=== PATIENT | male | born 1995 | race Two or more races ===

== ENCOUNTER 2018-08-21 16:21 | Emergency (ER) | payer MEDICAID, OTHER ==
[~2018-08-21] VITALS: Ht 167.6 cm; Wt 72.6 kg
[2018-08-21] MEDS ORDERED: SODIUM CHLORIDE 0.9% 1,000 ML IVB ONE (18:48)
[2018-08-21] MEDS ORDERED: PANTOPRAZOLE 40 MG/10 ML VIAL IV STA (18:48)
[2018-08-21] MEDS ORDERED: PROCHLORPERAZINE EDISYLATE 5 MG/ML 2ML VIAL IV ONE (19:00)
[2018-08-21 19:34] LABS: Basophils # (auto) 0 uL; Basophils % (auto) 0.4 % (0.0-2.0); Eosinophils # (auto) 0 uL; Eosinophils % (auto) 0.1 % (0.0-7.0); Hematocrit 46.2 % (41.0-53.0); Hemoglobin 15.8 g/dL (13.5-17.5); Lymphocytes % (auto) 28.9 % (10.0-50.0); Mean Corpuscular Hemoglobin 30.7 pg (28.0-32.0); Mean Corpuscular Hgb Conc. 34.2 g/dL (32.0-36.0); Mean Corpuscular Volume 89.8 fL (80.0-100.0); Monocytes # (auto) 0.4 uL; Monocytes % (auto) 5.6 % (0.0-12.0); Neutrophils # (auto) 4.4 uL; Nucleated Red Blood Cells % 0.1 %; Platelet Count (auto) 233 10^3/uL (140-450); Red Blood Cells 5.15 10^6/uL (4.5-5.90); Red Cell Distribution Width 12.9 % (11.8-14.3); White Blood Cell 6.8 10^3/uL (4.4-10.8)
[2018-08-21 19:51] LABS: Albumin 4.1 g/dL (3.4-5.0)
[2018-08-21 19:54] LABS: BUN/Creatinine Ratio 20.8; Bilirubin, Total 1.1 mg/dL (0.2-1.0); Total Protein 7.9 g/dL (6.4-8.2)
[2018-08-21 21:07] VITALS: BP 126/75
== END 2018-08-21 21:07 | disposition home or self-care (01) ==
LOC: ER 16:21
DX: K29.00 Acute gastritis without bleeding (principal); E11.9 Type 2 diabetes mellitus without complications; F12.90 Cannabis use, unspecified, uncomplicated
CPT/HCPCS: 36415; 80053; 82150; 82962; 83690; 85025; 94761; 96361; 96374; 96375; 99283; C9113; J0780; J7030

== ENCOUNTER 2020-09-16 14:44 | Inpatient (IN) | payer MEDICAID, OTHER ==
[~2020-09-16] VITALS: Ht 180.3 cm; Wt 80.5 kg
[~2020-09-16 14:44] MED LIST: INSLANTI SC; ONDA-144 PO; PANT40TA2 PO
[2020-09-16 15:19] LABS: Basophils # (auto) 0 10 ^3/uL (0-0.2); Basophils % (auto) 0.3 % (0.0-2.0); Eosinophils # (auto) 0 10 ^3/uL (0-0.8); Eosinophils % (auto) 0.1 % (0.0-7.0); Hematocrit 41.3 % (41.0-53.0); Hemoglobin 14.2 g/dL (13.5-17.5); Lymphocytes # (auto) 1.2 10 ^3/uL (0.4-5.4); Lymphocytes % (auto) 15.8 % (10.0-50.0); Mean Corpuscular Hemoglobin 30.9 pg (28.0-32.0); Mean Corpuscular Hgb Conc. 34.3 g/dL (32.0-36.0); Mean Corpuscular Volume 90.1 fL (80.0-100.0); Monocytes # (auto) 0.4 10 ^3/uL (0-1.3); Neutrophils # (auto) 5.9 10 ^3/uL (1.6-8.6); Neutrophils % (auto) 78.8 % (37.0-80.0); Nucleated Red Blood Cells % 0.1 %; Red Blood Cells 4.58 10^6/uL (4.5-5.90); Red Cell Distribution Width 14.3 % (11.8-14.3); White Blood Cell 7.5 10^3/uL (4.4-10.8)
[2020-09-16 15:41] LABS: Albumin 4.2 g/dL (3.4-5.0); BUN/Creatinine Ratio 24.1; Calcium 8.7 mg/dL (8.5-10.1); Potassium 3.6 mmol/L (3.5-5.1)
[2020-09-16 15:49] LABS: Bilirubin, Total 0.9 mg/dL (0.2-1.0); Total Protein 8.5 g/dL (6.4-8.2)
[2020-09-16] MEDS ORDERED: SODIUM CHLORIDE 0.9% 1,000 ML IVB ONE (16:15)
[2020-09-16] MEDS ORDERED: ONDANSETRON HCL 4 MG/2 ML VIAL IV ONE (16:15)
[2020-09-16 17:25] LABS: Urine Bacteria NONE SEEN /hpf (None Seen); Urine Blood 1+ /uL (Negative); Urine Mucus FEW (None Seen); Urine Specific Gravity 1.032 (1.001-1.035); Urine WBC 2 /hpf (0 - 3)
[2020-09-16 17:46] LABS: Alcohol, Urine < 3.0 mg/dL (0-10); Amphetamine Screen, Urine NEGATIVE (NEGATIVE); Barbiturate Scree,Urine NEGATIVE (NEGATIVE); Benzodiazephine Screen, Urine NEGATIVE (NEGATIVE); Cannabinoid Screen, Urine POSITIVE (NEGATIVE); Cocaine Screen, Urine NEGATIVE (NEGATIVE); Opiate Scree,Urine NEGATIVE (NEGATIVE); Phencyclidine Screen, Urine NEGATIVE (NEGATIVE)
[2020-09-16] MEDS ORDERED: ONDANSETRON HCL 4 MG/2 ML VIAL IV PRN (20:15)
[2020-09-16] MEDS ORDERED: TEMAZEPAM 15 MG CAP PO PRN (20:15)
[2020-09-16] MEDS ORDERED: DEXTROSE (50%) 50ML SYRG IV PRN (20:15)
[2020-09-16] MEDS ORDERED: MORPHINE SULFATE INJECTION 2 MG/ML SYRG IV PRN (20:15)
[2020-09-16] MEDS ORDERED: DOCUSATE SOD 100 MG CAP PO PRN (20:15)
[2020-09-16] MEDS ORDERED: HYDROcodone-ACET 5/325MG TAB PO PRN (20:15)
[2020-09-16 21:40] VITALS: BP 162/111
[2020-09-16 22:20] VITALS: BP 162/111
[2020-09-16] MEDS: hydrALAZINE HCL 20 MG/ML VL IV PRN (22:32)
[2020-09-16] MEDS: FAMOTIDINE 20 MG TAB PO SCH (22:32)
[2020-09-16] MEDS: MORPHINE SULFATE 4 MG/ML SYR/VIAL IV PRN (22:33)
[2020-09-16] MEDS: ACCU-CHEK COMFORT CURVE STRIP VI SCH (22:41)
[2020-09-16] MEDS: InsuLIN REG 1unit/0.01ml Soln (100units/ml) SC SCH (23:10)
[2020-09-17] MEDS: MORPHINE SULFATE 4 MG/ML SYR/VIAL IV PRN ×2 (03:53→16:17)
[2020-09-17 05:00] VITALS: BP 146/91
[2020-09-17] MEDS: ACCU-CHEK COMFORT CURVE STRIP VI SCH ×4 (06:26→21:43)
[2020-09-17] MEDS: InsuLIN REG 1unit/0.01ml Soln (100units/ml) SC SCH ×4 (06:51→22:18)
[2020-09-17 07:45] LABS: Basophils # (auto) 0 10 ^3/uL (0-0.2); Basophils % (auto) 0.2 % (0.0-2.0); Eosinophils # (auto) 0 10 ^3/uL (0-0.8); Hematocrit 40.4 % (41.0-53.0); Hemoglobin 13.8 g/dL (13.5-17.5); Lymphocytes # (auto) 1.7 10 ^3/uL (0.4-5.4); Lymphocytes % (auto) 22.8 % (10.0-50.0); Mean Corpuscular Hemoglobin 30.6 pg (28.0-32.0); Mean Corpuscular Hgb Conc. 34.1 g/dL (32.0-36.0); Mean Corpuscular Volume 89.9 fL (80.0-100.0); Monocytes # (auto) 0.6 10 ^3/uL (0-1.3); Monocytes % (auto) 8.1 % (0.0-12.0); Neutrophils % (auto) 68.9 % (37.0-80.0); Nucleated Red Blood Cells % 0.1 %; Red Blood Cells 4.49 10^6/uL (4.5-5.90); Red Cell Distribution Width 14.2 % (11.8-14.3); White Blood Cell 7.3 10^3/uL (4.4-10.8)
[2020-09-17 08:00] VITALS: BP 148/73
[2020-09-17 08:00] LABS: Calcium 8.7 mg/dL (8.5-10.1); Potassium 3.7 mmol/L (3.5-5.1)
[2020-09-17 08:03] LABS: BUN/Creatinine Ratio 25.4
[2020-09-17 08:06] LABS: Bilirubin, Total 0.8 mg/dL (0.2-1.0)
[2020-09-17 08:30] VITALS: BP 148/73
[2020-09-17] MEDS: FAMOTIDINE 20 MG TAB PO SCH ×2 (09:55→21:35)
[2020-09-17] MEDS: PANTOPRAZOLE 40 MG/10 ML VIAL INJ IV SCH (09:55)
[2020-09-17 13:27] VITALS: BP 125/74
[2020-09-17 16:38] VITALS: BP 138/88
[2020-09-17] MEDS: PIPERACILLIN-TAZOB 3.375GM 100 ML IV SCH (21:34)
[2020-09-17 22:00] VITALS: BP 123/89
[2020-09-18 05:00] VITALS: BP 125/83
[2020-09-18] MEDS: ACCU-CHEK COMFORT CURVE STRIP VI SCH ×4 (06:12→21:44)
[2020-09-18] MEDS: PIPERACILLIN-TAZOB 3.375GM 100 ML IV SCH ×3 (06:26→22:22)
[2020-09-18] MEDS: NITROGLYCERIN 0.4 MG SL TAB SL PRN ×3 (06:34→06:52)
[2020-09-18] MEDS ORDERED: ASPirin 81 mg TAB PO ONE (07:00)
[2020-09-18] MEDS: InsuLIN REG 1unit/0.01ml Soln (100units/ml) SC SCH ×4 (07:10→22:03)
[2020-09-18 08:15] VITALS: BP 135/76
[2020-09-18] MEDS: FAMOTIDINE 20 MG TAB PO SCH ×2 (10:29→21:43)
[2020-09-18] MEDS: PANTOPRAZOLE 40 MG/10 ML VIAL INJ IV SCH (10:29)
[2020-09-18 12:00] VITALS: BP 135/76
[2020-09-18] MEDS: hydrALAZINE HCL 20 MG/ML VL IV PRN (17:03)
[2020-09-18 17:06] VITALS: BP 140/106
[2020-09-18 22:00] VITALS: BP 143/94
[2020-09-19 05:00] VITALS: BP 111/69
[2020-09-19] MEDS: ACCU-CHEK COMFORT CURVE STRIP VI SCH ×2 (06:02→11:30)
[2020-09-19] MEDS: PIPERACILLIN-TAZOB 3.375GM 100 ML IV SCH ×2 (06:02→14:00)
[2020-09-19] MEDS: InsuLIN REG 1unit/0.01ml Soln (100units/ml) SC SCH ×2 (06:20→11:30)
[2020-09-19] MEDS ORDERED: GLIMEPIRIDE 2 MG TAB PO SCH (07:00)
[2020-09-19 07:19] LABS: Basophils # (auto) 0 10 ^3/uL (0-0.2); Basophils % (auto) 0.4 % (0.0-2.0); Eosinophils # (auto) 0 10 ^3/uL (0-0.8); Eosinophils % (auto) 0.3 % (0.0-7.0); Hematocrit 39.1 % (41.0-53.0); Hemoglobin 13.3 g/dL (13.5-17.5); Lymphocytes # (auto) 1.4 10 ^3/uL (0.4-5.4); Lymphocytes % (auto) 30.1 % (10.0-50.0); Mean Corpuscular Hemoglobin 30.3 pg (28.0-32.0); Mean Corpuscular Volume 89.3 fL (80.0-100.0); Monocytes # (auto) 0.6 10 ^3/uL (0-1.3); Neutrophils # (auto) 2.6 10 ^3/uL (1.6-8.6); Neutrophils % (auto) 56.2 % (37.0-80.0); Nucleated Red Blood Cells % 0.1 %; Red Blood Cells 4.38 10^6/uL (4.5-5.90); Red Cell Distribution Width 14.2 % (11.8-14.3); White Blood Cell 4.7 10^3/uL (4.4-10.8)
[2020-09-19 07:38] LABS: Chloride 99 mmol/L (98-107); Potassium 3.1 mmol/L (3.5-5.1); Sodium 137 mmol/L (136-145)
[2020-09-19 07:54] LABS: Alanine Aminotransferase 36 U/L (16-61); Albumin 3.6 g/dL (3.4-5.0); Alkaline Phosphatase 84 U/L (45-117); Aspartate Aminotransferase 27 U/L (15-37); BUN/Creatinine Ratio 21.3; Bilirubin, Total 1.3 mg/dL (0.2-1.0); Blood Urea Nitrogen 13 mg/dL (7-18); Calcium 8.8 mg/dL (8.5-10.1); Carbon Dioxide 27 mmol/L (21-32); GFR African American 204 mL/min; GFR Non-African American 169 mL/min; Glucose 180 mg/dL (74-106); Magnesium 2.2 mg/dL (1.6-2.6); Total Protein 7.3 g/dL (6.4-8.2)
[2020-09-19 08:20] VITALS: BP 119/77
[2020-09-19 08:47] LABS: Anion Gap 11 (5-15)
[2020-09-19] MEDS: PANTOPRAZOLE 40 MG/10 ML VIAL INJ IV SCH (09:50)
[2020-09-19] MEDS: FAMOTIDINE 20 MG TAB PO SCH (09:51)
[2020-09-19] MEDS ORDERED: POTASSIUM CHL 20 Meq TABLET PO ONE (11:45)
[2020-09-19] MEDS: MORPHINE SULFATE 4 MG/ML SYR/VIAL IV PRN (12:02)
[2020-09-19 12:45] VITALS: BP 142/84
== END 2020-09-19 15:59 | disposition home or self-care (01) | DRG 251 ==
LOC: EDBD 14:44 → ER 14:44 → TELE 20:03 → MERGE 20:03 → TELE-CENTR 21:40
PROVIDERS: ADMIT Nurse Practitioner; ATTEND Nurse Practitioner
DX: R10.13 Epigastric pain (principal); N13.30 Unspecified hydronephrosis; E11.40 Type 2 diabetes mellitus with diabetic neuropathy, unspecified; F12.10 Cannabis abuse, uncomplicated; F32.9 Major depressive disorder, single episode, unspecified; F41.9 Anxiety disorder, unspecified; Z20.822 Contact with and (suspected) exposure to COVID-19; Z79.4 Long term (current) use of insulin; Z82.49 Family history of ischemic heart disease and other diseases of the circulatory system; Z83.3 Family history of diabetes mellitus
CPT/HCPCS: 36415; 74176; 76775; 80053; 80307; 81001; 82150; 82962; 83036; 83690; 83735; 84484; 85025; 87426; 96361; 96365; 96375; C9113; G0378; J1815; J2405; J2543

== ENCOUNTER 2023-02-26 12:05 | Emergency (ER) | payer MEDICAID ==
[~2023-02-26] VITALS: Ht 177.8 cm; Wt 75.0 kg
[2023-02-26] MEDS ORDERED: SODIUM CHLORIDE 0.9% 1,000 ML IV ONE ×2 (12:45→16:15)
[2023-02-26] MEDS ORDERED: ONDANSETRON HCL 4 MG/2 ML VIAL IV ONE (12:45)
[2023-02-26 13:19] LABS: Basophils # (auto) 0 10 ^3/uL (0-0.2); Basophils % (auto) 0.4 % (0.0-2.0); Eosinophils # (auto) 0 10 ^3/uL (0-0.8); Eosinophils % (auto) 0.8 % (0.0-7.0); Hematocrit 36.2 % (41.0-53.0); Lymphocytes # (auto) 1.5 10 ^3/uL (0.4-5.4); Lymphocytes % (auto) 25.7 % (10.0-50.0); Mean Corpuscular Hemoglobin 30.2 pg (28.0-32.0); Mean Corpuscular Hgb Conc. 33.2 g/dL (32.0-36.0); Mean Corpuscular Volume 90.8 fL (80.0-100.0); Monocytes # (auto) 0.5 10 ^3/uL (0-1.3); Monocytes % (auto) 8.1 % (0.0-12.0); Neutrophils # (auto) 3.8 10 ^3/uL (1.6-8.6); Nucleated Red Blood Cells % 0.2 %; Red Blood Cells 3.99 10^6/uL (4.5-5.90); Red Cell Distribution Width 13.7 % (11.8-14.3); White Blood Cell 5.9 10^3/uL (4.4-10.8)
[2023-02-26 13:26] LABS: Urine Bacteria NONE SEEN /hpf (None Seen); Urine Blood 1+ /uL (Negative); Urine Clarity Clear (Clear); Urine Color Yellow (Yellow); Urine Hyaline Cast FEW /lpf (0 - 2); Urine Mucus FEW (None Seen); Urine Protein, UAD 3+ (Negative); Urine Urobilinogen Normal (Negative); Urine WBC 2 /hpf (0 - 3)
[2023-02-26 13:33] LABS: Amphetamine Screen, Urine Neg (NEGATIVE); Barbiturate Scree,Urine Neg (NEGATIVE); Benzodiazephine Screen, Urine Neg (NEGATIVE); Cocaine Screen, Urine Neg (NEGATIVE); Opiate Scree,Urine Neg (NEGATIVE); Phencyclidine Screen, Urine Neg (NEGATIVE)
[2023-02-26 13:34] LABS: Cannabinoid Screen, Urine Pos (NEGATIVE)
[2023-02-26 13:35] LABS: Alanine Aminotransferase 30 U/L (7-40); Albumin 4.4 g/dL (3.2-4.8); Alkaline Phosphatase 63 U/L (46-116); Anion Gap 6.8 (5-15); Aspartate Aminotransferase 14 U/L (13-40); BUN/Creatinine Ratio 14.8 (10.0-20.0); Blood Alcohol < 3.0 mg/dL (<10); Blood Urea Nitrogen 17 mg/dL (9-23); Calcium 9.3 mg/dL (8.5-10.1); Carbon Dioxide 30.2 mmol/L (20-30); Chloride 102 mmol/L (98-107); Creatine Kinase IFCC 340 U/L (46-171); Glucose 206 mg/dL (74-106); Lipase 55 U/L (12-53); Magnesium 2.3 mg/dL (1.6-2.6); Sodium 139 mmol/L (136-145); Total Protein 7.2 g/dL (5.7-8.2)
[2023-02-26] MEDS ORDERED: IOHEXOL 300 MG/ML 100ML BOTTLE IJ ONE (14:34)
[2023-02-26] MEDS ORDERED: ZOFR4T PO (16:52)
[2023-02-26 17:48] VITALS: BP 161/118; PULSE 99; RESP 17; TEMP 98; O2SAT 100
== END 2023-02-26 17:53 | disposition home or self-care (01) ==
LOC: ER 12:05
DX: E86.0 Dehydration (principal); F12.10 Cannabis abuse, uncomplicated; M54.9 Dorsalgia, unspecified; E11.9 Type 2 diabetes mellitus without complications; Z79.899 Other long term (current) drug therapy
CPT/HCPCS: 36415; 74177; 80053; 80307; 80320; 81001; 82550; 82962; 83605; 83690; 83735; 85025; 96360; 96361; 99285; J7030; Q9967

== ENCOUNTER 2023-08-19 14:10 | Emergency (ER) | payer MEDICAID ==
[~2023-08-19] VITALS: Ht 177.8 cm; Wt 77.2 kg
[~2023-08-19 14:10] MED LIST changes: +ZOFR4T PO
[2023-08-19 15:28] LABS: Basophils # (auto) 0 10 ^3/uL (0-0.2); Basophils % (auto) 0.6 % (0.0-2.0); Eosinophils # (auto) 0.2 10 ^3/uL (0-0.8); Eosinophils % (auto) 2.7 % (0.0-7.0); Hematocrit 33.6 % (41.0-53.0); Hemoglobin 11.3 g/dL (13.5-17.5); Lymphocytes # (auto) 1.7 10 ^3/uL (0.4-5.4); Lymphocytes % (auto) 24.8 % (10.0-50.0); Mean Corpuscular Hemoglobin 31.2 pg (28.0-32.0); Mean Corpuscular Hgb Conc. 33.5 g/dL (32.0-36.0); Mean Corpuscular Volume 92.9 fL (80.0-100.0); Monocytes # (auto) 0.5 10 ^3/uL (0-1.3); Monocytes % (auto) 7.4 % (0.0-12.0); Neutrophils # (auto) 4.5 10 ^3/uL (1.6-8.6); Neutrophils % (auto) 64.5 % (37.0-80.0); Red Blood Cells 3.62 10^6/uL (4.5-5.90); Red Cell Distribution Width 14.5 % (11.8-14.3); White Blood Cell 7.1 10^3/uL (4.4-10.8)
[2023-08-19 15:47] LABS: Alanine Aminotransferase 16 U/L (7-40); Alkaline Phosphatase 56 U/L (46-116); Anion Gap 1 (5-15); Aspartate Aminotransferase 18 U/L (13-40); BUN/Creatinine Ratio 14.5 (10.0-20.0); Bilirubin, Total 0.7 mg/dL (0.2-1.0); Blood Urea Nitrogen 19 mg/dL (9-23); Calcium 9.5 mg/dL (8.5-10.1); Carbon Dioxide 33 mmol/L (20-30); Chloride 109 mmol/L (98-107); Glucose 136 mg/dL (74-106); Potassium 5.4 mmol/L (3.5-5.1); Sodium 143 mmol/L (136-145); Total Protein 6.3 g/dL (5.7-8.2)
[2023-08-19] MEDS: ALBUTEROL SULF 2.5 MG/0.5ML(0.5%) NEB SOLN NEB ONE (16:23)
[2023-08-19] MEDS: ALBUTEROL SULF 2.5 MG/0.5ML(0.5%) NEB SOLN ONE (16:23)
[2023-08-19 17:23] LABS: Urine Bacteria NONE SEEN /hpf (None Seen); Urine Blood 1+ /uL (Negative); Urine Clarity Clear (Clear); Urine Color Yellow (Yellow); Urine Hyaline Cast FEW /lpf (0 - 2); Urine Protein, UAD 3+ (Negative); Urine Specific Gravity 1.015 (1.001-1.035); Urine Urobilinogen Normal (Negative); Urine WBC 1 /hpf (0 - 3)
[2023-08-19] MEDS: FUROSEMIDE 20 MG/2 ML VIAL IV ONE (19:56)
[2023-08-19 20:00] VITALS: BP 125/92; PULSE 94; RESP 16; TEMP 98.2; O2SAT 96
== END 2023-08-19 20:00 | disposition home or self-care (01) ==
LOC: ER 14:10
DX: I10 Essential (primary) hypertension (principal); E87.5 Hyperkalemia; E11.9 Type 2 diabetes mellitus without complications; F12.10 Cannabis abuse, uncomplicated
CPT/HCPCS: 36415; 71045; 80053; 81001; 83880; 84484; 85025; 93005; 94640; 96374; 99285; J1940

== ENCOUNTER 2023-09-07 21:41 | Emergency (ER) | payer MEDICAID ==
[~2023-09-07] VITALS: Ht 177.8 cm; Wt 77.3 kg
[2023-09-07 22:07] VITALS: BP 127/87; PULSE 88; RESP 18; TEMP 97.4
[2023-09-08] MEDS: BACITRACIN TOP OINT 1 UD PKG TOP ONE (00:22)
[2023-09-08] MEDS: KETOROLAC TROMETH 30 MG/ML 1ML VIAL IM ONE (00:28)
[2023-09-08] MEDS: TETANUS-DIPTH-ACEL PERTUSSIS 0.5ML SYR Tdap IM ONE (00:28)
[2023-09-08 00:42] VITALS: O2SAT 98
== END 2023-09-08 00:55 | disposition home or self-care (01) ==
LOC: ER 21:41
DX: T25.231A Burn of second degree of right toe(s) (nail), initial encounter (principal); I10 Essential (primary) hypertension; E11.9 Type 2 diabetes mellitus without complications; F12.10 Cannabis abuse, uncomplicated; X08.8XXA Exposure to other specified smoke, fire and flames, initial encounter; Y93.89 Activity, other specified; Y92.89 Other specified places as the place of occurrence of the external cause; Y99.8 Other external cause status
CPT/HCPCS: 16020; 90471; 90715; 96372; 99284; J1885

== ENCOUNTER 2023-09-10 16:18 | Emergency (ER) | payer MEDICAID ==
[~2023-09-10] VITALS: Ht 177.8 cm; Wt 77.3 kg
[2023-09-10] MEDS ORDERED: IBUP-1456 PO (22:02)
[2023-09-10] MEDS ORDERED: CEPH500C PO (22:02)
[2023-09-10 22:12] VITALS: BP 127/64; PULSE 84; RESP 16; TEMP 98; O2SAT 100
[2023-09-10] MEDS: cefTRIAXone SOD 1,000 MG VL IM ONE (22:28)
== END 2023-09-10 22:38 | disposition home or self-care (01) ==
LOC: ER 16:18
DX: T25.222D Burn of second degree of left foot, subsequent encounter (principal); T25.221D Burn of second degree of right foot, subsequent encounter; T31.0 Burns involving less than 10% of body surface; E11.9 Type 2 diabetes mellitus without complications; I10 Essential (primary) hypertension; F15.90 Other stimulant use, unspecified, uncomplicated; Z79.899 Other long term (current) drug therapy; X08.8XXD Exposure to other specified smoke, fire and flames, subsequent encounter
CPT/HCPCS: 16020; 96372; 99283; J0696

== ENCOUNTER 2024-04-15 18:04 | Inpatient (IN) | payer MEDICAID ==
[~2024-04-15] VITALS: Ht 177.8 cm; Wt 73.0 kg
[~2024-04-15 18:04] MED LIST changes: +CEPH500C PO; +IBUP-1456 PO
[2024-04-15 19:01] LABS: Urine Bacteria None Seen /hpf (None Seen)
[2024-04-15 19:27] LABS: Urine Amorphous Crystal FEW /hpf (None Seen); Urine Blood 1+ /uL (Negative); Urine Clarity Clear (Clear); Urine Color Light-Yellow (Yellow); Urine Hyaline Cast FEW /lpf (0 - 2); Urine Protein, UAD 3+ (Negative); Urine Specific Gravity 1.016 (1.001-1.035); Urine Urobilinogen Normal (Negative); Urine WBC 1 /hpf (0 - 3)
[2024-04-15 19:28] LABS: Amphetamine Screen, Urine Neg (NEGATIVE); Barbiturate Scree,Urine Neg (NEGATIVE); Benzodiazephine Screen, Urine Neg (NEGATIVE)
[2024-04-15 19:29] LABS: Cannabinoid Screen, Urine Pos (NEGATIVE); Cocaine Screen, Urine Neg (NEGATIVE); Opiate Scree,Urine Neg (NEGATIVE); Phencyclidine Screen, Urine Neg (NEGATIVE)
[2024-04-15 19:53] LABS: Basophils # (auto) 0 10 ^3/uL (0-0.2); Basophils % (auto) 0.8 % (0.0-2.0); Eosinophils # (auto) 0 10 ^3/uL (0-0.8); Eosinophils % (auto) 0.8 % (0.0-7.0); Hematocrit 34.7 % (41.0-53.0); Hemoglobin 11.9 g/dL (13.5-17.5); Lymphocytes # (auto) 1.6 10 ^3/uL (0.4-5.4); Lymphocytes % (auto) 28.9 % (10.0-50.0); Mean Corpuscular Hemoglobin 32.2 pg (28.0-32.0); Mean Corpuscular Hgb Conc. 34.4 g/dL (32.0-36.0); Mean Corpuscular Volume 93.6 fL (80.0-100.0); Monocytes # (auto) 0.4 10 ^3/uL (0-1.3); Monocytes % (auto) 7.4 % (0.0-12.0); Neutrophils # (auto) 3.4 10 ^3/uL (1.6-8.6); Neutrophils % (auto) 62.1 % (37.0-80.0); Platelet Count (auto) 219 10^3/uL (140-450); Red Cell Distribution Width 13.5 % (11.8-14.3); White Blood Cell 5.5 10^3/uL (4.4-10.8)
[2024-04-15 20:06] LABS: Alanine Aminotransferase 23 U/L (7-40); Albumin 4.4 g/dL (3.2-4.8); Alkaline Phosphatase 67 U/L (46-116); Anion Gap 4 (5-15); Aspartate Aminotransferase 13 U/L (13-40); BUN/Creatinine Ratio 16.7 (10.0-20.0); Bilirubin, Total 0.5 mg/dL (0.2-1.0); Blood Urea Nitrogen 35 mg/dL (9-23); Calcium 9.8 mg/dL (8.7-10.4); Carbon Dioxide 29 mmol/L (20-31); Chloride 105 mmol/L (98-107); Glucose 218 mg/dL (74-106); Lipase 60 U/L (12-53); Magnesium 2.7 mg/dL (1.6-2.6); Potassium 5.5 mmol/L (3.5-5.1); Sodium 138 mmol/L (136-145); Total Protein 7.1 g/dL (5.7-8.2)
[2024-04-15] MEDS: ALBUTEROL SULF 2.5 MG/0.5ML(0.5%) NEB SOLN ONE (21:04)
[2024-04-15] MEDS: ALBUTEROL SULF 2.5 MG/0.5ML(0.5%) NEB SOLN NEB ONE (21:04)
[2024-04-16] MEDS ORDERED: ONDANSETRON HCL 4 MG/2 ML VIAL IV PRN (05:45)
[2024-04-16] MEDS ORDERED: DEXTROSE (50%) 50ML SYRG IV PRN (05:45)
[2024-04-16 06:35] VITALS: PULSE 98; RESP 22; O2SAT 99
[2024-04-16] MEDS: SODIUM CHLORIDE 0.9% 1,000 ML IV ONE ×3 (07:01→08:18)
[2024-04-16] MEDS: ONDANSETRON HCL 4 MG/2 ML VIAL IV ONE (07:06)
[2024-04-16] MEDS: CALCIUM GLUC 1,000mg/50ml-NS 50 ML IV ONE (07:12)
[2024-04-16 07:50] LABS: Anion Gap 9 (5-15); Carbon Dioxide 24 mmol/L (20-31); Chloride 106 mmol/L (98-107); Potassium 4.9 mmol/L (3.5-5.1); Sodium 139 mmol/L (136-145)
[2024-04-16 07:51] LABS: Calcium 9.4 mg/dL (8.7-10.4)
[2024-04-16 07:56] LABS: BUN/Creatinine Ratio 11.5 (10.0-20.0); Blood Alcohol < 3.0 mg/dL (<10); Blood Urea Nitrogen 27 mg/dL (9-23); Glucose 202 mg/dL (74-106)
[2024-04-16 07:57] LABS: Magnesium 2.8 mg/dL (1.6-2.6)
[2024-04-16 08:00] VITALS: PULSE 95; RESP 12; O2SAT 98
[2024-04-16 08:11] LABS: Basophils # (auto) 0 10 ^3/uL (0-0.2); Basophils % (auto) 0.4 % (0.0-2.0); Eosinophils # (auto) 0.1 10 ^3/uL (0-0.8); Eosinophils % (auto) 1.1 % (0.0-7.0); Hematocrit 33.7 % (41.0-53.0); Hemoglobin 11.5 g/dL (13.5-17.5); Lymphocytes # (auto) 1.7 10 ^3/uL (0.4-5.4); Lymphocytes % (auto) 25.4 % (10.0-50.0); Mean Corpuscular Hemoglobin 32.7 pg (28.0-32.0); Mean Corpuscular Hgb Conc. 34.1 g/dL (32.0-36.0); Mean Corpuscular Volume 95.8 fL (80.0-100.0); Monocytes # (auto) 0.6 10 ^3/uL (0-1.3); Monocytes % (auto) 9.4 % (0.0-12.0); Neutrophils # (auto) 4.3 10 ^3/uL (1.6-8.6); Neutrophils % (auto) 63.7 % (37.0-80.0); Platelet Count (auto) 192 10^3/uL (140-450); Red Blood Cells 3.52 10^6/uL (4.5-5.90); White Blood Cell 6.8 10^3/uL (4.4-10.8)
[2024-04-16] MEDS: ACCU-CHEK COMFORT CURVE STRIP VI SCH (08:18)
[2024-04-16] MEDS: FUROSEMIDE 20 MG/2 ML VIAL IV ONE (08:27)
[2024-04-16] MEDS: InsuLIN REG 1unit/0.01ml Soln (100units/ml) SC SCH (08:27)
[2024-04-16 08:48] LABS: Lipase 58 U/L (12-53)
[2024-04-16] MEDS: SODIUM CHLORIDE 0.9% 1,000 ML IV SCH ×2 (10:00→12:52)
[2024-04-16] MEDS: PANTOPRAZOLE 40 MG/10 ML VIAL INJ IV SCH (10:10)
[2024-04-16 14:07] LABS: Urine Bacteria None Seen /hpf (None Seen); Urine Blood TRACE /uL (Negative); Urine Clarity Clear (Clear); Urine Color Light-Yellow (Yellow); Urine Hyaline Cast FEW /lpf (0 - 2); Urine Protein, UAD 2+ (Negative); Urine Specific Gravity 1.009 (1.001-1.035); Urine Urobilinogen Normal (Negative); Urine WBC <1 /hpf (0 - 3); Urine pH 5.5 (5.0-9.0)
[2024-04-16] MEDS: LABETALOL HCL 20 MG/4 ML VL IV PRN (18:01)
[2024-04-16 18:04] LABS: COVID19 ANTIGEN SOFIA FIA NEGATIVE (NEGATIVE)
[2024-04-16] MEDS: HYDROcodone-ACET 5/325MG TAB PO PRN (18:15)
[2024-04-16 18:52] LABS: Chloride 108 mmol/L (98-107); Potassium 4.4 mmol/L (3.5-5.1); Sodium 140 mmol/L (136-145)
[2024-04-16 18:53] LABS: Anion Gap 6 (5-15); Calcium 9.1 mg/dL (8.7-10.4); Carbon Dioxide 26 mmol/L (20-31)
[2024-04-16 18:58] LABS: BUN/Creatinine Ratio 15.9 (10.0-20.0); Blood Urea Nitrogen 33 mg/dL (9-23); Glucose 129 mg/dL (74-106)
[2024-04-16 19:30] VITALS: PULSE 82; RESP 16; O2SAT 96
[2024-04-16] MEDS: amLODIPine BESYLATE 5 MG TAB PO ONE ×2 (20:09→23:08)
[2024-04-16 21:00] VITALS: BP 179/116; PULSE 98; RESP 20; TEMP 98.8; O2SAT 91
[2024-04-16 23:23] VITALS: PULSE 81; RESP 18
[2024-04-17] VITALS (8 sets, daily range): BP systolic 119–166; BP diastolic 76–97; PULSE 75–99; RESP 18–21; TEMP 98.2–99.3; O2SAT 94–99
[2024-04-17] MEDS ORDERED: METF-372 PO (00:03)
[2024-04-17 06:13] LABS: Basophils # (auto) 0 10 ^3/uL (0-0.2); Basophils % (auto) 0.5 % (0.0-2.0); Eosinophils # (auto) 0.1 10 ^3/uL (0-0.8); Eosinophils % (auto) 1.6 % (0.0-7.0); Hematocrit 32.6 % (41.0-53.0); Hemoglobin 11.4 g/dL (13.5-17.5); Lymphocytes # (auto) 1.5 10 ^3/uL (0.4-5.4); Lymphocytes % (auto) 22.8 % (10.0-50.0); Mean Corpuscular Hemoglobin 32.7 pg (28.0-32.0); Mean Corpuscular Volume 93.4 fL (80.0-100.0); Monocytes # (auto) 0.4 10 ^3/uL (0-1.3); Monocytes % (auto) 6.9 % (0.0-12.0); Neutrophils # (auto) 4.4 10 ^3/uL (1.6-8.6); Neutrophils % (auto) 68.2 % (37.0-80.0); Platelet Count (auto) 192 10^3/uL (140-450); Red Blood Cells 3.49 10^6/uL (4.5-5.90); Red Cell Distribution Width 13.5 % (11.8-14.3); White Blood Cell 6.4 10^3/uL (4.4-10.8)
[2024-04-17 06:23] LABS: Anion Gap 7 (5-15); Carbon Dioxide 26 mmol/L (20-31); Chloride 107 mmol/L (98-107); Potassium 4.6 mmol/L (3.5-5.1); Sodium 140 mmol/L (136-145)
[2024-04-17 06:25] LABS: Calcium 9.5 mg/dL (8.7-10.4)
[2024-04-17 06:29] LABS: BUN/Creatinine Ratio 12.8 (10.0-20.0); Blood Urea Nitrogen 23 mg/dL (9-23); Glucose 152 mg/dL (74-106)
[2024-04-17 06:30] LABS: Lipase 63 U/L (12-53)
[2024-04-17] MEDS: amLODIPine BESYLATE 5 MG TAB PO SCH (09:04)
[2024-04-17] MEDS: SUCRALFATE 1 GM/10 ML ORAL SUSP PO SCH (21:34)
[2024-04-17] MEDS: PANTOPRAZOLE 40 MG/10 ML VIAL INJ IV SCH (21:34)
[2024-04-18] VITALS (8 sets, daily range): BP systolic 123–153; BP diastolic 56–103; PULSE 78–102; RESP 18–22; TEMP 97.8–98.8; O2SAT 95–98
[2024-04-18] MEDS: hydrALAZINE HCL 20 MG/ML VL IV PRN (01:35)
[2024-04-18 05:37] LABS: Basophils # (auto) 0 10 ^3/uL (0-0.2); Basophils % (auto) 0.5 % (0.0-2.0); Eosinophils # (auto) 0.2 10 ^3/uL (0-0.8); Eosinophils % (auto) 2.6 % (0.0-7.0); Hematocrit 36.3 % (41.0-53.0); Hemoglobin 12.1 g/dL (13.5-17.5); Lymphocytes # (auto) 2.7 10 ^3/uL (0.4-5.4); Lymphocytes % (auto) 33.9 % (10.0-50.0); Mean Corpuscular Hemoglobin 31.4 pg (28.0-32.0); Mean Corpuscular Hgb Conc. 33.4 g/dL (32.0-36.0); Mean Corpuscular Volume 93.8 fL (80.0-100.0); Monocytes # (auto) 0.6 10 ^3/uL (0-1.3); Monocytes % (auto) 7.1 % (0.0-12.0); Neutrophils # (auto) 4.5 10 ^3/uL (1.6-8.6); Neutrophils % (auto) 55.9 % (37.0-80.0); Platelet Count (auto) 238 10^3/uL (140-450); Red Blood Cells 3.86 10^6/uL (4.5-5.90); Red Cell Distribution Width 13.8 % (11.8-14.3); White Blood Cell 8.1 10^3/uL (4.4-10.8)
[2024-04-18 05:40] LABS: Chloride 105 mmol/L (98-107); Potassium 4.6 mmol/L (3.5-5.1); Sodium 139 mmol/L (136-145)
[2024-04-18 05:41] LABS: Anion Gap 7 (5-15); Calcium 9.6 mg/dL (8.7-10.4); Carbon Dioxide 27 mmol/L (20-31)
[2024-04-18 05:46] LABS: BUN/Creatinine Ratio 10.3 (10.0-20.0); Blood Urea Nitrogen 19 mg/dL (9-23); Glucose 184 mg/dL (74-106)
[2024-04-18 10:17] LABS: INR 1.08 (0.9-1.15); Partial Thromboplastin Time 28.1 SEC (24.5-34.5); Prothrombin Time 11.4 sec (9.3-11.8)
[2024-04-18] MEDS ORDERED: PROPOFOL 10 MG/ML 20 ML IV ONE (15:03)
[2024-04-18] MEDS ORDERED: LIDOCAINE 2% (LOCAL ANESTH.) PF 5ml SDV ONE (15:03)
[2024-04-19 01:00] VITALS: BP 135/95; PULSE 79; RESP 17; TEMP 99.1; O2SAT 97
[2024-04-19 06:36] LABS: Basophils # (auto) 0 10 ^3/uL (0-0.2); Basophils % (auto) 0.6 % (0.0-2.0); Eosinophils # (auto) 0.2 10 ^3/uL (0-0.8); Eosinophils % (auto) 3.3 % (0.0-7.0); Hematocrit 29.7 % (41.0-53.0); Hemoglobin 10.1 g/dL (13.5-17.5); Lymphocytes # (auto) 1.8 10 ^3/uL (0.4-5.4); Lymphocytes % (auto) 32.8 % (10.0-50.0); Mean Corpuscular Hemoglobin 32.1 pg (28.0-32.0); Mean Corpuscular Hgb Conc. 34.2 g/dL (32.0-36.0); Monocytes # (auto) 0.5 10 ^3/uL (0-1.3); Monocytes % (auto) 8.5 % (0.0-12.0); Neutrophils % (auto) 54.8 % (37.0-80.0); Platelet Count (auto) 166 10^3/uL (140-450); Red Blood Cells 3.16 10^6/uL (4.5-5.90); Red Cell Distribution Width 13.4 % (11.8-14.3); White Blood Cell 5.4 10^3/uL (4.4-10.8)
[2024-04-19 06:39] LABS: Anion Gap 3 (5-15); Carbon Dioxide 28 mmol/L (20-31); Chloride 108 mmol/L (98-107); Sodium 139 mmol/L (136-145)
[2024-04-19 06:40] LABS: Calcium 9.1 mg/dL (8.7-10.4)
[2024-04-19 06:45] LABS: Blood Urea Nitrogen 18 mg/dL (9-23); Glucose 173 mg/dL (74-106)
[2024-04-19 08:00] VITALS: PULSE 70; RESP 17
[2024-04-19 09:23] VITALS: BP 147/99; PULSE 76; RESP 16; TEMP 98.5; O2SAT 98
[2024-04-19 09:34] LABS: Hepatitis B Surface Antigen Negative (Negative)
[2024-04-19 09:56] LABS: Hepatitis C Antibody Negative (Negative)
[2024-04-19] MEDS: THROAT LOZENGES(CEPASTAT) MT PRN (12:12)
[2024-04-19 13:39] VITALS: BP 155/99; PULSE 92; RESP 17; TEMP 98.6; O2SAT 97
[2024-04-19 14:13] VITALS: BP 137/89; PULSE 84
[2024-04-20] MEDS ORDERED: PANT40TA2 PO (08:42)
== END 2024-04-19 15:00 | disposition home or self-care (01) | DRG 241 ==
LOC: ER 18:11 → TELE 23:47 → TELE-CENTR 04-16 22:03 → CENTRAL 04-18 12:21
PROVIDERS: ADMIT Internal Medicine Geriatric Medicine; ATTEND Internal Medicine Geriatric Medicine
PROC: 0DB68ZX Excision of Stomach, Via Natural or Artificial Opening Endoscopic, Diagnostic (ICD-10-PCS; 2024-04-18)
PROC: 0DB98ZX Excision of Duodenum, Via Natural or Artificial Opening Endoscopic, Diagnostic (ICD-10-PCS; principal; 2024-04-18 14:57)
DX: K29.00 Acute gastritis without bleeding (principal); N17.0 Acute kidney failure with tubular necrosis; E83.41 Hypermagnesemia; D63.8 Anemia in other chronic diseases classified elsewhere; E86.0 Dehydration; E10.9 Type 1 diabetes mellitus without complications; F12.10 Cannabis abuse, uncomplicated; E87.5 Hyperkalemia; N18.9 Chronic kidney disease, unspecified; K44.9 Diaphragmatic hernia without obstruction or gangrene; E83.42 Hypomagnesemia; K21.9 Gastro-esophageal reflux disease without esophagitis; R11.15 Cyclical vomiting syndrome unrelated to migraine; K29.90 Gastroduodenitis, unspecified, without bleeding; I12.9 Hypertensive chronic kidney disease with stage 1 through stage 4 chronic kidney disease, or unspecified chronic kidney disease; Z79.4 Long term (current) use of insulin; Z79.899 Other long term (current) drug therapy
CPT/HCPCS: 36415; 74176; 76700; 80048; 80053; 80307; 80320; 81001; 82962; 83036; 83605; 83690; 83735; 83880; 84484; 85025; 85610; 85730; 86803; 86850; 86900; 86901; 87340; 87426; 94640; 99291; G0378; J1815; J2003; J2405; J2470; J2704

== ENCOUNTER 2024-07-23 20:50 | Emergency (ER) | payer MEDICAID ==
[~2024-07-23] VITALS: Ht 182.9 cm; Wt 170.0 kg
[2024-07-23 20:50] VITALS: BP 202/115; PULSE 106; RESP 18; O2SAT 98
[~2024-07-23 20:50] MED LIST changes: -CEPH500C PO; +METF-372 PO
[2024-07-23] MEDS: ONDANSETRON HCL 4 MG/2 ML VIAL IV ONE (22:20)
[2024-07-23] MEDS: PANTOPRAZOLE 40 MG/10 ML VIAL INJ IV ONE (22:21)
[2024-07-23 22:29] LABS: Hematocrit 27.9 % (41.0-53.0); Hemoglobin 9.2 g/dL (13.5-17.5); Mean Corpuscular Hemoglobin 31.1 pg (28.0-32.0); Mean Corpuscular Hgb Conc. 33.1 g/dL (32.0-36.0); Mean Corpuscular Volume 93.9 fL (80.0-100.0); Platelet Count (auto) 168 10^3/uL (140-450); Red Blood Cells 2.97 10^6/uL (4.5-5.90); Red Cell Distribution Width 14.3 % (11.8-14.3)
[2024-07-23 22:37] LABS: Basophils % (manual) 0 (0.0-2.0); Blast Cells 0; Eosinophils % (manual) 0 (0-7); Metamyelocytes % 0; Myelocytes % 0; Promyelocytes % 0; Reactive Lymphocytes 0
[2024-07-23 22:44] LABS: Alanine Aminotransferase 35 U/L (7-40); Albumin 3.7 g/dL (3.2-4.8); Alkaline Phosphatase 75 U/L (46-116); Anion Gap 7 (5-15); Aspartate Aminotransferase 24 U/L (13-40); BUN/Creatinine Ratio 18.2 (10.0-20.0); Calcium 9.2 mg/dL (8.7-10.4); Carbon Dioxide 25 mmol/L (20-31)
[2024-07-23 22:45] LABS: Bilirubin, Total 0.6 mg/dL (0.2-1.0); Total Protein 6.4 g/dL (5.7-8.2)
[2024-07-23 22:48] LABS: Blood Urea Nitrogen 41 mg/dL (9-23); Chloride 113 mmol/L (98-107); Glucose 313 mg/dL (74-106); Sodium 145 mmol/L (136-145)
--- NOTE | 2024-07-23 22:50 | ED.PDOC ---
GI ASSESSMENT HPI Comments 29-year-old male came to emergency room for abdominal pain. Patient has history of hypertension, diabetes and liver disease, patient has poor compliance to his medications. Few hours ago, was complaining of epigastric abdominal pain, associated with multiple bouts of nausea and vomiting earlier. Noted bright red bloody emesis later on. Patient brought in for further evaluation and management. Upon arrival, blood sugar was 304 with a blood pressure of 202/15 mmHg Chief Complaint: Nausea/Vomiting Time Seen by MD: 22:49 Primary Care Provider: JOSELUIS Reviewed Notes: Nurses Notes Allergies: Coded Allergies: NO KNOWN ALLERGIES (Unverified , 12/01/18) Home Meds Active Scripts Pantoprazole Sodium Sesquihydr (Protonix) 40 Mg Tab, 40 MG PO DAILY for 30 Days, #30 TAB Prov:GIA REIS RESIDENT 04/20/24 Ibuprofen (Ibuprofen) 800 Mg Tab, 1 TAB PO TID PRN, #30 TAB 1 Refill Prov:ODILON MEREDITH 09/10/23 Ondansetron Odt 4MG Tab (ZOFRAN PO) 4 Mg Tb, 4 MG PO Q8HPRN PRN for 3 Days, #9 TAB ODT TAB-DISSOLVE IN MOUTH, THEN SWALLOW Prov:VERNON LAZARO DO 02/26/23 Pantoprazole Sodium Sesquihydr (Protonix) 40 Mg Tab, 40 MG PO DAILY, #30 TAB Prov:VENKATA DE JESUS MD 12/22/18 Ondansetron (Zofran) 4 Mg Tab, 1 TAB PO Q8HR, #20 TAB Prov:VENKATA DE JESUS MD 12/22/18 Reported Medications Metformin Hydrochloride (Metformin Hcl) 1,000 Mg Tab, 1 TAB PO DAILY, #60 TAB 5 Refills 04/17/24 Insulin Glargine (Lantus) 100 Unit/Ml Inj, 10 UNIT SC PCHS, INJ 12/03/18 Information Source: Patient, Emergency Med Personnel Mode of Arrival: EMS Timing: Hours Duration: Since onset, Intermittent Prehospital treatment: None Quality: Aching Vomitus: Watery, Bright Red Bood Stool: Normal Severity: Moderate Recent: Ingestion of ETOH Recent Hx of: None Pain Location: Epigastric Modifying Factors: Nothing Associated sign and symptoms: Nausea, Vomiting, Hematemesis, Abdominal Pain Past Medical History PAST MEDICAL HISTORY: DM, HTN, Liver Past Medical History (Other): GI bleed Surgical History: Denies all surgeries Family History Family History: Reviewed,noncontributory to illness, Unknown Social History Smoker: Non-Smoker Alcohol: Rarely Drugs: Marijuana Lives In: Home Constitutional: denies: chills, diaphoresis, fatigue, fever, malaise, sweats, weakness, others EENTM: denies: blurred vision, double vision, ear bleeding, ear discharge, ear drainage, ear pain, ear ringing, eye pain, eye redness, hearing loss, mouth pain, mouth swelling, nasal discharge, nose bleeding, nose congestion, nose pain, photophobia, tearing, throat pain, throat swelling, voice changes, others Respiratory: denies: cough, hemoptysis, orthopnea, SOB at rest, shortness of breath, SOB with excertion, stridor, wheezing, others Cardiovascular: denies: chest pain, dizzy spells, diaphoresis, Dyspnea on exertion, edema, irregular heart beat, left arm pain, lightheadedness, palpitations, PND, syncope, others Gastrointestinal: reports: abdominal pain, hematemesis, nausea, vomiting; denies: abdomen distended, blood streaked bowels, constipated, diarrhea, dysphagia, difficulty swallowing, melena, poor appetite, poor fluid intake, rectal bleeding, rectal pain, others Genitourinary: denies: burning, dysuria, flank pain, frequency, hematuria, incontinence, penile discharge, penile sore, pain, testicle pain, testicle swelling, urgency, others Neurological: denies: dizziness, fainting, headache, left sided numbness, left sided weakness, numbness, paresthesia, pre-existing deficit, right sided numbness, right sided weakness, seizure, speech problems, tingling, tremors, weakness, others Musculoskeletal: denies: back pain, gout, joint pain, joint swelling, muscle pain, muscle stiffness, neck pain, others Integumetry: denies: bruises, change in color, change in hair/nails, dryness, laceration, lesions, lumps, rash, wounds, others Allergic/Immunocompromised: denies: Difficulty Healing, Frequent Infections, Hives, Itching, others Hematologic/Lymphatic: denies: anemia, blood clots, easy bleeding, easy bruising, swollen glands, others Endocrine: denies: excessive hunger, excessive sweating, excessive thirst, excessive urination, flushing, intolerance to cold, intolerance to heat, unexplained weight gain, unexplained weight loss, others Psychiatric: denies: anxiety, bipolar disorder, depression, hopeless, panic disorder, schizophrenia, sleepless, suicidal, others Physical Exam General Appearance: No Apparent Distress, Normal HEENT: Normal ENT Inspection, Pharynx Normal, TMs Normal Neck: Full Range of Motion, Non-Tender, Normal, Normal Inspection Respiratory: Chest Non-Tender, Lungs Clear, No Accessory Muscle Use, No Respiratory Distress, Normal Breath Sounds Cardiovascular: No Edema, No JVD, No Murmur, No Gallop, Normal Peripheral Pulses, Regular Rate/Rhythm Breast Exam: Deferred Gastrointestinal: Epigastric, No Organomegaly, No Pulsatile Mass, Normal Bowel Sounds, Soft, Tenderness Genitalia: Deferred Pelvic: Deferred Rectal: Deferred Extremities: No calf tenderness, Normal capillary refill, Normal inspection, Normal range of motion, Non-tender, No pedal edema Musculoskeletal : Apperance: Normal Neurologic: Alert, chief ultrasound technologist II-XII nml as Tested, No Motor Deficits, Normal Affect, Normal Mood, No Sensory Deficits Cerebellar Function: Normal Reflexes: Normal Skin: Dry, Normal Color, Warm Lymphatic: No Adenopathy Was a procedure done? Was a procedure done?: No GI differential Dx Differential Diagnosis: Diverticular disease, Gastritis/PUD, Gastroenteritis, GI hemorrhage, Hepatitis, Pancreatitis, Dehydration, Diabetes/ DKA, Stress Ulcer, Other (Alcoholic liver cirrhosis) X-Ray, Labs, Meds, VS Vital Signs Date Time Temp Pulse Resp B/P (MAP) Pulse Ox O2 Delivery O2 Flow Rate FiO2 07/23/24 20:50 98.5 106 18 202/115 (144) 98 Lab Test 07/23/24 22:18 Range/Units White Blood Count 15.0 H 4.4-10.8 10^3/uL Red Blood Count 2.97 L 4.5-5.90 10^6/uL Hemoglobin 9.2 L 13.5-17.5 g/dL Hematocrit 27.9 L 41.0-53.0 % Mean Corpuscular Volume 93.9 80.0-100.0 fL Mean Corpuscular Hemoglobin 31.1 28.0-32.0 pg Mean Corpuscular Hemoglobin Concent 33.1 32.0-36.0 g/dL Red Cell Distribution Width 14.3 11.8-14.3 % Platelet Count 168 140-450 10^3/uL Mean Platelet Volume 9.0 6.9-10.8 fL Neutrophils (%) (Auto) 37.0-80.0 % Lymphocytes (%) (Auto) 10.0-50.0 % Monocytes (%) (Auto) 0.0-12.0 % Basophils (%) (Auto) 0.0-2.0 % Neutrophils # (Auto) 1.6-8.6 10 ^3/uL Lymphocytes # (Auto) 0.4-5.4 10 ^3/uL Monocytes # (Auto) 0-1.3 10 ^3/uL Differential Total Cells Counted 100.0 100 Neutrophils % (Manual) 79 37.0-80.0 Band Neutrophils % (Manual) 15 Lymphocytes % (Manual) 3 L 10.0-50.0 Monocytes % (Manual) 3 0-12 Eosinophils % (Manual) 0 0-7 Basophils % (Manual) 0 0.0-2.0 Metamyelocytes % (manual) 0 Myelocytes % (Manual) 0 Promyelocytes % (Manual) 0 Blast Cells % (Manual) 0 Reactive Lymphocytes 0 Platelet Estimate Adequate Sodium Level 145 136-145 mmol/L Potassium Level 5.0 3.5-5.1 mmol/L Chloride Level 113 H 98-107 mmol/L Carbon Dioxide Level 25 20-31 mmol/L Anion Gap 7 5-15 Blood Urea Nitrogen 41 H 9-23 mg/dL Creatinine 2.25 H 0.700-1.30 mg/dL Glomerular Filtration Rate Calc 39 >90 mL/min BUN/Creatinine Ratio 18.2 10.0-20.0 Serum Glucose 313 H 74-106 mg/dL Calcium Level 9.2 8.7-10.4 mg/dL Total Bilirubin 0.6 0.2-1.0 mg/dL Aspartate Amino Transferase (AST) 24 13-40 U/L Alanine Aminotransferase (ALT) 35 7-40 U/L Alkaline Phosphatase 75 46-116 U/L Total Protein 6.4 5.7-8.2 g/dL Albumin 3.7 3.2-4.8 g/dL Current Medications Medications (Trade) Dose Ordered Sig/Jorge Route Start Time Stop Time Status Last Admin Ondansetron HCl (Zofran) 4 mg ONCE ONCE IV 07/23/24 21:45 07/23/24 21:46 DC 07/23/24 22:28 Pantoprazole Sodium (Protonix) 40 mg ONCE ONCE IV 07/23/24 21:45 07/23/24 21:46 DC 07/23/24 22:28 Time of 1ST Reevaluation: 22:41 Reevaluation 1ST: Unchanged Patient Education/Counseling: Diagnosis, Treatment Family Education/Counseling: No Family Present Departure 1 Departure Time of Disposition: 02:08 (Patient presented with abdominal pain that was concerning for possible appendicits, gastritis, cholecystitis, colitis, gastroenteritis, sbo, or orther possible surgical emergency. Data: 1. I ordered and reviewed the result of at least 3 labs including a CBC, BMP, and Urinalysis. 2. I independently interpreted the following tests: CT Abdoment and Pelvis is concerning for urinary tract infection .Risk:This patient has a high risk of morbidity due to further diagnostic testing or treatment and may suffer from an acute abdominal process disorder. Workup reveals concern for volume overload and hypertensive urgency as well as intractable abdominal pain. and patient should be admitted for further workup. and possible expert consultation. ) Impression: Primary Impression: Projectile vomiting without nausea Additional Impressions: Intractable abdominal pain Volume overload Qualified Codes: E87.70 - Fluid overload, unspecified Disposition: ADMITTED INPATIENT Admit to: Med Surg Condition: Serious Critical Care Note Critical Care Time?: Yes (35 min-critical care time only) Stability Stability form required: No Heart Score Heart Score: Heart Score Response (Comments) Value History N/A 0 EKG N/A 0 Age N/A 0 Risk Factors N/A 0 Troponin N/A 0 Total 0 I personally scribed for DANNY TRIPLETT MD ([email or web address]) on 07/23/24 at 22:50. Electronically submitted by Anjum Tristan ([email or web address]). DANNY TRIPLETT MD Jul 23, 2024 22:50
[2024-07-23 22:51] LABS: Band Neutrophils % (manual) 15; Lymphocytes % (manual) 3 (10.0-50.0); Monocytes % (manual) 3 (0-12)
[2024-07-23 22:52] LABS: Platelet Estimate Adequate
[2024-07-24] MEDS: IOHEXOL 300 MG/ML 100ML BOTTLE IJ ONE (01:28)
--- NOTE | 2024-07-24 01:47 | DVH ---
CLINICAL HISTORY: abdomninal pain TECHNIQUE: CT of the abdomen and pelvis was performed with intravenous contrast 100 mL Omnipaque 300. This exam was performed according to our departmental dose optimization program. Up-to-date CT equip ment and radiation dose reduction techniques are utilized as appropriate. CTDIVol: 548.04 mGy DLP: 8.95 mGy-cm WID: COMPARISON: CT CT AB PEL WITH IV CON ONLY on DOS: 02/26/23 FINDINGS: Examination is slightly limited due to repetitive patient motion Lower Thorax: Unremarkable. Liver and Biliary system: Unremarkable. Spleen: Unremarkable. Adrenal Glands and Kidneys: Repetitive patient motion through the kidneys, grossly unremarkable other avery Pancreas and Retroperitoneum: Unremarkable. Aorta and Major Vessels: Unremarkable. Bowel, Mesentery and Peritoneal space: Normal caliber small and large bowel. The appendix is likely n ormal although motion artifact limits evaluation. Moderate fluid distention of the stomach . No free air or loculated fluid collection. Pelvis: Mild bladder wall thickening for the degree of distention. The prostate and seminal vesicles are grossly normal. No grossly enlarged pelvic lymph nodes. Abdominal wall and Osseous Structures: No definite acute fracture or destructive osseous lesion IMPRESSION: 1. Repetitive motion limits study. 2. Mild bladder wall thickening for the degree of distension, nonspecific. Correlate with urinalysis if there is clinical concern for cystitis 3. Otherwise no definite acute abnormality in the abdomen / pelvis.
[2024-07-24] MEDS ORDERED: SODIUM CHLORIDE 0.9% 1,000 ML IV ONE (02:15)
== END 2024-07-24 02:23 | disposition left against medical advice (07) ==
LOC: ER 20:50 → EDBD 20:50 → ER 07-24 02:23
DX: R11.12 Projectile vomiting (principal); R10.13 Epigastric pain; E87.70 Fluid overload, unspecified; I10 Essential (primary) hypertension; E11.9 Type 2 diabetes mellitus without complications; Z79.84 Long term (current) use of oral hypoglycemic drugs; Z79.899 Other long term (current) drug therapy
CPT/HCPCS: 36415; 74177; 80053; 85007; 85027; 96374; 96375; 99285; J2405; J2470; Q9967

== ENCOUNTER 2024-08-12 10:40 | Inpatient (IN) | payer MEDICAID ==
[~2024-08-12] VITALS: Ht 182.9 cm; Wt 79.5 kg
--- NOTE | 2024-08-12 11:23 | ED.PDOC ---
History of Present Illness HPI Comments This is a 29-year-old male who comes in with chief complaint of possible abnormal labs. The patient states that he was admitted to our facility approximately one month ago but left AMA because he was still in the emergency department's. Patient denies any nausea, vomiting or diarrhea. The patient states that he went to see his primary care doctor today and was told to come back to the emergency department's for evaluation. They checked his labs from his previous visit and they are abnormal so he was sent to the emergency department's. At this time he has no symptoms. Chief Complaint: Abnormal LAB's Time Seen by MD: 10:44 Primary Care Provider: JOSELUIS Reviewed Notes: Nurses Notes, Medications, Allergies (No allergies to med ications) Allergies: Coded Allergies: NO KNOWN ALLERGIES (Unverified , 12/01/18) Home Meds Active Scripts Pantoprazole Sodium Sesquihydr (Protonix) 40 Mg Tab, 40 MG PO DAILY for 30 Days, #30 TAB Prov:GIA REIS 04/20/24 Ibuprofen (Ibuprofen) 800 Mg Tab, 1 TAB PO TID PRN, #30 TAB 1 Refill Prov:ODILON MEREDITH 09/10/23 Ondansetron Odt 4MG Tab (ZOFRAN PO) 4 Mg Tb, 4 MG PO Q8HPRN PRN for 3 Days, #9 TAB ODT TAB-DISSOLVE IN MOUTH, THEN SWALLOW Prov:VERNON LAZARO DO 02/26/23 Pantoprazole Sodium Sesquihydr (Protonix) 40 Mg Tab, 40 MG PO DAILY, #30 TAB Prov:VENKATA DE JESUS MD 12/22/18 Ondansetron (Zofran) 4 Mg Tab, 1 TAB PO Q8HR, #20 TAB Prov:VENKATA DE JSEUS MD 12/22/18 Reported Medications Metformin Hydrochloride (Metformin Hcl) 1,000 Mg Tab, 1 TAB PO DAILY, #60 TAB 5 Refills 04/17/24 Insulin Glargine (Lantus) 100 Unit/Ml Inj, 10 UNIT SC PCHS, INJ 12/03/18 Information Source: Patient Mode of Arrival: Ambulatory Severity: Mild Timing: Days Duration: Since onset Prehospital treatment: None Associated signs and symptoms The patient denies any chest pain, nausea or vomiting Past Medical History PAST MEDICAL HISTORY: DM, High Lipids, HTN Past Medical History (Other): Kidney disease Surgical History: Denies all surgeries Family History Family History: Family hx of Cancer Social History Smoker: Quit Greater Than 1 Year Alcohol: Rarely Drugs: Marijuana Lives In: Home Constitutional: denies: chills, diaphoresis, fatigue, fever, malaise, sweats, weakness, others EENTM: denies: blurred vision, double vision, ear bleeding, ear discharge, ear drainage, ear pain, ear ringing, eye pain, eye redness, hearing loss, mouth pain, mouth swelling, nasal discharge, nose bleeding, nose congestion, nose pain, photophobia, tearing, throat pain, throat swelling, voice changes, others Respiratory: denies: cough, hemoptysis, orthopnea, SOB at rest, shortness of breath, SOB with excertion, stridor, wheezing, others Cardiovascular: denies: chest pain, dizzy spells, diaphoresis, Dyspnea on exertion, edema, irregular heart beat, left arm pain, lightheadedness, palpitations, PND, syncope, others Gastrointestinal: denies: abdomen distended, abdominal pain, blood streaked bowels, constipated, diarrhea, dysphagia, difficulty swallowing, hematemesis, melena, nausea, poor appetite, poor fluid intake, rectal bleeding, rectal pain, vomiting, others Genitourinary: denies: burning, dysuria, flank pain, frequency, hematuria, incontinence, penile discharge, penile sore, pain, testicle pain, testicle swelling, urgency, others Neurological: denies: dizziness, fainting, headache, left sided numbness, left sided weakness, numbness, paresthesia, pre-existing deficit, right sided numbness, right sided weakness, seizure, speech problems, tingling, tremors, weakness, others Musculoskeletal: denies: back pain, gout, joint pain, joint swelling, muscle pain, muscle stiffness, neck pain, others Integumetry: denies: bruises, change in color, change in hair/nails, dryness, laceration, lesions, lumps, rash, wounds, others Allergic/Immunocompromised: denies: Difficulty Healing, Frequent Infections, Hives, Itching, others Hematologic/Lymphatic: denies: anemia, blood clots, easy bleeding, easy bruising, swollen glands, others Endocrine: denies: excessive hunger, excessive sweating, excessive thirst, excessive urination, flushing, intolerance to cold, intolerance to heat, unexplained weight gain, unexplained weight loss, others Psychiatric: denies: anxiety, bipolar disorder, depression, hopeless, panic disorder, schizophrenia, sleepless, suicidal, others Physical Exam General Appearance: No Apparent Distress HEENT: Normal ENT Inspection, Pharynx Normal, TMs Normal Neck: Full Range of Motion, Non-Tender, Normal, Normal Inspection Respiratory: Chest Non-Tender, Lungs Clear, No Accessory Muscle Use, No Respiratory Distress, Normal Breath Sounds Cardiovascular: No Edema, No JVD, No Murmur, No Gallop, Normal Peripheral Pulses, Regular Rate/Rhythm Breast Exam: Deferred Gastrointestinal: No Organomegaly, Non Tender, No Pulsatile Mass, Normal Bowel Sounds, Soft Genitalia: Deferred Pelvic: Deferred Rectal: Deferred Extremities: No calf tenderness, Normal capillary refill, Normal inspection, Normal range of motion, Non-tender, No pedal edema Musculoskeletal : Apperance: Normal Neurologic: Alert, leather roller II-XII nml as Tested, No Motor Deficits, Normal Affect, Normal Mood, No Sensory Deficits Cerebellar Function: Normal Reflexes: Normal Skin: Dry, Normal Color, Warm Lymphatic: No Adenopathy Was a procedure done? Was a procedure done?: No Differential Dx Considerations may include: Electrolyte imbalance, dehydration, kidney failure, hyperglycemia X-Ray, Labs, Meds, VS Vital Signs Date Time Temp Pulse Resp B/P (MAP) Pulse Ox O2 Delivery O2 Flow Rate FiO2 08/12/24 11:01 98.5 92 18 138/87 (104) 100 Lab Test 08/12/24 11:09 Range/Units White Blood Count 5.2 4.4-10.8 10^3/uL Red Blood Count 2.95 L 4.5-5.90 10^6/uL Hemoglobin 9.2 L 13.5-17.5 g/dL Hematocrit 27.5 L 41.0-53.0 % Mean Corpuscular Volume 93.5 80.0-100.0 fL Mean Corpuscular Hemoglobin 31.2 28.0-32.0 pg Mean Corpuscular Hemoglobin Concent 33.4 32.0-36.0 g/dL Red Cell Distribution Width 13.8 11.8-14.3 % Platelet Count 201 140-450 10^3/uL Mean Platelet Volume 8.6 6.9-10.8 fL Neutrophils (%) (Auto) 61.7 37.0-80.0 % Lymphocytes (%) (Auto) 26.4 10.0-50.0 % Monocytes (%) (Auto) 6.6 0.0-12.0 % Eosinophils (%) (Auto) 4.6 0.0-7.0 % Basophils (%) (Auto) 0.7 0.0-2.0 % Neutrophils # (Auto) 3.2 1.6-8.6 10 ^3/uL Lymphocytes # (Auto) 1.4 0.4-5.4 10 ^3/uL Monocytes # (Auto) 0.3 0-1.3 10 ^3/uL Eosinophils # (Auto) 0.2 0-0.8 10 ^3/uL Basophils # (Auto) 0 0-0.2 10 ^3/uL Nucleated Red Blood Cells 0.0 % Sodium Level 143 136-145 mmol/L Potassium Level 5.5 H 3.5-5.1 mmol/L Chloride Level 110 H 98-107 mmol/L Carbon Dioxide Level 28 20-31 mmol/L Anion Gap 5 5-15 Blood Urea Nitrogen 41 H 9-23 mg/dL Creatinine 2.12 H 0.700-1.30 mg/dL Glomerular Filtration Rate Calc 42 >90 mL/min BUN/Creatinine Ratio 19.3 10.0-20.0 Serum Glucose 110 H 74-106 mg/dL Calcium Level 9.3 8.7-10.4 mg/dL IV Hep-Lock is being established The CBC shows anemia with a hemoglobin of 9.2 and hematocrit of 27.5 The BUN is 41 and the creatinine is 2.12 The patient has an elevated potassium of 5.5 indicating hypokalemia for most likely acute renal failure The patient was being admitted to the hospitalist A nephrology consult will be obtained The patient was admitted Time of 1ST Reevaluation: 11:23 Reevaluation 1ST: Unchanged Patient Education/Counseling: Diagnosis, Treatment, Prognosis Family Education/Counseling: No Family Present Departure 1 Departure Time of Disposition: 12:09 Impression: Primary Impression: Acute renal failure Qualified Codes: N17.1 - Acute kidney failure with acute cortical necrosis Additional Impression: Hyperkalemia Disposition: 09 ADMITTED INPATIENT Admit to: [facility] Condition: Fair Critical Care Note Critical Care Time?: Yes (35 min-critical care time only) Stability Stability form required: Yes Unstable for transfer: Telemetry monitoring (Telemetry monitoring required), ED Physician Assesment (Clinical assesment) Heart Score Heart Score: Heart Score Response (Comments) Value History N/A 0 EKG N/A 0 Age N/A 0 Risk Factors N/A 0 Troponin N/A 0 Total 0 CLEO PAT MD Aug 12, 2024 11:23
[2024-08-12 11:33] LABS: Basophils # (auto) 0 10 ^3/uL (0-0.2); Basophils % (auto) 0.7 % (0.0-2.0); Eosinophils # (auto) 0.2 10 ^3/uL (0-0.8); Eosinophils % (auto) 4.6 % (0.0-7.0); Hematocrit 27.5 % (41.0-53.0); Hemoglobin 9.2 g/dL (13.5-17.5); Lymphocytes # (auto) 1.4 10 ^3/uL (0.4-5.4); Lymphocytes % (auto) 26.4 % (10.0-50.0); Mean Corpuscular Hemoglobin 31.2 pg (28.0-32.0); Mean Corpuscular Hgb Conc. 33.4 g/dL (32.0-36.0); Mean Corpuscular Volume 93.5 fL (80.0-100.0); Monocytes # (auto) 0.3 10 ^3/uL (0-1.3); Monocytes % (auto) 6.6 % (0.0-12.0); Neutrophils # (auto) 3.2 10 ^3/uL (1.6-8.6); Neutrophils % (auto) 61.7 % (37.0-80.0); Platelet Count (auto) 201 10^3/uL (140-450); Red Blood Cells 2.95 10^6/uL (4.5-5.90); Red Cell Distribution Width 13.8 % (11.8-14.3); White Blood Cell 5.2 10^3/uL (4.4-10.8)
[2024-08-12 11:44] LABS: Sodium 143 mmol/L (136-145)
[2024-08-12 11:45] LABS: Anion Gap 5 (5-15); Carbon Dioxide 28 mmol/L (20-31)
[2024-08-12 11:46] LABS: Calcium 9.3 mg/dL (8.7-10.4)
[2024-08-12 11:50] LABS: BUN/Creatinine Ratio 19.3 (10.0-20.0)
[2024-08-12 11:51] LABS: Blood Urea Nitrogen 41 mg/dL (9-23); Chloride 110 mmol/L (98-107); Glucose 110 mg/dL (74-106); Potassium 5.5 mmol/L (3.5-5.1)
[2024-08-12] MEDS: SODIUM BICARB 8.4% 50Meq/50ml SYR Vial IV ONE (14:27)
[2024-08-12] MEDS: CALCIUM GLUC 1,000mg/50ml-NS 50 ML IV ONE (14:27)
[2024-08-12 14:39] LABS: Urine Bacteria None Seen /hpf (None Seen)
[2024-08-12 14:48] LABS: Urine Amorphous Crystal FEW /hpf (None Seen); Urine Blood 1+ /uL (Negative); Urine Clarity Clear (Clear); Urine Color Light-Yellow (Yellow); Urine Protein, UAD 3+ (Negative); Urine Specific Gravity 1.015 (1.001-1.035); Urine Squamous Epithelial Cell None Seen /hpf (<5); Urine Urobilinogen Normal (Negative); Urine WBC 1 /HPF (0-3)
--- NOTE | 2024-08-12 23:42 | DVHHPRES ---
History of Present Illness Resident Creating Document: MIKE DAMON RESDIENT History of Present Illness This is a 29-year-old male with past medical history of diabetes, hypertension, dyslipidemia, anemia and CKD was referred to the hospital from the office. Per patient, the patient was checked by the PCP and abnormal labs finding refer to the hospital. Lab studies were significant for the Hb decreased at 9.2, potassium 5.5, and creatinine 2.12. Patient also reports headache. She has patient denies fever, shortness of breath, cough, chest pain, abdominal pain, or any recent bowel and bladder habit changes. PMHx: diabetes, hypertension, dyslipidemia, anemia and CKD Social history: Smokes weeds, denies smoking cigarettes or any other drug use Home medication: Lisinopril, Lantus, and iron pills Allergic history: No known allergy Review of Systems Review of Systems General: patient denies fever, fatigue, weaknes, sweating, any recent changes in appetite and weight HEENT: No headaches, visiual changes, hearing loss, tinnitus, nasal congestion and discharge, and sore throat. Cardiovascular: Denies chest pain, palpitations, dyspnea on exertion, orthopnea, or claudication. Respiratory: No cough, and wheezing. Gastrointestinal: Denies nausea, vomiting, dysphagia, odynophagia, heartburn, abdominal pain, flatulence, bloating, diarrhea, constipation, change in stool, or blood in stool. Genitourinary: No dysuria, hematuria, discharge, frequency, urgency, nocturia, incontinence, and urinary retention. Endocrine: No heat or cold intolerance, polydipsia, polyuria, and polyphagia. Neurological: No dizziness, extremity weakness and numbness, tremors, gait disturbance, seizures, and memory impairment. Psychiatric: Denies depression, anxiety,or insomnia. Musculoskeletal: Denies neck pain, stiffness and swelling, back pain, muscle weakness, joint pain, stiffness, swelling, or limited range of motion. Skin: No rashes, itching, skin lesion, changes in hair, nail, skin texture and breast. Hematologic/Lymphatic: Denies easy bruising, bleeding tendencies, or lymph node enlargement. Allergies: Coded Allergies: NO KNOWN ALLERGIES (Unverified , 12/01/18) Exam Vital Signs Vital Signs Date Time Temp Pulse Resp B/P (MAP) Pulse Ox O2 Delivery O2 Flow Rate FiO2 08/12/24 20:06 85 16 136/75 (95) 100 08/12/24 14:09 98.4 98.4 08/12/24 13:55 Room Air* 0 21 Exam General Appearance: Alert, Oriented X3, Cooperative, No acute distress HEENT: Atraumatic, PERRLA, EOMI, Mucous membrane moist/pink Respiratory: Clear to auscultation, Normal air movement Cardiovascular: Regular rate, Normal S1, Normal S2, No murmurs, no chest wall tenderness Abdominal: Normal bowel sounds, Soft, No tenderness, No hepatospenomegaly, No masses Extremities: No clubbing, No cyanosis, No edema, Normal pulses, No tenderness/swelling Skin: No rashes, No breakdown, No significant lesion Neuro: Normal gait, Normal speech, Strength at 5/5 X4 ext, Normal tone, Sensation intact, Cranial nerves 3-12 NL, Reflexes 2+ Psych/Mental Status: Mental status NL, Mood NL Labs/Xrays Labs Test 08/12/24 14:39 08/12/24 11:09 Range/Units Urine Color Light-yellow Yellow Urine Clarity Clear Clear Urine pH 6.0 5.0-9.[address] 1.015 1.001-1.035 Urine Protein 3+ H Negative Urine Ketones Negative Negative Urine Blood 1+ H Negative /uL Urine Nitrite Negative Negative Urine Bilirubin Negative Negative Urine Urobilinogen Normal Negative mg/dL Urine Leukocyte Esterase Negative Negative /uL Urine RBC 3 0 - 3 /hpf Urine Microscopic WBC 1 0-3 /HPF Urine Squamous Epithelial Cells None seen <5 /hpf Urine Amorphous Crystals Few None Seen /hpf Urine Bacteria None seen None Seen /hpf Urine Glucose 1+ H Normal mg/dL White Blood Count 5.2 4.4-10.8 10^3/uL Red Blood Count 2.95 L 4.5-5.90 10^6/uL Hemoglobin 9.2 L 13.5-17.5 g/dL Hematocrit 27.5 L 41.0-53.0 % Mean Corpuscular Volume 93.5 80.0-100.0 fL Mean Corpuscular Hemoglobin 31.2 28.0-32.0 pg Mean Corpuscular Hemoglobin Concent 33.4 32.0-36.0 g/dL Red Cell Distribution Width 13.8 11.8-14.3 % Platelet Count 201 140-450 10^3/uL Mean Platelet Volume 8.6 6.9-10.8 fL Neutrophils (%) (Auto) 61.7 37.0-80.0 % Lymphocytes (%) (Auto) 26.4 10.0-50.0 % Monocytes (%) (Auto) 6.6 0.0-12.0 % Eosinophils (%) (Auto) 4.6 0.0-7.0 % Basophils (%) (Auto) 0.7 0.0-2.0 % Neutrophils # (Auto) 3.2 1.6-8.6 10 ^3/uL Lymphocytes # (Auto) 1.4 0.4-5.4 10 ^3/uL Monocytes # (Auto) 0.3 0-1.3 10 ^3/uL Eosinophils # (Auto) 0.2 0-0.8 10 ^3/uL Basophils # (Auto) 0 0-0.2 10 ^3/uL Nucleated Red Blood Cells 0.0 % Sodium Level 143 136-145 mmol/L Potassium Level 5.5 H 3.5-5.1 mmol/L Chloride Level 110 H 98-107 mmol/L Carbon Dioxide Level 28 20-31 mmol/L Anion Gap 5 5-15 Blood Urea Nitrogen 41 H 9-23 mg/dL Creatinine 2.12 H 0.700-1.30 mg/dL Glomerular Filtration Rate Calc 42 >90 mL/min BUN/Creatinine Ratio 19.3 10.0-20.0 Serum Glucose 110 H 74-106 mg/dL Calcium Level 9.3 8.7-10.4 mg/dL Assessment/Plan Assessment/Plan Hydronephrosis CKD grade 3B Ultrasound shows mild right hydronephrosis within large kidneys Hyperkalemia Calcium gluconate Insulin IV normal saline Prediabetic Hb A1c is 6.0 Moderate anemia, normocytic normochromic Check iron panel History of hypertension History of dyslipidemia DIET: Renal CODE STATUS: Full code DISPOSITION: Med/surge Patient's status and paln discussed with the patient. Case discussed with Dr. Fulton Plan discussed with: Patient, Other (RN) Date of Service: Aug 13, 2024 Billing Provider: REBEKA FULTON MD Common Visit Codes: 10235-IFQBCBI INP/OBS CARE (HIGH) [facility]IAMANAVJUAN [facility] Aug 12, 2024 23:42 REBEKA FULTON MD Aug 15, 2024 15:48
[2024-08-13] VITALS (9 sets, daily range): BP systolic 118–159; BP diastolic 70–103; PULSE 70–94; RESP 14–20; TEMP 97.9–98.3; O2SAT 96–100
[2024-08-13] MEDS ORDERED: DEXTROSE (50%) 50ML SYRG IV PRN (01:30)
[2024-08-13 02:28] LABS: % Iron Saturation 19.8 % (20-55)
[2024-08-13] MEDS: ASPirin 81 mg TAB PO ONE (02:30)
--- NOTE | 2024-08-13 03:02 | DVH ---
INDICATION: MESHA TECHNIQUE: Multiple real-time sonographic images of the kidneys and bladder were obtained. COMPARISON: None FINDINGS: The right kidney measures 13.5 cm in length. The right renal echogenicity, contour and cortical thick ness are within normal limits. Mild hydronephrosis is noted. No large masses/calculi are seen. The left kidney measures 14.4 cm in length. The left renal echogenicity, contour, and cortical thickn ess are within normal limits. No hydronephrosis or large masses/calculi are seen. The urinary bladder is contracted, limiting assessment. IMPRESSION: 1. Enlarged kidneys. 2. Mild right hydronephrosis. 3. Urinary bladder contracted, limiting assessment.
--- NOTE | 2024-08-13 04:48 | DVH ---
Exam: CT CT AB PEL WO CON-NO ORAL OR IV History: Hydronbephrosis, kidney stone Comparison Study: CT scan of the abdomen pelvis performed on 07/24/2024; ultrasound of the kidneys an d urinary bladder performed same date. Technique: Multidetector spiral CT of the abdomen and pelvis was performed from lung bases to pubic s ymphysis. Imaging was performed without intravenous contrast. Coronal and sagittal multiplanar refor mats were obtained from the axial data set by the technologist. Radiation Dose : 1. Abdomen/Pelvis: CTDIvol 7.0 mGy, DLP 438 mGy*cm. Findings: Evaluation of vasculature and solid organs is limited due to lack of intravenous contrast use. Lung Bases: Lung bases are clear. Visualized portions of the heart and pericardium are unremarkable. Liver: The liver is normal in size. No focal lesions. Gallbladder and Biliary Tree: The gallbladder is unremarkable. No intrahepatic or extrahepatic bilia ry ductal dilatation. Spleen: Unremarkable Pancreas: The pancreas is grossly unremarkable. Adrenal Glands: Unremarkable Kidneys: Non rotated kidneys. No intrarenal calculi. Minimal right hydronephrosis. No significant le ft hydronephrosis. GI tract: The stomach is grossly normal in appearance. No evidence of small bowel wall thickening or abnormal dilatation to suggest bowel obstruction. The colon is unremarkable. The appendix is visual ized and is normal. Peritoneum/mesentery/retroperitoneum. No evidence of free intraperitoneal air. No ascites. No evidenc e of suspicious lymphadenopathy. Abdominal Wall: Unremarkable. Vasculature: The visualized abdominal aorta is normal in size and caliber. Evaluation of abdominal a nd pelvic vessels is limited due to lack of intravenous contrast. Urinary Bladder: Grossly unremarkable for degree of distention. Pelvic Organs: Unremarkable Musculoskeletal: No aggressive focal bony lesions, acute fractures or dislocation. IMPRESSION: 1. Minimal right hydronephrosis. No obstructing stone. Non rotated kidneys.
[2024-08-13] MEDS: ACCU-CHEK COMFORT CURVE STRIP VI SCH (06:39)
[2024-08-13] MEDS ORDERED: InsuLIN REG 1unit/0.01ml Soln (100units/ml) SC SCH (07:00)
[2024-08-13] MEDS: amLODIPine BESYLATE 5 MG TAB PO ONE ×2 (07:14→16:46)
[2024-08-13 07:39] LABS: Basophils # (auto) 0 10 ^3/uL (0-0.2); Eosinophils # (auto) 0.3 10 ^3/uL (0-0.8); Eosinophils % (auto) 6.1 % (0.0-7.0); Hematocrit 27.3 % (41.0-53.0); Hemoglobin 9.3 g/dL (13.5-17.5); Lymphocytes # (auto) 1.6 10 ^3/uL (0.4-5.4); Lymphocytes % (auto) 36.3 % (10.0-50.0); Mean Corpuscular Hemoglobin 31.9 pg (28.0-32.0); Mean Corpuscular Hgb Conc. 34.1 g/dL (32.0-36.0); Mean Corpuscular Volume 93.4 fL (80.0-100.0); Monocytes # (auto) 0.4 10 ^3/uL (0-1.3); Monocytes % (auto) 8.6 % (0.0-12.0); Neutrophils # (auto) 2.1 10 ^3/uL (1.6-8.6); Platelet Count (auto) 204 10^3/uL (140-450); Red Blood Cells 2.92 10^6/uL (4.5-5.90); Red Cell Distribution Width 14.1 % (11.8-14.3); White Blood Cell 4.3 10^3/uL (4.4-10.8)
[2024-08-13 07:49] LABS: Alanine Aminotransferase 16 U/L (7-40); Albumin 3.9 g/dL (3.2-4.8); Alkaline Phosphatase 70 U/L (46-116); Anion Gap 4 (5-15); BUN/Creatinine Ratio 15.8 (10.0-20.0); Calcium 9.1 mg/dL (8.7-10.4); Carbon Dioxide 29 mmol/L (20-31); Sodium 144 mmol/L (136-145)
[2024-08-13 07:50] LABS: Total Protein 6.5 g/dL (5.7-8.2)
[2024-08-13 07:55] LABS: Aspartate Aminotransferase 12 U/L (13-40); Bilirubin, Total 0.3 mg/dL (0.2-1.0); Blood Urea Nitrogen 38 mg/dL (9-23); Chloride 111 mmol/L (98-107); Glucose 117 mg/dL (74-106)
[2024-08-13] MEDS: ASPirin 81 mg TAB PO SCH (09:59)
[2024-08-13] MEDS ORDERED: SODIUM CHLORIDE 0.9% 500 ML IV ONE (12:15)
[2024-08-13] MEDS ORDERED: SODIUM CHLORIDE 0.9% 1,000 ML IV SCH (12:15)
--- NOTE | 2024-08-13 12:36 | DVHINCON2 ---
Date of service: Aug 13, 2024 Reason for Consultation MESHA History of Present Illness 29 years old male with past medical history of diabetes for the past 14 years, hypertension, dyslipidemia, Chronic kidney disease IIIb, presented with chief complaints of abnormal labs his PCP asked him to come to hospital after noticing abnormal labs or his potassium was 5.5 and creatinine 2.1 on admission patient does complain of vision changes with some dark black spots,, denies any urinary complaints he is also found to be anemic Past Medical History As documented in HPI Allergies: Coded Allergies: NO KNOWN ALLERGIES (Unverified , 12/01/18) Home Meds Active Scripts Pantoprazole Sodium Sesquihydr (Protonix) 40 Mg Tab, 40 MG PO DAILY for 30 Days, #30 TAB Prov:GIA REIS RESIDENT 04/20/24 Ondansetron Odt 4MG Tab (ZOFRAN PO) 4 Mg Tb, 4 MG PO Q8HPRN PRN for 3 Days, #9 TAB ODT TAB-DISSOLVE IN MOUTH, THEN SWALLOW Prov:VERNON LAZARO DO 02/26/23 Reported Medications Metformin Hydrochloride (Metformin Hcl) 1,000 Mg Tab, 1 TAB PO DAILY, #60 TAB 5 Refills 04/17/24 Insulin Glargine (Lantus) 100 Unit/Ml Inj, 10 UNIT SC PCHS, INJ 12/03/18 Current Medications Current Medications Medications (Trade) Dose Ordered Sig/Jorge Route PRN Reason Start Time Stop Time Status Last Admin Diagnostic Test (Pha) (Accu-Chek Comfort Curve T) 1 strip ACHS 08/13/24 07:00 08/13/24 11:28 Insulin Human Regular (InsuLIN R) ACHS SC 08/13/24 07:00 08/13/24 03:35 DC Dextrose 50 ml UD PRN IV Blood Sugar LESS THAN 60 08/13/24 01:30 Aspirin 81 mg DAILY PO 08/13/24 10:00 08/13/24 09:59 Amlodipine Besylate (Norvasc Tablet) 5 mg DAILY PO 08/14/24 10:00 Sodium Chloride 1,000 ml @ 75 mls/hr [id number] IV 08/13/24 12:15 Family History: Patient reports no known family medical history. Social History Smokes weed, denies any drugs or alcohol or smoking cigarettes Review of Systems HEENT-denies headache, positive vision changes, no hearing issue, denies neck complaints, denies throat issues Respiratory system-denies cough, denies shortness of breath Cardiovascular system-denies chest pain, denies palpitations Abdomen-denies abdominal pain, denies nausea, denies vomiting, denies constipation or diarrhea Musculoskeletal-denies swelling in the legs, denies pain in the extremities Genitourinary-denies urinary symptoms like dysuria, stream issues Neuro-denies dizziness, denies seizures Psychiatric-denies psychiatric history H&P Exam Vital Signs/I&O Vital Sign Date Time Temp Pulse Resp B/P (MAP) Pulse Ox O2 Delivery O2 Flow Rate FiO2 08/13/24 12:18 97.9 89 16 150/101 (117) 97 97.9 08/13/24 02:25 Room Air 08/12/24 13:55 0 21 Physical Exam General-not in any distress HEENT-normocephalic, no icterus, no pallor, neck supple Respiratory-fair air entry bilateral, no rhonchi, no wheeze [id number] heard, no murmurs appreciated Abdominal-soft, nontender, nondistended Musculoskeletal-no pedal edema, no calf tenderness Genitourinary-deferred Neuro-awake alert oriented x3, Psychiatric-not agitated, cooperative, Labs/Diagnostic Data Labs/Diagnostic Data Laboratory Tests Test 08/13/24 11:20 08/13/24 07:20 08/13/24 01:58 08/12/24 14:39 Range/Units POC Glucose 172 H 70-106 mg/dl White Blood Count 4.3 L 4.4-10.8 10^3/uL Red Blood Count 2.92 L 4.5-5.90 10^6/uL Hemoglobin 9.3 L 13.5-17.5 g/dL Hematocrit 27.3 L 41.0-53.0 % Mean Corpuscular Volume 93.4 80.0-100.0 fL Mean Corpuscular Hemoglobin 31.9 28.0-32.0 pg Mean Corpuscular Hemoglobin Concent 34.1 32.0-36.0 g/dL Red Cell Distribution Width 14.1 11.8-14.3 % Platelet Count 204 140-450 10^3/uL Mean Platelet Volume 8.6 6.9-10.8 fL Neutrophils (%) (Auto) 48.0 37.0-80.0 % Lymphocytes (%) (Auto) 36.3 10.0-50.0 % Monocytes (%) (Auto) 8.6 0.0-12.0 % Eosinophils (%) (Auto) 6.1 0.0-7.0 % Basophils (%) (Auto) 1.0 0.0-2.0 % Neutrophils # (Auto) 2.1 1.6-8.6 10 ^3/uL Lymphocytes # (Auto) 1.6 0.4-5.4 10 ^3/uL Monocytes # (Auto) 0.4 0-1.3 10 ^3/uL Eosinophils # (Auto) 0.3 0-0.8 10 ^3/uL Basophils # (Auto) 0 0-0.2 10 ^3/uL Nucleated Red Blood Cells 0.0 % Sodium Level 144 136-145 mmol/L Potassium Level 5.0 5.0 3.5-5.1 mmol/L Chloride Level 111 H 98-107 mmol/L Carbon Dioxide Level 29 20-31 mmol/L Anion Gap 4 L 5-15 Blood Urea Nitrogen 38 H 9-23 mg/dL Creatinine 2.41 H 0.700-1.30 mg/dL Glomerular Filtration Rate Calc 36 >90 mL/min BUN/Creatinine Ratio 15.8 10.0-20.0 Serum Glucose 117 H 74-106 mg/dL Calcium Level 9.1 8.7-10.4 mg/dL Total Bilirubin 0.3 0.2-1.0 mg/dL Aspartate Amino Transferase (AST) 12 L 13-40 U/L Alanine Aminotransferase (ALT) 16 7-40 U/L Alkaline Phosphatase 70 46-116 U/L Total Protein 6.5 5.7-8.2 g/dL Albumin 3.9 3.2-4.8 g/dL Hemoglobin A1c 6.0 H <5.7 % A1C Iron Level 55 L 65-175 ug/dL Total Iron Binding Capacity 278 250-425 ug/dL Percent Iron Saturation 19.8 L 20-55 % Ferritin 75.7 22-322 ng/mL Urine Color Light-yellow Yellow Urine Clarity Clear Clear Urine pH 6.0 5.0-9.0 Urine Specific [place] 1.015 1.001-1.035 Urine Protein 3+ H Negative Urine Ketones Negative Negative Urine Blood 1+ H Negative /uL Urine Nitrite Negative Negative Urine Bilirubin Negative Negative Urine Urobilinogen Normal Negative mg/dL Urine Leukocyte Esterase Negative Negative /uL Urine RBC 3 0 - 3 /hpf Urine Microscopic WBC 1 0-3 /HPF Urine Squamous Epithelial Cells None seen <5 /hpf Urine Amorphous Crystals Few None Seen /hpf Urine Bacteria None seen None Seen /hpf Urine Glucose 1+ H Normal mg/dL Test 08/12/24 11:09 Range/Units White Blood Count 5.2 4.4-10.8 10^3/uL Red Blood Count 2.95 L 4.5-5.90 10^6/uL Hemoglobin 9.2 L 13.5-17.5 g/dL Hematocrit 27.5 L 41.0-53.0 % Mean Corpuscular Volume 93.5 80.0-100.0 fL Mean Corpuscular Hemoglobin 31.2 28.0-32.0 pg Mean Corpuscular Hemoglobin Concent 33.4 32.0-36.0 g/dL Red Cell Distribution Width 13.8 11.8-14.3 % Platelet Count 201 140-450 10^3/uL Mean Platelet Volume 8.6 6.9-10.8 fL Neutrophils (%) (Auto) 61.7 37.0-80.0 % Lymphocytes (%) (Auto) 26.4 10.0-50.0 % Monocytes (%) (Auto) 6.6 0.0-12.0 % Eosinophils (%) (Auto) 4.6 0.0-7.0 % Basophils (%) (Auto) 0.7 0.0-2.0 % Neutrophils # (Auto) 3.2 1.6-8.6 10 ^3/uL Lymphocytes # (Auto) 1.4 0.4-5.4 10 ^3/uL Monocytes # (Auto) 0.3 0-1.3 10 ^3/uL Eosinophils # (Auto) 0.2 0-0.8 10 ^3/uL Basophils # (Auto) 0 0-0.2 10 ^3/uL Nucleated Red Blood Cells 0.0 % Sodium Level 143 136-145 mmol/L Potassium Level 5.5 H 3.5-5.1 mmol/L Chloride Level 110 H 98-107 mmol/L Carbon Dioxide Level 28 20-31 mmol/L Anion Gap 5 5-15 Blood Urea Nitrogen 41 H 9-23 mg/dL Creatinine 2.12 H 0.700-1.30 mg/dL Glomerular Filtration Rate Calc 42 >90 mL/min BUN/Creatinine Ratio 19.3 10.0-20.0 Serum Glucose 110 H 74-106 mg/dL Calcium Level 9.3 8.7-10.4 mg/dL Assessment Acute kidney injury on Chronic kidney disease IIIb hemodynamic mediated etiology Hyperkalemia likely secondary to lisinopril Diabetes for 14 years likely underlying diabetic nephropathy Hypertension Mild right hydronephrosis on ultrasound Recommendations Large kidneys on kidney ultrasound could be from underlying diabetic nephropathy For hydronephrosis mild recommend urology evaluation as outpatient Low-potassium diet Potassium better since admission Hold metformin,lisinopril for now---can resume lisinopril once renal function plateaus Plan discussed with: Patient SHELLY DRISCOLL MD Aug 13, 2024 12:36
[2024-08-13] MEDS ORDERED: AMLO1TAB22 PO (13:19)
[2024-08-13] MEDS ORDERED: FERR-7 PO (13:19)
--- NOTE | 2024-08-13 13:47 | DVHDSRES ---
Discharge Summary Date of Admission Resident Creating Document: MIEK DAMON RESDIENT Aug 12, 2024 at 23:41 Date of Discharge: Aug 13, 2024 Admitting Diagnosis Acute anemia associated with hyperkalemia Wounds: No wounds present at this time. Labs/Diagnostic Data: Laboratory Results Test 08/13/24 11:20 08/13/24 07:20 08/13/24 01:58 08/12/24 14:39 POC Glucose 172 mg/dl (70-106) White Blood Count 4.3 10^3/uL (4.4-10.8) Red Blood Count 2.92 10^6/uL (4.5-5.90) Hemoglobin 9.3 g/dL (13.5-17.5) Hematocrit 27.3 % (41.0-53.0) Mean Corpuscular Volume 93.4 fL (80.0-100.0) Mean Corpuscular Hemoglobin 31.9 pg (28.0-32.0) Mean Corpuscular Hemoglobin Concent 34.1 g/dL (32.0-36.0) Red Cell Distribution Width 14.1 % (11.8-14.3) Platelet Count 204 10^3/uL (140-450) Mean Platelet Volume 8.6 fL (6.9-10.8) Neutrophils (%) (Auto) 48.0 % (37.0-80.0) Lymphocytes (%) (Auto) 36.3 % (10.0-50.0) Monocytes (%) (Auto) 8.6 % (0.0-12.0) Eosinophils (%) (Auto) 6.1 % (0.0-7.0) Basophils (%) (Auto) 1.0 % (0.0-2.0) Neutrophils # (Auto) 2.1 10 ^3/uL (1.6-8.6) Lymphocytes # (Auto) 1.6 10 ^3/uL (0.4-5.4) Monocytes # (Auto) 0.4 10 ^3/uL (0-1.3) Eosinophils # (Auto) 0.3 10 ^3/uL (0-0.8) Basophils # (Auto) 0 10 ^3/uL (0-0.2) Nucleated Red Blood Cells 0.0 % Sodium Level 144 mmol/L (136-145) Potassium Level 5.0 mmol/L (3.5-5.1) Chloride Level 111 mmol/L (98-107) Carbon Dioxide Level 29 mmol/L (20-31) Anion Gap 4 (5-15) Blood Urea Nitrogen 38 mg/dL (9-23) Creatinine 2.41 mg/dL (0.700-1.30) Glomerular Filtration Rate Calc 36 mL/min (>90) BUN/Creatinine Ratio 15.8 (10.0-20.0) Serum Glucose 117 mg/dL (74-106) Calcium Level 9.1 mg/dL (8.7-10.4) Total Bilirubin 0.3 mg/dL (0.2-1.0) Aspartate Amino Transferase (AST) 12 U/L (13-40) Alanine Aminotransferase (ALT) 16 U/L (7-40) Alkaline Phosphatase 70 U/L (46-116) Total Protein 6.5 g/dL (5.7-8.2) Albumin 3.9 g/dL (3.2-4.8) Hemoglobin A1c 6.0 % A1C (<5.7) Iron Level 55 ug/dL (65-175) Total Iron Binding Capacity 278 ug/dL (250-425) Percent Iron Saturation 19.8 % (20-55) Ferritin 75.7 ng/mL (22-322) Urine Color Light-yellow (Yellow) Urine Clarity Clear (Clear) Urine pH 6.0 (5.0-9.0) Urine Specific [place] 1.015 (1.001-1.035) Urine Protein 3+ (Negative) Urine Ketones Negative (Negative) Urine Blood 1+ /uL (Negative) Urine Nitrite Negative (Negative) Urine Bilirubin Negative (Negative) Urine Urobilinogen Normal mg/dL (Negative) Urine Leukocyte Esterase Negative /uL (Negative) Urine RBC 3 /hpf (0 - 3) Urine Microscopic WBC 1 /HPF (0-3) Urine Squamous Epithelial Cells None seen /hpf (<5) Urine Amorphous Crystals Few /hpf (None Seen) Urine Bacteria None seen /hpf (None Seen) Urine Glucose 1+ mg/dL (Normal) Other Laboratory Tests 08/13/24 07:20 Brief Hx & Hospital Course: Hospitalization course: This is a 29-year-old male with past medical history of diabetes, hypertension, dyslipidemia, anemia and CKD was referred to the hospital from the office. Per patient, the patient was checked by his PCP and due to abnormal labs the patient was referred to the hospital. Initial labs showed marked normocytic normochromic anemia with an hemoglobin of 9.3, potassium was initially 5.5, BUN was 38 and creatinine 2.41 consistent with MESHA on CKD stage IIIB. The patient reported that several days ago had several episodes of vomiting and apparently he is lightly lacerated the throat with the fingers while he was trying to vomit. The patient denied any blood in the stools, hematemesis, or any other bleeding from any part of the body. Apparently the patient has been anemic consistently but had a sudden drop of hemoglobin. Upon my examination, the patient denied fever/chills, chest pain, shortness of breath, abdominal pain or any other symptoms. Bilateral costovertebral angle tenderness was negative and the patient denied dysuria or any other symptoms at this time. We discontinued lisinopril and administered Hyperkalemia protocol to normalize potassium. The patient was started on amlodipine 5 mg daily and blood pressure was well controlled overall. We also provided IV fluids for the MESHA. The patient stated that he is feeling well overall. We will discharge the patient home on amlodipine 5 mg daily. We explained to the patient that needs to follow up closely with his PCP to titrate up the medication if needed. Nephrology saw patient as well and recommended urology evaluation as an outpatient for mild right hydronephrosis which is asymptomatic at this time. In the urinalysis we appreciated 3+ protein and slight blood, patient might need further workup for nephrotic/nephritic syndrome or possible kidney biopsy as an outpatient due to severe kidney failure in a very young age. We will also continue iron tablets 325 mg daily for his anemia. Patient agrees and understands the plan. Admitting diagnosis: Acute anemia with hyperkalemia Discharge plan: Stop lisinopril due to hyperkalemia Start amlodipine 10 mg q.d. and follow-up with his PCP Follow-up as an outpatient with Nephrology to evaluate the possibility of nephrotic/nephritic syndrome and possible biopsy as outpatient. Follow-up with his PCP in one week Continue iron tablets Consults/Reason for consult N/A Operations or Procedures INDICATION: MESHA TECHNIQUE: Multiple real-time sonographic images of the kidneys and bladder were obtained. COMPARISON: None FINDINGS: The right kidney measures 13.5 cm in length. The right renal echogenicity, contour and cortical thickness are within normal limits. Mild hydronephrosis is noted. No large masses/calculi are seen. The left kidney measures 14.4 cm in length. The left renal echogenicity, contour, and cortical thickness are within normal limits. No hydronephrosis or large masses/calculi are seen. The urinary bladder is contracted, limiting assessment. IMPRESSION: 1. Enlarged kidneys. 2. Mild right hydronephrosis. 3. Urinary bladder contracted, limiting assessment. Exam: CT CT AB PEL WO CON-NO ORAL OR IV History: Hydronbephrosis, kidney stone Comparison Study: CT scan of the abdomen pelvis performed on 07/24/2024; ultrasound of the kidneys and urinary bladder performed same date. Technique: Multidetector spiral CT of the abdomen and pelvis was performed from lung bases to pubic symphysis. Imaging was performed without intravenous contrast. Coronal and sagittal multiplanar reformats were obtained from the axial data set by the technologist. Radiation Dose : 1. Abdomen/Pelvis: CTDIvol 7.0 mGy, DLP 438 mGy*cm. Findings: Evaluation of vasculature and solid organs is limited due to lack of intravenous contrast use. Lung Bases: Lung bases are clear. Visualized portions of the heart and pericardium are unremarkable. Liver: The liver is normal in size. No focal lesions. Gallbladder and Biliary Tree: The gallbladder is unremarkable. No intrahepatic or extrahepatic biliary ductal dilatation. Spleen: Unremarkable Pancreas: The pancreas is grossly unremarkable. Adrenal Glands: Unremarkable Kidneys: Non rotated kidneys. No intrarenal calculi. Minimal right hydronephrosis. No significant left hydronephrosis. GI tract: The stomach is grossly normal in appearance. No evidence of small bowel wall thickening or abnormal dilatation to suggest bowel obstruction. The colon is unremarkable. The appendix is visualized and is normal. Peritoneum/mesentery/retroperitoneum. No evidence of free intraperitoneal air. No ascites. No evidence of suspicious lymphadenopathy. Abdominal Wall: Unremarkable. Vasculature: The visualized abdominal aorta is normal in size and caliber. Evaluation of abdominal and pelvic vessels is limited due to lack of intravenous contrast. Urinary Bladder: Grossly unremarkable for degree of distention. Pelvic Organs: Unremarkable Musculoskeletal: No aggressive focal bony lesions, acute fractures or dislocation. IMPRESSION: 1. Minimal right hydronephrosis. No obstructing stone. Non rotated kidneys. Condition at Discharge: Good Final Diagnosis/Problems List Mild right Hydronephrosis MESHA on CKD grade 3B Hyperkalemia, resolved Prediabetic Moderate normocytic normochromic anemia Primary hypertension dyslipidemia Discharge Disposition: Home Discharge Instruct/Medications Diet: Renal Activity: No Restrictions, As Tolerated Follow Up/Referral: F/U with his PCP in 1 week Medications: Stop lisinopril 5mg qd Start amlodipine 10mg daily Continue rest of home meds Discharge Statement: "Patient was advised to return to the ER or call 911 if any headaches, dizziness, shortness of breath, chest pain, abdominal pain, bleeding, fevers, or worsening of medical condition. Patient was counseled about treatment plan, medications, possible side effects, patientverbalized understanding. All questions were answered to the best of my ability. This discharge took greater then 30 minutes in planning, reviewing documentation, counseling the patient, and discussing with other team members." ASSESSMENT ASSESSMENT Assessment Mild right Hydronephrosis CKD grade 3B Hyperkalemia, resolved Prediabetic Moderate normocytic normochromic anemia Primary hypertension dyslipidemia Date of Service: Aug 13, 2024 Billing Provider: GEOFFREY SHELL MD Common Visit Codes: 41884-SZX/OBS DISCH DAY >30min KVNG LAM Aug 13, 2024 13:47 GEOFFREY SHELL MD Aug 17, 2024 10:05
[2024-08-13 14:47] LABS: Hematocrit 28.3 % (41.0-53.0); Hemoglobin 9.6 g/dL (13.5-17.5)
[2024-08-13 15:06] LABS: Sodium 143 mmol/L (136-145)
[2024-08-13 15:07] LABS: Anion Gap 5 (5-15); Carbon Dioxide 29 mmol/L (20-31)
[2024-08-13 15:16] LABS: Blood Urea Nitrogen 38 mg/dL (9-23); Chloride 109 mmol/L (98-107); Glucose 140 mg/dL (74-106); Potassium 5.5 mmol/L (3.5-5.1)
[2024-08-13] MEDS ORDERED: AMLO1TAB23 PO (16:15)
[2024-08-13] MEDS ORDERED: hydrALAZINE HCL 20 MG/ML VL IV ONE (16:30)
[2024-08-13] MEDS: InsuLIN REG 1unit/0.01ml Soln (100units/ml) IV ONE (16:42)
[2024-08-13] MEDS: SODIUM BICARB 8.4% 50Meq/50ml SYR INJ IV ONE (16:43)
[2024-08-13] MEDS: DEXTROSE (50%) 50ML SYRG IV ONE (16:44)
[2024-08-13] MEDS: FUROSEMIDE 20 MG/2 ML VIAL IV ONE (16:46)
[2024-08-14] MEDS ORDERED: amLODIPine BESYLATE 5 MG TAB PO SCH (10:00)
[2024-08-16 09:09] LABS: Hepatitis B Surface Antigen Negative (Negative)
[2024-08-16 09:27] LABS: Hepatitis C Antibody Negative (Negative)
== END 2024-08-13 21:35 | disposition home or self-care (01) | DRG 469 ==
LOC: ER 10:40 → OVERFLOW 23:41 → WEST WING 08-13 13:37
PROVIDERS: ADMIT Student in an Organized Health Care Education/Training Program; ATTEND Student in an Organized Health Care Education/Training Program
DX: N17.9 Acute kidney failure, unspecified (principal); E11.22 Type 2 diabetes mellitus with diabetic chronic kidney disease; E87.5 Hyperkalemia; E78.5 Hyperlipidemia, unspecified; D64.9 Anemia, unspecified; N13.30 Unspecified hydronephrosis; I12.9 Hypertensive chronic kidney disease with stage 1 through stage 4 chronic kidney disease, or unspecified chronic kidney disease; N18.32 Chronic kidney disease, stage 3b; T46.4X5A Adverse effect of angiotensin-converting-enzyme inhibitors, initial encounter; Y92.89 Other specified places as the place of occurrence of the external cause; Z87.891 Personal history of nicotine dependence; Z79.899 Other long term (current) drug therapy
CPT/HCPCS: 36415; 74176; 76775; 80048; 80053; 81001; 82728; 82962; 83036; 83540; 83550; 84132; 85014; 85018; 85025; 85045; 86803; 87340; 96365; 96375; 99291; G0378; J1815

== ENCOUNTER 2024-08-23 09:49 | Emergency (ER) | payer MEDICAID ==
[~2024-08-23] VITALS: Ht 167.6 cm; Wt 81.0 kg
[~2024-08-23 09:49] MED LIST changes: +AMLO1TAB23 PO; +FERR-7 PO; -IBUP-1456 PO; -ONDA-144 PO
--- NOTE | 2024-08-23 11:36 | ED.PDOC ---
Eye-HPI HPI Comments Jay: HPI: Poor Historian. 29 y.o male presents to the ED for a chief complaint of right sided eye vision change associated with generalized headache that started 2 months ago. Patient reports intermittent blurred vision and black dots with a headache at least once a day. Patient reports similar eye problem in the past. Patient has been seeing his ophthalmologists yearly with last check up one year ago. Patient denies any recent head or eye trauma, nausea, vomiting, focal weaknesses or numbness sensation. Test right eye 20/70, left eye 20/70 and both eyes 20/60 Vitals BP: 124/75 HR: 91 Temp: 99.2 F SPO2: 98% RA RR: 16 Past medical history: DM, HTN and hyperlipidemia, migraines. Past surgical history: Denies No allergies reported REVIEW OF SYSTEMS: CONSTITUTIONAL: Denies acute: fever, diaphoresis, chills, generalized weakness. HEAD: Denies acute: , photophobia Eyes: Denies acute: Double vision, vision loss, eye pain, eye discharge. EARS: Denies acute: tinnitus, hearing loss, ear discharge, ear pain, THROAT: Denies acute: sore throat, swelling, difficulty swallowing , pain with swallowing, change in voice. NECK: Denies acute: neck pain, neck swelling, stiff neck. HEART: Denies acute : chest pain, palpitations, LUNGS: Denies acute: SOB, wheezing, cough, hemoptysis ABDOMEN: Denies acute: abdominal pain, Nausea, Vomiting, diarrhea, melena , hematemesis, hematochezia SKIN: Denies acute: rash, redness, lesions, itchiness. EXTREMITIES: Denies acute: calf pain, numbness, tingling, weakness, denies pain in extremity. Denies acute: Low back pain. Neuro: Denies acute: focal neurological deficit, motor or sensory focal neurological deficit, tremors, seizure like activity, confusion, dizziness, change in mental status, loss of bowel or bladder function, cauda equina like symptoms. : Denies acute: dysuria, hematuria, flank pain, increase in urinary frequency. PSYCH: Denies acute: hallucination, suicidal ideation, homicidal ideation. PHYSICAL EXAM: General: no acute distress, awake and alert. Head: normocephalic, atraumatic. Neck: supple, trachea is midline, no swelling. Throat: Normal phonation. Eyes:, no erythema, no purulent discharge, no proptosis, no icterus. No swelling, nontender to palpation. Heart: regular rate, regular rhythm, no significant murmur appreciated. Lungs: no apparent respiratory distress, Able to speak in full sentences. No wheezing, no rhonchi, no crackles. No stridors Clear to auscultation bilaterally. Abdomen: non tender to palpation, non distended, soft, no guarding, no rebound, + bowel sounds. Neuro: Awake, Alert, oriented to name, self, situation, follows commands GCS=15. Speech is normal. Skin: no petechia, no purpura, no cyanosis, non-pale, not jaundice. Lower extremities: --no - Pitting edema no deformity, no focal swelling, no calf TTP. Makes eye contact. moves all four extremities. Face: no apparent facial droop. Ambulating in the ED independently. PERRLA, EOM-I No nystagmus. No nuchal rigidity, Kernig's sign, Brudzinski's sign, no meningeal signs. ED COURSE: Chief Complaint: Eye Problem Time Seen by MD: 11:30 Primary Care Provider: JOSELUIS King Notes: Allergies Allergies: Coded Allergies: NO KNOWN ALLERGIES (Unverified , 12/01/18) Home Meds Active Scripts Amlodipine Besylate (Amlodipine Besylate) 10 Mg Tab, 1 TAB PO DAILY for 30 Days, #30 TAB 5 Refills Prov:KVNG LAM RESIDENT 08/13/24 Ferrous Sulfate (Iron) 325 Mg Tab, 325 MG PO DAILY for 30 Days, #30 TAB Prov:KVNG LAM RESIDENT 08/13/24 Pantoprazole Sodium Sesquihydr (Protonix) 40 Mg Tab, 40 MG PO DAILY for 30 Days, #30 TAB Prov:GIA REIS RESIDENT 04/20/24 Ondansetron Odt 4MG Tab (ZOFRAN PO) 4 Mg Tb, 4 MG PO Q8HPRN PRN for 3 Days, #9 TAB ODT TAB-DISSOLVE IN MOUTH, THEN SWALLOW Prov:VERNON LAZARO DO 02/26/23 Reported Medications Metformin Hydrochloride (Metformin Hcl) 1,000 Mg Tab, 1 TAB PO DAILY, #60 TAB 5 Refills 04/17/24 Insulin Glargine (Lantus) 100 Unit/Ml Inj, 10 UNIT SC PCHS, INJ 12/03/18 Information Source: Patient Mode of Arrival: Ambulatory Past Medical History PAST MEDICAL HISTORY: DM, High Lipids, HTN Surgical History: Denies all surgeries Family History Family History: Family hx of Cancer Social History Smoker: Quit Greater Than 1 Year Alcohol: Rarely Drugs: Marijuana Lives In: Home Was a procedure done? Was a procedure done?: No EENT DIFF Eye: Chalaz[place], Corneal Abrasion, Corneal Ulceration, Foreign Body-Conjunctiva, Foreign Body-Lid, Glaucoma, Iritis/Uveitis, Orbital Cellulits, Periorbital Cellulits, Retinal Artery Occlusion, Retinal Vein Occlusion, Subconjunctival Hemorrhag, Ultraviolet Keratitis, Virtreous Hemorrhage, Other (Retinal detachment) X-Ray, Labs, Meds, VS Vital Signs Date Time Temp Pulse Resp B/P (MAP) Pulse Ox O2 Delivery O2 Flow Rate FiO2 08/23/24 18:20 98.3 98 16 116/77 (90) 98 98.3 08/23/24 16:18 97.8 103 9 115/57 (76) 97 97.8 08/23/24 14:34 118 08/23/24 13:43 16 100 Room Air* 0 21 08/23/24 13:35 89 16 97 Room Air* 0 21 08/23/24 13:35 126/82 08/23/24 13:35 89 16 126/89 (101) 97 08/23/24 11:39 85 16 97 Room Air 08/23/24 11:39 97.8 85 16 153/104 (120) 97 97.8 08/23/24 10:04 99.2 91 16 124/75 (91) 98 Lab Test 08/23/24 16:42 08/23/24 12:00 08/23/24 11:48 Range/Units Potassium Level 4.8 5.8 *H 3.5-5.1 mmol/L Urine Color Light-yellow Yellow Urine Clarity Clear Clear Urine pH 6.5 5.0-9.0 Urine Specific [place] 1.013 1.001-1.035 Urine Protein 3+ H Negative Urine Ketones Negative Negative Urine Blood Trace H Negative /uL Urine Nitrite Negative Negative Urine Bilirubin Negative Negative Urine Urobilinogen Normal Negative mg/dL Urine Leukocyte Esterase Negative Negative /uL Urine RBC 2 0 - 3 /hpf Urine Microscopic WBC 1 0-3 /HPF Urine Squamous Epithelial Cells None seen <5 /hpf Urine Bacteria None seen None Seen /hpf Urine Hyaline Casts Few 0 - 2 /lpf Urine Glucose Trace Normal mg/dL White Blood Count 4.7 4.4-10.8 10^3/uL Red Blood Count 2.96 L 4.5-5.90 10^6/uL Hemoglobin 9.3 L 13.5-17.5 g/dL Hematocrit 27.8 L 41.0-53.0 % Mean Corpuscular Volume 94.0 80.0-100.0 fL Mean Corpuscular Hemoglobin 31.3 28.0-32.0 pg Mean Corpuscular Hemoglobin Concent 33.3 32.0-36.0 g/dL Red Cell Distribution Width 13.7 11.8-14.3 % Platelet Count 169 140-450 10^3/uL Mean Platelet Volume 8.5 6.9-10.8 fL Neutrophils (%) (Auto) 61.3 37.0-80.0 % Lymphocytes (%) (Auto) 24.6 10.0-50.0 % Monocytes (%) (Auto) 7.8 0.0-12.0 % Eosinophils (%) (Auto) 5.6 0.0-7.0 % Basophils (%) (Auto) 0.7 0.0-2.0 % Neutrophils # (Auto) 2.9 1.6-8.6 10 ^3/uL Lymphocytes # (Auto) 1.2 0.4-5.4 10 ^3/uL Monocytes # (Auto) 0.4 0-1.3 10 ^3/uL Eosinophils # (Auto) 0.3 0-0.8 10 ^3/uL Basophils # (Auto) 0 0-0.2 10 ^3/uL Nucleated Red Blood Cells 0.0 % Erythrocyte Sedimentation Rate 41 H 0-20 mm/hr Sodium Level 143 136-145 mmol/L Chloride Level 110 H 98-107 mmol/L Carbon Dioxide Level 28 20-31 mmol/L Anion Gap 5 5-15 Blood Urea Nitrogen 29 H 9-23 mg/dL Creatinine 2.14 H 0.700-1.30 mg/dL Glomerular Filtration Rate Calc 41 >90 mL/min BUN/Creatinine Ratio 13.6 10.0-20.0 Serum Glucose 128 H 74-106 mg/dL Calcium Level 9.0 8.7-10.4 mg/dL Magnesium Level 2.2 1.6-2.6 mg/dL Total Bilirubin 0.3 0.2-1.0 mg/dL Aspartate Amino Transferase (AST) 20 13-40 U/L Alanine Aminotransferase (ALT) 24 7-40 U/L Alkaline Phosphatase 67 46-116 U/L Total Protein 6.1 5.7-8.2 g/dL Albumin 3.8 3.2-4.8 g/dL Current Medications Medications (Trade) Dose Ordered Sig/Jorge Route Start Time Stop Time Status Last Admin Albuterol (Ventolin Medneb) 20 mg ONCE ONCE NEB 08/23/24 12:45 08/23/24 13:03 DC 08/23/24 13:43 Furosemide (Lasix Injection) 20 mg ONCE ONCE IV 08/23/24 12:45 08/23/24 13:03 DC 08/23/24 13:35 Calcium Gluconate/ Sodium Chloride 50 ml @ 120 mls/hr ONCE ONCE IV 08/23/24 12:45 08/23/24 13:09 DC 08/23/24 13:30 Zirconium Oxide (Lokelma) 10 gm ONCE ONCE PO 08/23/24 12:45 08/23/24 13:03 DC 08/23/24 13:34 Acetaminophen/ Hydrocodone Bitart ([place] 5/325MG Tab) 1 tab ONCE ONCE PO 08/23/24 14:00 08/23/24 14:01 DC 08/23/24 14:26 [place] [id number] Ph: [phone] DIAGNOSTIC IMAGING Diagnostic Imaging Report : [id number] Signed PATIENT: RAVINDER MARISCAL ACCT: [id number] UNIT: [id number] : 1995 LOC: ER ROOM / BED: / AGE / SEX: 29 / M ADM STATUS: REG ER SERVICE 1134 ORDERING PHYSICIAN: VERNON LAZARO DO PROCEDURE(s): HWOCT - HEAD WITHOUT CONTRAST REASON: headache ORDER NUMBER(s): [id number], ACCESSION NUMBER(s): [id number] CT brain without contrast CLINICAL INDICATION: Altered mental status FINDINGS: The study was performed in a multidetector scanner. This study performed taking axial images from the skull base up to the vertex. Both brain and bone windows are photographed. Dose lowering techniques have been used including automated exposure control and adjustment of mA and/or KV according to patient size. Normal and symmetrical shape and density of brain parenchyma above and below the tentorium is seen. There is no mass, midline shift or hydrocephalus. No intra/extra-axial collections demonstrated. There is no intracranial hemorrhage. The calvarium is intact. Mild mucosal thickening of the right maxillary sinus and of the ethmoid sinuses IMPRESSION: 1. No acute intracranial pathology. 2. Chronic paranasal sinus disease Computed Tomographic Radiation Dosimetry Report: Total CTDI vol = 64 mGy Total DLP = 1142 mGy-cm All CT scans at this medical facility are performed using dose modulation techniques as appropriate to a performed exam including the following: Automated exposure control was utilized; adjustment of the MA and/or KvP according to patient size; and use of iterative reconstruction technique. ATED BY: FORD RIVERS MD DICTATED DATE/TIME: 08/23/24 115 SIGNED BY: FORD RIVERS MD SIGNED DATE/TIME: 08/23/24 115 CC: Time of 1ST Reevaluation: 11:35 Reevaluation 1ST: Unchanged Time of 2ND Reevaluation: 18:21 Reevaluation 2ND: Resolved Patient Education/Counseling: Diagnosis, Treatment Family Education/Counseling: No Family Present Comments Hyperkalemia treated. Patient presented with the above HPI.--headache and right eye complaint without pain or redness----workup was initiated. patient was found with the above mentioned diagnosis. the following medications were ordered: please refer to order lists of meds and tests obtained by myself Dr. Lazaro. Patient ED course and VS have been stabilized. Patient has been reassessed in the ED and remained in a stable condition. Pertinent incidental findings were discussed with the patient and/or family. Patient/family voices understanding and is agreeable with plan. Patient has been observed in the ED adequate length of time to insure improvement/stability. Escalation of care considered: Consideration of escalation to observation or admission Patient was DISCHARGED home in a stable condition. All the reports of any imaging studies that were ordered by myself were reviewed by myself. Departure 1 Departure Time of Disposition: 13:49 Impression: Primary Impression: Headache Additional Impressions: Visual disturbance of one eye Hyperkalemia Chronic kidney disease Disposition: HOME / SELF CARE / HOMELESS Condition: Stable Additional Instructions: Additional discharge instructions: You MUST follow-up with your primary care/family doctor in 1 to 2 days. If you are unable to see your primary care/family doctor, please return to our emergency room for re-assessment and re-evaluation in 1 to 2 days. Return to the emergency room here in our facility or to the nearest ER [facility] if your symptoms change or worsen. CONSULTATIONS: you MUST Follow-up for consultation as soon as possible with: -ophthalmology in 1-2 days. Please call for appointment. Urology in 1-2 days. Please call for appointment. Follow up with Nephrology as needed for your chronic kidney disease. You MUST call the consultants office yourself to make an appointment. You may need to arrange that through your insurance and/or your primary/family doctor. If you are unable to see the exchange consultant in 1 to 2 days, you must return to our emergency room (or any other ER of your choice) for re-assessment and re- evaluation. Adequate fluid hydration. Below is a copy of your radiological report for follow up: [place] [address] Ph: [phone] DIAGNOSTIC IMAGING Diagnostic Imaging Report : [id number] Signed PATIENT: RAVINDER MARISCAL ACCT: [id number] UNIT: [id number] : 1995 LOC: ER ROOM / BED: / AGE / SEX: 29 / M ADM STATUS: REG ER SERVICE 1134 ORDERING PHYSICIAN: VERNON LAZARO DO PROCEDURE(s): HWOCT - HEAD WITHOUT CONTRAST REASON: headache ORDER NUMBER(s): [id number], ACCESSION NUMBER(s): [id number] CT brain without contrast CLINICAL INDICATION: Altered mental status FINDINGS: The study was performed in a multidetector scanner. This study performed taking axial images from the skull base up to the vertex. Both brain and bone windows are photographed. Dose lowering techniques have been used including automated exposure control and adjustment of mA and/or KV according to patient size. Normal and symmetrical shape and density of brain parenchyma above and below the tentorium is seen. There is no mass, midline shift or hydrocephalus. No intra/extra-axial collections demonstrated. There is no intracranial hemorrhage. The calvarium is intact. Mild mucosal thickening of the right maxillary sinus and of the ethmoid sinuses IMPRESSION: 1. No acute intracranial pathology. 2. Chronic paranasal sinus disease Computed Tomographic Radiation Dosimetry Report: Total CTDI vol = 64 mGy Total DLP = 1142 mGy-cm All CT scans at this medical facility are performed using dose modulation techniques as appropriate to a performed exam including the following: Automated exposure control was utilized; adjustment of the MA and/or KvP according to patient size; and use of iterative reconstruction technique. ATED BY: FORD RIVERS MD DICTATED DATE/TIME: 08/23/24 1151 SIGNED BY: FORD RIVERS MD SIGNED DATE/TIME: 08/23/24 1151 CC: Discharged With: Self Critical Care Note Critical Care Time?: No I personally scribed for VERNON LAZARO DO ([email or web address]) on 08/23/24 at 11:36. Electronically submitted by Isabela Centeno ([facility]). I personally scribed for VERNON LAZARO DO ([email or web address]) on 08/23/24 at 13:09. Electronically submitted by Isabela Centeno ([facility]). I personally scribed for VERNON LAZARO DO ([email or web address]) on 08/23/24 at 14:45. Electronically submitted by Isabela Centeno ([facility]). I personally scribed for VERNON LAZARO DO ([email or web address]) on 08/23/24 at 18:22. E lectronically submitted by Isabela Centeno ([facility]). VERNON LAZARO DO Aug 23, 2024 11:36
--- NOTE | 2024-08-23 11:54 | DVH ---
CT brain without contrast CLINICAL INDICATION: Altered mental status FINDINGS: The study was performed in a multidetector scanner. This study performed taking axial imag es from the skull base up to the vertex. Both brain and bone windows are photographed. Dose lowering techniques have been used including automated exposure control and adjustment of mA and /or KV according to patient size. Normal and symmetrical shape and density of brain parenchyma above and below the tentorium is seen. T here is no mass, midline shift or hydrocephalus. No intra/extra-axial collections demonstrated. There is no intracranial hemorrhage. The calvarium is intact. Mild mucosal thickening of the right maxilla ry sinus and of the ethmoid sinuses IMPRESSION: 1. No acute intracranial pathology. 2. Chronic paranasal sinus disease Computed Tomographic Radiation Dosimetry Report: Total CTDI vol = 64 mGy Total DLP = 1142 mGy-cm All CT scans at this medical facility are performed using dose modulation techniques as appropriate t o a performed exam including the following: Automated exposure control was utilized; adjustment of the MA and/or KvP according to patient size; a nd use of iterative reconstruction technique.
[2024-08-23 12:13] LABS: Basophils # (auto) 0 10 ^3/uL (0-0.2); Basophils % (auto) 0.7 % (0.0-2.0); Eosinophils # (auto) 0.3 10 ^3/uL (0-0.8); Eosinophils % (auto) 5.6 % (0.0-7.0); Hematocrit 27.8 % (41.0-53.0); Hemoglobin 9.3 g/dL (13.5-17.5); Lymphocytes # (auto) 1.2 10 ^3/uL (0.4-5.4); Lymphocytes % (auto) 24.6 % (10.0-50.0); Mean Corpuscular Hemoglobin 31.3 pg (28.0-32.0); Mean Corpuscular Hgb Conc. 33.3 g/dL (32.0-36.0); Monocytes # (auto) 0.4 10 ^3/uL (0-1.3); Monocytes % (auto) 7.8 % (0.0-12.0); Neutrophils # (auto) 2.9 10 ^3/uL (1.6-8.6); Neutrophils % (auto) 61.3 % (37.0-80.0); Platelet Count (auto) 169 10^3/uL (140-450); Red Blood Cells 2.96 10^6/uL (4.5-5.90); Red Cell Distribution Width 13.7 % (11.8-14.3); White Blood Cell 4.7 10^3/uL (4.4-10.8)
[2024-08-23 12:25] LABS: Alanine Aminotransferase 24 U/L (7-40); Albumin 3.8 g/dL (3.2-4.8); Alkaline Phosphatase 67 U/L (46-116); Anion Gap 5 (5-15); Aspartate Aminotransferase 20 U/L (13-40); BUN/Creatinine Ratio 13.6 (10.0-20.0); Carbon Dioxide 28 mmol/L (20-31); Sodium 143 mmol/L (136-145); Total Protein 6.1 g/dL (5.7-8.2)
[2024-08-23 12:26] LABS: Bilirubin, Total 0.3 mg/dL (0.2-1.0)
[2024-08-23 12:29] LABS: Blood Urea Nitrogen 29 mg/dL (9-23); Chloride 110 mmol/L (98-107); Glucose 128 mg/dL (74-106)
[2024-08-23 12:33] LABS: Potassium 5.8 mmol/L (3.5-5.1)
[2024-08-23 12:33] LABS: Urine Bacteria None Seen /hpf (None Seen)
[2024-08-23 12:54] LABS: Erythrocyte Sedimentation Rate 41 mm/hr (0-20)
[2024-08-23 12:55] LABS: Urine Blood TRACE /uL (Negative); Urine Clarity Clear (Clear); Urine Color Light-Yellow (Yellow); Urine Hyaline Cast FEW /lpf (0 - 2); Urine Protein, UAD 3+ (Negative); Urine Specific Gravity 1.013 (1.001-1.035); Urine Squamous Epithelial Cell None Seen /hpf (<5); Urine Urobilinogen Normal (Negative); Urine WBC 1 /HPF (0-3); Urine pH 6.5 (5.0-9.0)
[2024-08-23] MEDS: CALCIUM GLUC 1,000mg/50ml-NS 50 ML IV ONE (13:30)
[2024-08-23] MEDS: SODIUM ZIRCONIUM CYCL 10 GM PAK PO ONE (13:34)
[2024-08-23 13:35] VITALS: PULSE 89; RESP 16; O2SAT 97
[2024-08-23] MEDS: FUROSEMIDE 20 MG/2 ML VIAL IV ONE (13:35)
[2024-08-23] MEDS: ALBUTEROL SULF 2.5 MG/0.5ML(0.5%) NEB SOLN NEB ONE (13:43)
[2024-08-23] MEDS: HYDROcodone-ACET 5/325MG TAB PO ONE (14:26)
--- NOTE | 2024-08-23 14:36 | ECG ---
[facility] Test Date: 2024-08-23 Test Time: 14:34:21 Pat Name: RAVINDER MARISCAL Department: ER Room: Gender: M Pack Out Operator: GILBERT : 1995 Requested By: VERNON LAZARO Order Number: [id number] Reading MD: Milton Lobo Measurements Intervals [place] Rate: 118 P: 83 ID: [id number] QRS: 139 QRSD: 102 T: 45 QT: 339 QTc: 476 Interpretive Statements Sinus tachycardia Consider right ventricular hypertrophy Borderline prolonged QT interval Electronically Signed On 08-26-2024 21:54:16 PST by Milton Lobo Please click the below link to view image of tracing.
[2024-08-23 18:20] VITALS: BP 116/77; PULSE 98; RESP 16; TEMP 98.3; O2SAT 98
== END 2024-08-23 18:33 | disposition home or self-care (01) ==
LOC: ER 09:49
DX: H53.8 Other visual disturbances (principal); E87.5 Hyperkalemia; R51.9 Headache, unspecified; E78.5 Hyperlipidemia, unspecified; I12.9 Hypertensive chronic kidney disease with stage 1 through stage 4 chronic kidney disease, or unspecified chronic kidney disease; E11.22 Type 2 diabetes mellitus with diabetic chronic kidney disease; N18.9 Chronic kidney disease, unspecified; Z79.899 Other long term (current) drug therapy
CPT/HCPCS: 36415; 70450; 80053; 81001; 83735; 84132; 85025; 85652; 93005; 94640; 96365; 96375

== ENCOUNTER 2024-09-06 14:12 | Inpatient (IN) | payer MEDICAID ==
[~2024-09-06] VITALS: Ht 177.8 cm; Wt 85.7 kg
--- NOTE | 2024-09-06 14:50 | ECG ---
[facility] Test Date: 2024-09-06 Test Time: 14:49:37 Pat Name: RAVINDER MARISCAL Department: ER Room: 0284T Gender: M Pill Machine Operator: OKSANA : 1995 Requested By: VERNON LAZARO Order Number: [id number] Reading MD: Milton Lobo Measurements Intervals [place] Rate: 87 P: 45 RI: 134 QRS: 8 QRSD: 99 T: 52 QT: 349 QTc: 420 Interpretive Statements Sinus rhythm RSR' in V1 or V2, right VCD or RVH ST elev, probable normal early repol pattern Electronically Signed On 09-11-2024 17:21:44 PST by Milton Lobo Please click the below link to view image of tracing.
--- NOTE | 2024-09-06 14:53 | ED.PDOC ---
History of Present Illness HPI Comments HPI: Poor Historian. 29 y.o male presents to the ED for an evaluation of abnormal labs. Patient had routine lab work done and got a call regarding elevated potassium levels. Patient was sent to the ED for further evaluation, althought he was not told the number of potassium value. BG read 127 Vitals BP: 144/78 HR: 90 Temp: 98.2 F RR: 18 SPO2: 98% RA Past medical history: DM, HTN, GERD, hyperlipidemia, CKF, fatty liver, anemia Past surgical history: Denies Allergies: Denies REVIEW OF SYSTEMS: CONSTITUTIONAL: Denies acute: fever, diaphoresis, chills, generalized weakness. HEAD: Denies acute: headache, photophobia Eyes: Denies acute: Double vision, vision loss, eye pain, eye discharge. EARS: Denies acute: tinnitus, hearing loss, ear discharge, ear pain, THROAT: Denies acute: sore throat, swelling, difficulty swallowing , pain with swallowing, change in voice. NECK: Denies acute: neck pain, neck swelling, stiff neck. HEART: Denies acute : chest pain, palpitations, LUNGS: Denies acute: SOB, wheezing, cough, hemoptysis ABDOMEN: Denies acute: abdominal pain, Nausea, Vomiting, diarrhea, melena , hematemesis, hematochezia SKIN: Denies acute: rash, redness, lesions, itchiness. EXTREMITIES: Denies acute: calf pain, numbness, tingling, weakness, denies pain in extremity. Denies acute: Low back pain. Neuro: Denies acute: focal neurological deficit, motor or sensory focal neurological deficit, tremors, seizure like activity, confusion, dizziness, change in mental status, loss of bowel or bladder function, cauda equina like symptoms. : Denies acute: dysuria, hematuria, flank pain, increase in urinary frequency. PSYCH: Denies acute: hallucination, suicidal ideation, homicidal ideation. PHYSICAL EXAM: General: no acute distress, awake and alert. Head: normocephalic, atraumatic. Neck: supple, trachea is midline, no swelling. Throat: Normal phonation. Eyes:, no erythema, no purulent discharge, no proptosis, no icterus. Heart: regular rate, regular rhythm, no significant murmur appreciated. Lungs: no apparent respiratory distress, Able to speak in full sentences. No wheezing, no rhonchi, no crackles. No stridors Clear to auscultation bilaterally. Abdomen: non tender to palpation, non distended, soft, no guarding, no rebound, + bowel sounds. Neuro: Awake, Alert, oriented to name, self, situation, follows commands GCS=15. Speech is normal. Skin: no petechia, no purpura, no cyanosis, non-pale, not jaundice. Lower extremities: --one/for bilateral ankle - Pitting edema no deformity, no focal swelling, no calf TTP. Makes eye contact. moves all four extremities. Face: no apparent facial droop. Ambulating in the ED independently. ED COURSE: Time Seen by MD: 14:48 Primary Care Provider: JOSELUIS Reviewed Notes: Nurses Notes, Allergies Allergies: Coded Allergies: NO KNOWN ALLERGIES (Unverified , 12/01/18) Home Meds Active Scripts Amlodipine Besylate (Amlodipine Besylate) 10 Mg Tab, 1 TAB PO DAILY for 30 Days, #30 TAB 5 Refills Prov:KVNG LAM RESIDENT 08/13/24 Ferrous Sulfate (Iron) 325 Mg Tab, 325 MG PO DAILY for 30 Days, #30 TAB Prov:KVNG LAM RESIDENT 08/13/24 Pantoprazole Sodium Sesquihydr (Protonix) 40 Mg Tab, 40 MG PO DAILY for 30 Days, #30 TAB Prov:GAI REIS RESIDENT 04/20/24 Ondansetron Odt 4MG Tab (ZOFRAN PO) 4 Mg Tb, 4 MG PO Q8HPRN PRN for 3 Days, #9 TAB ODT TAB-DISSOLVE IN MOUTH, THEN SWALLOW Prov:VERNON LAZARO DO 02/26/23 Reported Medications Metformin Hydrochloride (Metformin Hcl) 1,000 Mg Tab, 1 TAB PO DAILY, #60 TAB 5 Refills 04/17/24 Insulin Glargine (Lantus) 100 Unit/Ml Inj, 10 UNIT SC PCHS, INJ 12/03/18 Information Source: Patient Mode of Arrival: Ambulatory Past Medical History PAST MEDICAL HISTORY: Anemia, CKF, DM, GERD, High Lipids, HTN, Liver Surgical History: Denies all surgeries Family History Family History: Family hx of Cancer Social History Smoker: Quit Greater Than 1 Year Alcohol: Rarely Drugs: Marijuana Lives In: Home Was a procedure done? Was a procedure done?: No Differential Dx Considerations may include: Hyperkalemia , renal failure X-Ray, Labs, Meds, VS Vital Signs Date Time Temp Pulse Resp B/P (MAP) Pulse Ox O2 Delivery O2 Flow Rate FiO2 09/06/24 17:13 122 09/06/24 16:53 16 100 Room Air* 0 21 09/06/24 15:00 98.2 90 18 144/78 (100) 98 09/06/24 14:49 87 Lab Test 09/06/24 17:16 09/06/24 15:28 09/06/24 14:50 09/06/24 14:44 Range/Units POC Glucose 138 H 127 H 70-106 mg/dl White Blood Count 5.2 4.4-10.8 10^3/uL Red Blood Count 2.96 L 4.5-5.90 10^6/uL Hemoglobin 9.4 L 13.5-17.5 g/dL Hematocrit 27.8 L 41.0-53.0 % Mean Corpuscular Volume 93.8 80.0-100.0 fL Mean Corpuscular Hemoglobin 31.9 28.0-32.0 pg Mean Corpuscular Hemoglobin Concent 34.0 32.0-36.0 g/dL Red Cell Distribution Width 13.9 11.8-14.3 % Platelet Count 235 140-450 10^3/uL Mean Platelet Volume 8.3 6.9-10.8 fL Neutrophils (%) (Auto) 62.0 37.0-80.0 % Lymphocytes (%) (Auto) 25.4 10.0-50.0 % Monocytes (%) (Auto) 7.1 0.0-12.0 % Eosinophils (%) (Auto) 4.8 0.0-7.0 % Basophils (%) (Auto) 0.7 0.0-2.0 % Neutrophils # (Auto) 3.2 1.6-8.6 10 ^3/uL Lymphocytes # (Auto) 1.3 0.4-5.4 10 ^3/uL Monocytes # (Auto) 0.4 0-1.3 10 ^3/uL Eosinophils # (Auto) 0.2 0-0.8 10 ^3/uL Basophils # (Auto) 0 0-0.2 10 ^3/uL Nucleated Red Blood Cells 0.0 % Sodium Level 143 136-145 mmol/L Potassium Level 5.7 *H 3.5-5.1 mmol/L Chloride Level 111 H 98-107 mmol/L Carbon Dioxide Level 27 20-31 mmol/L Anion Gap 5 5-15 Blood Urea Nitrogen 35 H 9-23 mg/dL Creatinine 2.66 H 0.700-1.30 mg/dL Glomerular Filtration Rate Calc 32 >90 mL/min BUN/Creatinine Ratio 13.2 10.0-20.0 Serum Glucose 139 H 74-106 mg/dL Calcium Level 8.9 8.7-10.4 mg/dL Total Bilirubin 0.3 0.2-1.0 mg/dL Aspartate Amino Transferase (AST) 29 13-40 U/L Alanine Aminotransferase (ALT) 46 H 7-40 U/L Alkaline Phosphatase 71 46-116 U/L B-Type Natriuretic Peptide 13.00 0-100 pg/mL Total Protein 6.5 5.7-8.2 g/dL Albumin 3.9 3.2-4.8 g/dL Urine Color Light-yellow Yellow Urine Clarity Clear Clear Urine pH 6.5 5.0-9.0 Urine Specific [place] 1.012 1.001-1.035 Urine Protein 3+ H Negative Urine Ketones Negative Negative Urine Blood Trace H Negative /uL Urine Nitrite Negative Negative Urine Bilirubin Negative Negative Urine Urobilinogen Normal Negative mg/dL Urine Leukocyte Esterase Negative Negative /uL Urine RBC 2 0 - 3 /hpf Urine Microscopic WBC 1 0-3 /HPF Urine Squamous Epithelial Cells None seen <5 /hpf Urine Bacteria None seen None Seen /hpf Urine Glucose Trace Normal mg/dL Current Medications Medications (Trade) Dose Ordered Sig/Jorge Route Start Time Stop Time Status Last Admin Insulin Human Regular (InsuLIN R) 10 units ONCE ONCE IV 09/06/24 16:30 09/06/24 16:45 DC 09/06/24 17:40 Dextrose 50 ml ONCE ONCE IV 09/06/24 16:30 09/06/24 16:45 DC 09/06/24 17:39 Albuterol (Ventolin Medneb) 20 mg ONCE ONCE NEB 09/06/24 16:30 09/06/24 16:45 DC 09/06/24 16:53 Sodium Bicarbonate 50 ml ONCE ONCE IV 09/06/24 16:30 09/06/24 16:45 DC 09/06/24 17:47 Furosemide (Lasix Injection) 20 mg ONCE ONCE IV 09/06/24 16:30 09/06/24 16:45 DC 09/06/24 17:47 Calcium Gluconate/ Sodium Chloride 50 ml @ 120 mls/hr ONCE ONCE IV 09/06/24 16:30 09/06/24 16:54 DC 09/06/24 17:21 Zirconium Oxide (Lokelma) 10 gm ONCE ONCE PO 09/06/24 16:30 09/06/24 16:45 DC 09/06/24 17:46 Time of 1ST Reevaluation: 14:48 Reevaluation 1ST: Unchanged Time of 2ND Reevaluation: 20:51 Reevaluation 2ND: Improved Patient Education/Counseling: Diagnosis, Treatment Family Education/Counseling: No Family Present Comments Patient presented with the above HPI.---hyperkalemia---workup was initiated. patient was found with the above mentioned diagnosis. the following medications were ordered: please refer to order lists of meds and tests obtained by myself Dr. Lazaro. Patient ED course and VS have been stabilized. Patient has been reassessed in the ED and remained in a stable condition. Pertinent incidental findings were discussed with the patient and/or family. Patient/family voices understanding and is agreeable with plan. Patient has been observed in the ED adequate length of time to insure improv ement/stability. Escalation of care considered: Consideration of escalation to observation or admission Patient was ADMITTED to the medicine team for further evaluation and treatment of their presentation. Hyperkalemia protocol was initiated. All the reports of any imaging studies that were ordered by myself were reviewed by myself. Departure 1 Departure Time of Disposition: 16:22 Impression: Primary Impression: Hyperkalemia Additional Impression: Chronic kidney disease Disposition: ADMITTED INPATIENT Admit to: Tele Condition: Guarded Discharged With: Self Critical Care Note Critical Care Time?: Yes (35 min-critical care time only) I personally scribed for VERNON LAZARO DO ([email or web address]) on 09/06/24 at 14:53. Electronically submitted by Isabela Centeno ([facility]). I personally scribed for VERNON LAZARO DO ([email or web address]) on 09/06/24 at 14:59. Electronically submitted by Isabela Centeno ([facility]). I personally scribed for [facility] on 09/06/24 at 16:54. Electronically submitted by Isabela Centeno ([facility]). I personally scribed for VERNON LAZARO DO ([facility] on 09/06/24 at 19:56. Electronically submitted by Isabela Centeno ([facility]). VERNON LAZARO DO Sep 06, 2024 14:53
[2024-09-06 15:40] LABS: Urine Bacteria None Seen /hpf (None Seen)
[2024-09-06 15:59] LABS: Basophils # (auto) 0 10 ^3/uL (0-0.2); Basophils % (auto) 0.7 % (0.0-2.0); Eosinophils # (auto) 0.2 10 ^3/uL (0-0.8); Eosinophils % (auto) 4.8 % (0.0-7.0); Hematocrit 27.8 % (41.0-53.0); Hemoglobin 9.4 g/dL (13.5-17.5); Lymphocytes # (auto) 1.3 10 ^3/uL (0.4-5.4); Lymphocytes % (auto) 25.4 % (10.0-50.0); Mean Corpuscular Hemoglobin 31.9 pg (28.0-32.0); Mean Corpuscular Volume 93.8 fL (80.0-100.0); Monocytes # (auto) 0.4 10 ^3/uL (0-1.3); Monocytes % (auto) 7.1 % (0.0-12.0); Neutrophils # (auto) 3.2 10 ^3/uL (1.6-8.6); Platelet Count (auto) 235 10^3/uL (140-450); Red Blood Cells 2.96 10^6/uL (4.5-5.90); Red Cell Distribution Width 13.9 % (11.8-14.3); White Blood Cell 5.2 10^3/uL (4.4-10.8)
[2024-09-06 16:00] LABS: Urine Blood TRACE /uL (Negative); Urine Clarity Clear (Clear); Urine Color Light-Yellow (Yellow); Urine Protein, UAD 3+ (Negative); Urine Specific Gravity 1.012 (1.001-1.035); Urine Squamous Epithelial Cell None Seen /hpf (<5); Urine Urobilinogen Normal (Negative); Urine WBC 1 /HPF (0-3); Urine pH 6.5 (5.0-9.0)
[2024-09-06 16:17] LABS: Alkaline Phosphatase 71 U/L (46-116); Anion Gap 5 (5-15); BUN/Creatinine Ratio 13.2 (10.0-20.0); Calcium 8.9 mg/dL (8.7-10.4); Carbon Dioxide 27 mmol/L (20-31); Sodium 143 mmol/L (136-145); Total Protein 6.5 g/dL (5.7-8.2)
[2024-09-06 16:18] LABS: Albumin 3.9 g/dL (3.2-4.8); Aspartate Aminotransferase 29 U/L (13-40); Bilirubin, Total 0.3 mg/dL (0.2-1.0)
[2024-09-06 16:21] LABS: Alanine Aminotransferase 46 U/L (7-40); Blood Urea Nitrogen 35 mg/dL (9-23); Chloride 111 mmol/L (98-107); Glucose 139 mg/dL (74-106); Potassium 5.7 mmol/L (3.5-5.1)
[2024-09-06] MEDS: ALBUTEROL SULF 2.5 MG/0.5ML(0.5%) NEB SOLN NEB ONE (16:53)
[2024-09-06] MEDS: ALBUTEROL SULF 2.5 MG/0.5ML(0.5%) NEB SOLN ONE (16:57)
[2024-09-06] MEDS: CALCIUM GLUC 1,000mg/50ml-NS 50 ML IV ONE (17:21)
[2024-09-06 17:28] VITALS: PULSE 126; RESP 19; O2SAT 99
[2024-09-06] MEDS ORDERED: ALBUTEROL SULF 2.5 MG/0.5ML(0.5%) NEB SOLN NEB PRN (17:30)
[2024-09-06] MEDS ORDERED: DEXTROSE (50%) 50ML SYRG IV PRN (17:30)
[2024-09-06] MEDS ORDERED: ACETAMINOPHEN 325 MG TAB PO PRN (17:30)
[2024-09-06] MEDS ORDERED: ONDANSETRON HCL 4 MG/2 ML VIAL IV PRN (17:30)
[2024-09-06] MEDS ORDERED: MORPHINE SULFATE INJ 2 MG/ml SYRG IV PRN (17:30)
[2024-09-06] MEDS ORDERED: IPRATROPIUM BROM 0.5 MG/2.5ML INH SOL NEB PRN (17:30)
[2024-09-06] MEDS ORDERED: DOCUSATE SOD 100 MG CAP PO PRN (17:30)
[2024-09-06] MEDS ORDERED: NITROGLYCERIN 0.4 MG SL TAB SL PRN (17:30)
[2024-09-06] MEDS ORDERED: HYDROcodone-ACET 5/325MG TAB PO PRN (17:30)
--- NOTE | 2024-09-06 17:33 | DVHHP2 ---
History of Present Illness Reason for Visit: Hyperkalemia History of Present Illness The patient is a 29 year old male with past medical history of chronic kidney failure, DM, GERD, hyperlipidemia, liver disease, and anemia who presented to [facility] ED for evaluation of abnormal labs. Patient had routine lab work done, got a call regarding elevated potassium levels and was sent to the ED for further evaluation. Patient was seen and evaluated in the ED, laboratory data shows WBC 5.2, hemoglobin 9.4, hematocrit 27.8, platelets 235, sodium 143, potassium 5.7, BUN 35, creatinine 2.66, GFR 32, glucose 139, AST 29, ALT 46, BNP 13.00. Patient was given hyperkalemia protocol treatment, please see medication orders section in the computer. On my assessment, patient denied chest pain, no headache, no dizziness, no shortness of breath, no abdominal pain, no diarrhea, no nausea, no vomiting, no fever, no chills. Patient was admitted for further evaluation and medical management. Past Medical History Anemia, CKF, DM, GERD, High Lipids, HTN, Liver Past Surgical History Denies all surgeries Family History Reviewed, noncontributory to the management of this case. Past Social History The patient lives at home, quit smoking greater than 1 year, rarely drinks alcohol, uses marijuana. Review of Systems Constitutional: No: Fever, Chills, Sweats, Weakness, Malaise, Other Eyes: No: Pain, Vision change, Conjunctivae inflammation, Eyelid inflammation, Other, Redness ENT: No: Ear pain, Ear discharge, Nose pain, Nose discharge, Nose congestion, Mouth pain, Mouth swelling, Throat pain, Throat swelling, Other Respiratory: No: Cough, Dry, Shortness of breath, SOB with excertion, Wheezing, Hemoptysis, Pleuritic Pain, Sputum, Wheezing, Other Cardiovascular: No: Chest Pain, Palpitations, Orthopnea, Paroxysmal Noc. Dyspnea, Edema, Lt Headedness, Other Gastrointestinal: No: Nausea, Vomiting, Abdominal Pain, Diarrhea, Constipation, Melena, Hematochezia, Other Genitourinary: No Dysuria, No Frequency, No Incontinence, No Hematuria, No Retention, No Other Musculoskeletal: No: other, neck pain, shoulder pain, arm pain, back pain, hand pain, leg pain, foot pain Skin: No: Rash, Lesions, Jaundice, Bruising, Other Neurological: No: Weakness, Numbness, Incoordination, Change in speech, Confusion, Seizures, Other Allergies: Coded Allergies: NO KNOWN ALLERGIES (Unverified , 12/01/18) Exam Vital Signs Vital Signs Date Time Temp Pulse Resp B/P (MAP) Pulse Ox O2 Delivery O2 Flow Rate FiO2 09/06/24 17:28 126 19 99 Room Air* 0 21 09/06/24 15:00 98.2 144/78 (100) General Appearance: Alert, Oriented X3, Cooperative, No acute distress HEENT: Atraumatic, PERRLA, EOMI, Mucous membr. moist/pink Respiratory: Clear to auscultation, Normal air movement Cardiovascular: Regular rate, Normal S1, Normal S2, No murmurs Abdominal: Normal bowel sounds, Soft, No tenderness, No hepatospenomegaly, No masses Extremities: No clubbing, No cyanosis, No edema, Normal pulses, No tenderne ss/swelling Skin: No rashes, No breakdown, No significant lesion Neuro: Normal gait, Normal speech, Strength at 5/5 X4 ext, Normal tone, Sensation intact, Cranial nerves 3-12 NL, Reflexes 2+ Psych/Mental Status: Mental status NL, Mood NL Labs/Xrays Labs Test 09/06/24 17:16 09/06/24 15:28 09/06/24 14:50 Range/Units POC Glucose 138 H 70-106 mg/dl White Blood Count 5.2 4.4-10.8 10^3/uL Red Blood Count 2.96 L 4.5-5.90 10^6/uL Hemoglobin 9.4 L 13.5-17.5 g/dL Hematocrit 27.8 L 41.0-53.0 % Mean Corpuscular Volume 93.8 80.0-100.0 fL Mean Corpuscular Hemoglobin 31.9 28.0-32.0 pg Mean Corpuscular Hemoglobin Concent 34.0 32.0-36.0 g/dL Red Cell Distribution Width 13.9 11.8-14.3 % Platelet Count 235 140-450 10^3/uL Mean Platelet Volume 8.3 6.9-10.8 fL Neutrophils (%) (Auto) 62.0 37.0-80.0 % Lymphocytes (%) (Auto) 25.4 10.0-50.0 % Monocytes (%) (Auto) 7.1 0.0-12.0 % Eosinophils (%) (Auto) 4.8 0.0-7.0 % Basophils (%) (Auto) 0.7 0.0-2.0 % Neutrophils # (Auto) 3.2 1.6-8.6 10 ^3/uL Lymphocytes # (Auto) 1.3 0.4-5.4 10 ^3/uL Monocytes # (Auto) 0.4 0-1.3 10 ^3/uL Eosinophils # (Auto) 0.2 0-0.8 10 ^3/uL Basophils # (Auto) 0 0-0.2 10 ^3/uL Nucleated Red Blood Cells 0.0 % Sodium Level 143 136-145 mmol/L Potassium Level 5.7 *H 3.5-5.1 mmol/L Chloride Level 111 H 98-107 mmol/L Carbon Dioxide Level 27 20-31 mmol/L Anion Gap 5 5-15 Blood Urea Nitrogen 35 H 9-23 mg/dL Creatinine 2.66 H 0.700-1.30 mg/dL Glomerular Filtration Rate Calc 32 >90 mL/min BUN/Creatinine Ratio 13.2 10.0-20.0 Serum Glucose 139 H 74-106 mg/dL Calcium Level 8.9 8.7-10.4 mg/dL Total Bilirubin 0.3 0.2-1.0 mg/dL Aspartate Amino Transferase (AST) 29 13-40 U/L Alanine Aminotransferase (ALT) 46 H 7-40 U/L Alkaline Phosphatase 71 46-116 U/L B-Type Natriuretic Peptide 13.00 0-100 pg/mL Total Protein 6.5 5.7-8.2 g/dL Albumin 3.9 3.2-4.8 g/dL Urine Color Light-yellow Yellow Urine Clarity Clear Clear Urine pH 6.5 5.0-9.0 Urine Specific [place] 1.012 1.001-1.035 Urine Protein 3+ H Negative Urine Ketones Negative Negative Urine Blood Trace H Negative /uL Urine Nitrite Negative Negative Urine Bilirubin Negative Negative Urine Urobilinogen Normal Negative mg/dL Urine Leukocyte Esterase Negative Negative /uL Urine RBC 2 0 - 3 /hpf Urine Microscopic WBC 1 0-3 /HPF Urine Squamous Epithelial Cells None seen <5 /hpf Urine Bacteria None seen None Seen /hpf Urine Glucose Trace Normal mg/dL Assessment/Plan Assessment/Plan Hyperkalemia Anemia, unspecified Hypertension Acute on chronic renal failure Plan 1. Admit to telemetry unit 2. Breathing treatment 3. Pain control management 4. Management of fluids and electrolytes 5. Consultation for Nephrology 6. Diagnostic tests chest x-ray 7. DVT prophylaxis-on SCDs 8. Repeat labs CBC, CMP in a.m. 9. Continue with current medical management 10. Treatment plan discussed with patient and RN. Patient verbalized understanding. Plan discussed with: Patient, Other (RN) My Orders Orders - MANUEL JACINTO DNP Procedure Category Date Status Time Consistent DIET 09/06/24 Transmitted Carb(Ccho)Diabetes Dinner *Dr. Tylor Woods CONS 09/06/24 Transmitted -[place] 17:27 Amlodipine Tablet PHA 09/07/24 Transmitted (Norvasc Tablet) 10:00 Metoprolol Tartrate PHA 09/06/24 Transmitted Tablet (Lopressor Ta 22:00 Pantoprazole PHA 09/07/24 Transmitted (Protonix) 10:00 Albuterol Medneb PHA 09/06/24 Transmitted (Ventolin Medneb) 17:30 Ipratropium Medneb PHA 09/06/24 Transmitted (Atrovent Medneb) 17:30 Glucose Blood PHA 09/06/24 Transmitted (Accu-Chek Comfort 22:00 Mild Sliding Scale PHA 09/06/24 Transmitted 22:00 Dextrose 50% Syringe PHA 09/06/24 Transmitted 17:30 Admit ADMIT 09/06/24 Transmitted 17:27 Allergies [place] 09/06/24 Transmitted 17:27 Code Status CODE 09/06/24 Transmitted 17:27 Sodium Chloride Lock PHA 09/06/24 Transmitted (Saline Lock Ns) 22:00 Oxygen Per Hour RT 09/06/24 Transmitted 17:27 Hydrocodone-Acet PHA 09/06/24 Transmitted 5/325mg Tab ([place] 17:30 Ondansetron Hcl PHA 09/06/24 Transmitted (Zofran) 17:30 Docusate Sodium PHA 09/06/24 Transmitted Capsule (Colace 17:30 Complete Blood Count LAB 09/07/24 Verified 04:00 Comprehensive LAB 09/07/24 Verified Metabolic Panel 04:00 Condition: Serious [place] 09/06/24 Transmitted 17:27 Acetaminophen Tablet PHA 09/06/24 Transmitted (Tylenol Tablet) 17:30 Bedrest With Bathroom [place] 3/3/25 Transmitted Privileg 17:27 Sequential [place] 09/06/24 Transmitted Compression Device Nitroglycerin PHA 09/06/24 Transmitted Sublingual (Ntrostat 17:30 Morphine Sulfate PHA 09/06/24 Transmitted Injection 17:30 Notify Of Changes [facility] 09/06/24 Transmitted From Base 17:27 Senior Game Advisor For [facility] 09/06/24 Transmitted 24 Hours 17:27 Emergency Dysrhythmia [facility] 09/06/24 Transmitted Protocol 17:27 Rhythm Strips Once [facility] 09/06/24 Transmitted Every Shift 17:27 Oxygen By Nasal RT 09/06/24 Transmitted Cannula 17:27 Problem List: (1) Hyperkalemia (2) Anemia, unspecified (3) Hypertension (4) Acute on chronic renal failure Date of Service: Sep 06, 2024 Billing Provider: MANUEL JACINTO DNP Common Visit Codes: [id number] INP/OBS CARE (HIGH) MANUEL JACINTO DNP Sep 06, 2024 17:33
[2024-09-06] MEDS: DEXTROSE (50%) 50ML SYRG IV ONE (17:39)
[2024-09-06] MEDS: InsuLIN REG 1unit/0.01ml Soln (100units/ml) IV ONE (17:40)
[2024-09-06] MEDS: SODIUM ZIRCONIUM CYCL 10 GM PAK PO ONE (17:46)
[2024-09-06] MEDS: SODIUM BICARB 8.4% 50Meq/50ml SYR INJ IV ONE (17:47)
[2024-09-06] MEDS: FUROSEMIDE 20 MG/2 ML VIAL IV ONE (17:47)
[2024-09-06 19:41] VITALS: BP 133/80; PULSE 123; RESP 18; TEMP 98.7; O2SAT 98
[2024-09-06 19:58] VITALS: PULSE 104; RESP 16; O2SAT 99
[2024-09-06 21:13] VITALS: BP 130/70; PULSE 100; RESP 18; TEMP 98.4; O2SAT 97
[2024-09-06] MEDS: ACCU-CHEK COMFORT CURVE STRIP VI SCH (22:00)
[2024-09-06 22:01] VITALS: BP 130/70; PULSE 100; RESP 18; TEMP 98.4; O2SAT 97
[2024-09-06] MEDS: SODIUM CHLOR 0.9% PF (SALINE LOCK) 10ML VIAL/SYR IV SCH (22:21)
[2024-09-06] MEDS: METOPROLOL TARTRATE 25 MG TAB PO SCH (22:21)
[2024-09-06] MEDS: InsuLIN REG 1unit/0.01ml Soln (100units/ml) SC SCH (23:25)
[2024-09-07] VITALS (10 sets, daily range): BP systolic 118–150; BP diastolic 72–100; PULSE 71–87; RESP 17–18; TEMP 97.4–98.3; O2SAT 95–99
[2024-09-07 07:15] LABS: Basophils # (auto) 0 10 ^3/uL (0-0.2); Hematocrit 23.8 % (41.0-53.0); Lymphocytes # (auto) 1.3 10 ^3/uL (0.4-5.4); Lymphocytes % (auto) 30.5 % (10.0-50.0); Monocytes # (auto) 0.4 10 ^3/uL (0-1.3); Neutrophils # (auto) 2.4 10 ^3/uL (1.6-8.6)
[2024-09-07 07:17] LABS: Basophils % (auto) 0.5 % (0.0-2.0); Eosinophils # (auto) 0.2 10 ^3/uL (0-0.8); Eosinophils % (auto) 3.7 % (0.0-7.0); Hemoglobin 8.4 g/dL (13.5-17.5); Mean Corpuscular Hemoglobin 32.8 pg (28.0-32.0); Mean Corpuscular Hgb Conc. 35.2 g/dL (32.0-36.0); Monocytes % (auto) 9.5 % (0.0-12.0); Neutrophils % (auto) 55.8 % (37.0-80.0); Platelet Count (auto) 185 10^3/uL (140-450); Red Blood Cells 2.56 10^6/uL (4.5-5.90); Red Cell Distribution Width 13.8 % (11.8-14.3); White Blood Cell 4.4 10^3/uL (4.4-10.8)
[2024-09-07 07:25] LABS: Alanine Aminotransferase 36 U/L (7-40); Albumin 3.3 g/dL (3.2-4.8); Alkaline Phosphatase 55 U/L (46-116); Anion Gap 7 (5-15); Aspartate Aminotransferase 18 U/L (13-40); BUN/Creatinine Ratio 14.9 (10.0-20.0); Carbon Dioxide 27 mmol/L (20-31)
[2024-09-07 07:36] LABS: Bilirubin, Total 0.2 mg/dL (0.2-1.0); Blood Urea Nitrogen 36 mg/dL (9-23); Calcium 8.7 mg/dL (8.7-10.4); Chloride 112 mmol/L (98-107); Glucose 149 mg/dL (74-106); Sodium 146 mmol/L (136-145); Total Protein 5.6 g/dL (5.7-8.2)
[2024-09-07] MEDS: PANTOPRAZOLE 40 MG/10 ML VIAL INJ IV SCH (09:42)
[2024-09-07] MEDS: amLODIPine BESYLATE 5 MG TAB PO SCH (09:42)
--- NOTE | 2024-09-07 16:42 | DVHINCON2 ---
Date of service: Sep 07, 2024 Reason for Consultation MESHA History of Present Illness 29 years old male with past medical history of diabetes for the past 14 years, hypertension, dyslipidemia, Chronic kidney disease IIIb, presented with chief complaints of abnormal labs his PCP asked him to come to hospital after noticing abnormal labs k is high Past Medical History per hpi Allergies: Coded Allergies: NO KNOWN ALLERGIES (Unverified , 12/01/18) Home Meds Active Scripts Amlodipine Besylate (Amlodipine Besylate) 10 Mg Tab, 1 TAB PO DAILY for 30 Days, #30 TAB 5 Refills Prov:KVNG LAM RESIDENT 08/13/24 Ferrous Sulfate (Iron) 325 Mg Tab, 325 MG PO DAILY for 30 Days, #30 TAB Prov:KVNG LAM RESIDENT 08/13/24 Pantoprazole Sodium Sesquihydr (Protonix) 40 Mg Tab, 40 MG PO DAILY for 30 Days, #30 TAB Prov:GIA REIS RESIDENT 04/20/24 Ondansetron Odt 4MG Tab (ZOFRAN PO) 4 Mg Tb, 4 MG PO Q8HPRN PRN for 3 Days, #9 TAB ODT TAB-DISSOLVE IN MOUTH, THEN SWALLOW Prov:VERNON LAZRAO DO 02/26/23 Reported Medications Metformin Hydrochloride (Metformin Hcl) 1,000 Mg Tab, 1 TAB PO DAILY, #60 TAB 5 Refills 04/17/24 Insulin Glargine (Lantus) 100 Unit/Ml Inj, 10 UNIT SC PCHS, INJ 12/03/18 Current Medications Current Medications Medications (Trade) Dose Ordered Sig/Jorge Route PRN Reason Start Time Stop Time Status Last Admin Amlodipine Besylate (Norvasc Tablet) 5 mg DAILY PO 09/07/24 10:00 09/07/24 09:42 Metoprolol Tartrate (Lopressor Tablet) 25 mg BID PO 09/06/24 22:00 09/07/24 09:42 Pantoprazole Sodium (Protonix) 40 mg DAILY IV 09/07/24 10:00 09/07/24 09:42 Albuterol (Ventolin Medneb) 2.5 mg Q4HPRN PRN NEB SHORTNESS OF BREATH 09/06/24 17:30 Ipratropium [place] (Atrovent Medneb) 0.5 mg Q4HPRN PRN NEB SHORTNESS OF BREATH 09/06/24 17:30 Diagnostic Test (Pha) (Accu-Chek Comfort Curve T) 1 strip ACHS 09/06/24 22:00 09/07/24 12:02 Insulin Human Regular (InsuLIN R) ACHS SC 09/06/24 22:00 09/07/24 12:03 Dextrose 50 ml UD PRN IV Blood Sugar LESS THAN 60 09/06/24 17:30 Sodium Chloride (Saline Lock Ns) 10 ml Q8HR IV 09/06/24 22:00 09/07/24 14:31 Acetaminophen/ Hydrocodone Bitart ([place] 5/325MG Tab) 1 tab Q4HP PRN PO MODERATE PAIN (4-6 PAIN SCALE) 09/06/24 17:30 Ondansetron HCl (Zofran) 4 mg Q4HP PRN IV NAUSEA / VOMITING 09/06/24 17:30 Docusate Sodium (Colace Capsule) 100 mg BIDPRN PRN PO FOR CONSTIPATION 09/06/24 17:30 Acetaminophen (Tylenol Tablet) 650 mg Q6HP PRN PO PAIN SCALE 1-3 OR TEMP>100.4 09/06/24 17:30 Nitroglycerin (Ntrostat Sublingual) 0.4 mg Q5MINP PRN SL FOR CHEST PAIN 09/06/24 17:30 Morphine Sulfate 2 mg Q30M PRN IV FOR CHEST PAIN 09/06/24 17:30 Patient Own Medication 1 DAILY PO 09/08/24 10:00 Cancel Family History: Diabetes mellitus G8 MOTHER G8 FATHER Hypertension G8 MOTHER G8 FATHER Review of Systems HEENT-denies headache, denies vision changes, no hearing issue, denies neck complaints, denies throat issues Respiratory system-denies cough, denies shortness of breath Cardiovascular system-denies chest pain, denies palpitations Abdomen-denies abdominal pain, denies nausea, denies vomiting, denies constipation or diarrhea Musculoskeletal-denies swelling in the legs, denies pain in the extremities Genitourinary-denies urinary symptoms like dysuria, stream issues Neuro-denies dizziness, denies seizures Psychiatric-denies psychiatric history H&P Exam Vital Signs/I&O Vital Sign Date Time Temp Pulse Resp B/P (MAP) Pulse Ox O2 Delivery O2 Flow Rate FiO2 09/07/24 13:00 98.3 71 18 134/84 (101) 98 98.3 09/07/24 07:28 Room Air* 0 21 Intake and Output 09/06/24 09/07/24 19:00 07:00 Intake Total 50 ml 500 ml Balance 50 ml 500 ml Intake Oral 500 ml IV Total 50 ml # Voids 2 Physical Exam General-not in any distress HEENT-normocephalic, no icterus, no pallor, neck supple Respiratory-fair air entry bilateral, no rhonchi, no wheeze [id number] heard, no murmurs appreciated Abdominal-soft, nontender, nondistended Musculoskeletal-no pedal edema, no calf tenderness Genitourinary-deferred Neuro-awake alert oriented x3, Psychiatric-not agitated, cooperative, Labs/Diagnostic Data Labs/Diagnostic Data Laboratory Tests Test 09/07/24 11:48 09/07/24 06:19 09/07/24 04:52 09/06/24 22:23 Range/Units POC Glucose 164 H 133 H 252 H 70-106 mg/dl White Blood Count 4.4 4.4-10.8 10^3/uL Red Blood Count 2.56 L 4.5-5.90 10^6/uL Hemoglobin 8.4 L 13.5-17.5 g/dL Hematocrit 23.8 #L 41.0-53.0 % Mean Corpuscular Volume 93.0 80.0-100.0 fL Mean Corpuscular Hemoglobin 32.8 H 28.0-32.0 pg Mean Corpuscular Hemoglobin Concent 35.2 32.0-36.0 g/dL Red Cell Distribution Width 13.8 11.8-14.3 % Platelet Count 185 140-450 10^3/uL Mean Platelet Volume 8.7 6.9-10.8 fL Neutrophils (%) (Auto) 55.8 37.0-80.0 % Lymphocytes (%) (Auto) 30.5 10.0-50.0 % Monocytes (%) (Auto) 9.5 0.0-12.0 % Eosinophils (%) (Auto) 3.7 0.0-7.0 % Basophils (%) (Auto) 0.5 0.0-2.0 % Neutrophils # (Auto) 2.4 1.6-8.6 10 ^3/uL Lymphocytes # (Auto) 1.3 0.4-5.4 10 ^3/uL Monocytes # (Auto) 0.4 0-1.3 10 ^3/uL Eosinophils # (Auto) 0.2 0-0.8 10 ^3/uL Basophils # (Auto) 0 0-0.2 10 ^3/uL Nucleated Red Blood Cells 0.0 % Sodium Level 146 H 136-145 mmol/L Potassium Level 5.0 3.5-5.1 mmol/L Chloride Level 112 H 98-107 mmol/L Carbon Dioxide Level 27 20-31 mmol/L Anion Gap 7 5-15 Blood Urea Nitrogen 36 H 9-23 mg/dL Creatinine 2.41 H 0.700-1.30 mg/dL Glomerular Filtration Rate Calc 36 >90 mL/min BUN/Creatinine Ratio 14.9 10.0-20.0 Serum Glucose 149 H 74-106 mg/dL Calcium Level 8.7 8.7-10.4 mg/dL Total Bilirubin 0.2 0.2-1.0 mg/dL Aspartate Amino Transferase (AST) 18 13-40 U/L Alanine Aminotransferase (ALT) 36 7-40 U/L Alkaline Phosphatase 55 46-116 U/L Total Protein 5.6 L 5.7-8.2 g/dL Albumin 3.3 3.2-4.8 g/dL Test 09/06/24 20:31 09/06/24 17:16 09/06/24 15:28 09/06/24 14:50 Range/Units Potassium Level 4.5 5.7 *H 3.5-5.1 mmol/L POC Glucose 138 H 70-106 mg/dl White Blood Count 5.2 4.4-10.8 10^3/uL Red Blood Count 2.96 L 4.5-5.90 10^6/uL Hemoglobin 9.4 L 13.5-17.5 g/dL Hematocrit 27.8 L 41.0-53.0 % Mean Corpuscular Volume 93.8 80.0-100.0 fL Mean Corpuscular Hemoglobin 31.9 28.0-32.0 pg Mean Corpuscular Hemoglobin Concent 34.0 32.0-36.0 g/dL Red Cell Distribution Width 13.9 11.8-14.3 % Platelet Count 235 140-450 10^3/uL Mean Platelet Volume 8.3 6.9-10.8 fL Neutrophils (%) (Auto) 62.0 37.0-80.0 % Lymphocytes (%) (Auto) 25.4 10.0-50.0 % Monocytes (%) (Auto) 7.1 0.0-12.0 % Eosinophils (%) (Auto) 4.8 0.0-7.0 % Basophils (%) (Auto) 0.7 0.0-2.0 % Neutrophils # (Auto) 3.2 1.6-8.6 10 ^3/uL Lymphocytes # (Auto) 1.3 0.4-5.4 10 ^3/uL Monocytes # (Auto) 0.4 0-1.3 10 ^3/uL Eosinophils # (Auto) 0.2 0-0.8 10 ^3/uL Basophils # (Auto) 0 0-0.2 10 ^3/uL Nucleated Red Blood Cells 0.0 % Sodium Level 143 136-145 mmol/L Chloride Level 111 H 98-107 mmol/L Carbon Dioxide Level 27 20-31 mmol/L Anion Gap 5 5-15 Blood Urea Nitrogen 35 H 9-23 mg/dL Creatinine 2.66 H 0.700-1.30 mg/dL Glomerular Filtration Rate Calc 32 >90 mL/min BUN/Creatinine Ratio 13.2 10.0-20.0 Serum Glucose 139 H 74-106 mg/dL Calcium Level 8.9 8.7-10.4 mg/dL Total Bilirubin 0.3 0.2-1.0 mg/dL Aspartate Amino Transferase (AST) 29 13-40 U/L Alanine Aminotransferase (ALT) 46 H 7-40 U/L Alkaline Phosphatase 71 46-116 U/L B-Type Natriuretic Peptide 13.00 0-100 pg/mL Total Protein 6.5 5.7-8.2 g/dL Albumin 3.9 3.2-4.8 g/dL Urine Color Light-yellow Yellow Urine Clarity Clear Clear Urine pH 6.5 5.0-9.0 Urine Specific [place] 1.012 1.001-1.035 Urine Protein 3+ H Negative Urine Ketones Negative Negative Urine Blood Trace H Negative /uL Urine Nitrite Negative Negative Urine Bilirubin Negative Negative Urine Urobilinogen Normal Negative mg/dL Urine Leukocyte Esterase Negative Negative /uL Urine RBC 2 0 - 3 /hpf Urine Microscopic WBC 1 0-3 /HPF Urine Squamous Epithelial Cells None seen <5 /hpf Urine Bacteria None seen None Seen /hpf Urine Glucose Trace Normal mg/dL Test 09/06/24 14:44 Range/Units POC Glucose 127 H 70-106 mg/dl Assessment Acute kidney injury on Chronic kidney disease IIIb likely hemodynamic mediated Hyperkalemia Underlying diabetic nephropathy Hypertension Insulin-dependent diabetes Recommendations Quantify proteinuria check U PCR Kidney ultrasound recently done mild right hydronephrosis-----recommend urology evaluation as outpatient Lokelma 10 g p.o. once daily continue even after discharge Low-potassium diet Outpatient Nephrology follow-up after discharge Check LDH Reviewed vital signs, lab work, imaging studies, medications, microbiology, other physician recommendations Total time spent 70 minutes More than 50% of the time spent providing direct [id number] care . Thank you for allowing me to participate in the care of your patient. Plan discussed with: Patient SHELLY DRISCOLL MD Sep 07, 2024 16:42
--- NOTE | 2024-09-07 17:25 | DVHPN2 ---
Subjective Seen and examined at bedside, monitor labs. Changes from previous H/P or p: No Changes Eyes: No Pain, No Vision change, No Conjunctivae inflammation, No Eyelid inflammation, No Other, No Redness ENT: No Ear pain, No Ear discharge, No Nose pain, No Nose discharge, No Nose congestion, No Mouth pain, No Mouth swelling, No Throat pain, No Throat swelling, No Other Cardiovascular: No Chest Pain, No Palpitations, No Orthopnea, No Paroxysmal Noc. Dyspnea, No Edema, No Lt Headedness, No Other Respiratory: No Cough, No Dry, No Shortness of breath, No SOB with excertion, No Wheezing, No Hemoptysis, No Pleuritic Pain, No Sputum, No Other Gastrointestinal: No Nausea, No Vomiting, No Abdominal Pain, No Diarrhea, No Constipation, No Melena, No Hematochezia, No Other Genitourinary: No Dysuria, No Frequency, No Incontinence, No Hematuria, No Retention, No Other Musculoskeletal: No other, No neck pain, No shoulder pain, No arm pain, No back pain, No hand pain, No leg pain, No foot pain Skin: No Rash, No Lesions, No Jaundice, No Bruising, No Other Objective Vitals Vital Signs Date Time Temp Pulse Resp B/P (MAP) Pulse Ox O2 Delivery O2 Flow Rate FiO2 09/07/24 13:00 98.3 71 18 134/84 (101) 98 98.3 09/07/24 07:28 Room Air* 0 21 Intake/Output Intake and Output 09/07/24 07:00 Intake Total 550 ml Balance 550 ml Intake Oral 500 ml IV Total 50 ml # Voids 2 Exam Gen: in bed NAD Cvs: N S1/S2, RRR Resp: BLAE Abd: Soft, NT, BS+ Security Professional: AAO x 4 Medications Current Medications Medications Dose Ordered Sig/Jorge Route Start Time Stop Time Status Last Admin Dose Admin Amlodipine Besylate 5 mg DAILY PO 09/07/24 10:00 09/07/24 09:42 5 MG Metoprolol Tartrate 25 mg BID PO 09/06/24 22:00 09/07/24 09:42 25 MG Pantoprazole Sodium 40 mg DAILY IV 09/07/24 10:00 09/07/24 09:42 40 MG Albuterol 2.5 mg Q4HPRN PRN NEB 09/06/24 17:30 Ipratropium [place] 0.5 mg Q4HPRN PRN NEB 09/06/24 17:30 Diagnostic Test (Pha) 1 strip ACHS 09/06/24 22:00 09/07/24 17:03 1 STRIP Insulin Human Regular ACHS SC 09/06/24 22:00 09/07/24 17:05 2 UNITS Dextrose 50 ml UD PRN IV 09/06/24 17:30 Sodium Chloride 10 ml Q8HR IV 09/06/24 22:00 09/07/24 14:31 10 ML Acetaminophen/ Hydrocodone Bitart 1 tab Q4HP PRN PO 09/06/24 17:30 Ondansetron HCl 4 mg Q4HP PRN IV 09/06/24 17:30 Docusate Sodium 100 mg BIDPRN PRN PO 09/06/24 17:30 Acetaminophen 650 mg Q6HP PRN PO 09/06/24 17:30 Nitroglycerin 0.4 mg Q5MINP PRN SL 09/06/24 17:30 Morphine Sulfate 2 mg Q30M PRN IV 09/06/24 17:30 Patient Own Medication 1 DAILY PO 09/08/24 10:00 Cancel Laboratory Results Laboratory Tests 09/07/24 04:52 Chemistry Test 09/07/24 04:52 Albumin 3.3 g/dL (3.2-4.8) Calcium Level 8.7 mg/dL (8.7-10.4) Total Protein 5.6 g/dL (5.7-8.2) L LFT Test 09/07/24 04:52 Alanine Aminotransferase (ALT) 36 U/L (7-40) Alkaline Phosphatase 55 U/L (46-116) Aspartate Amino Transferase (AST) 18 U/L (13-40) Total Bilirubin 0.2 mg/dL (0.2-1.0) Urinalysis Test 09/06/24 14:50 Urine Color Light-yellow (Yellow) Urine Clarity Clear (Clear) Urine pH 6.5 (5.0-9.0) Urine Specific [place] 1.012 (1.001-1.035) Urine Protein 3+ (Negative) H Urine Ketones Negative (Negative) Urine Blood Trace /uL (Negative) H Urine Nitrite Negative (Negative) Urine Bilirubin Negative (Negative) Urine Urobilinogen Normal mg/dL (Negative) Urine Leukocyte Esterase Negative /uL (Negative) Urine RBC 2 /hpf (0 - 3) Urine Microscopic WBC 1 /HPF (0-3) Urine Squamous Epithelial Cells None seen /hpf (<5) Urine Bacteria None seen /hpf (None Seen) Urine Glucose Trace mg/dL (Normal) Assessment/Plan Assessment/Plan # Hyperkalemia - Monitor - Patient is NOT on any ACEi or ARB # MESHA due to ATN??? - Nephro cx # DM2 A1c 6.0 # Hypertensive Heart Disease - Monitor and adjust meds as needed Plan discussed with: Patient My Orders Orders - TOVA ZHAO MD Procedure Category Date Status Time D5 W Sodium PHA 09/07/24 Verified Bicarbonate Drip 17:30 Basic Metabolic Panel LAB 09/08/24 Verified 04:00 Date of Service: Sep 07, 2024 Billing Provider: TOVA ZHAO MD Common Visit Codes: [id number] INP/OBS CARE(HIGH) TOVA ZHAO MD Sep 07, 2024 17:25
[2024-09-07] MEDS: SODIUM BICARB 50mEq/50ml Vial 75 ML in D5W 5% 1,000 ML IV ONE (18:20)
[2024-09-07 19:50] LABS: Creatinine, Urine 87.05 mg/dL (30.0-125.0)
[2024-09-07 19:54] LABS: Protein, Urine 496.4 mg/dL (1-14)
[2024-09-07] MEDS: SODIUM ZIRCONIUM CYCL 10 GM PAK PO ONE (22:31)
[2024-09-08] VITALS (13 sets, daily range): BP systolic 121–148; BP diastolic 88–96; PULSE 70–87; RESP 16–19; TEMP 97.7–98.2; O2SAT 96–100
[2024-09-08 06:22] LABS: Chloride 107 mmol/L (98-107); Sodium 142 mmol/L (136-145)
[2024-09-08 06:23] LABS: Anion Gap 5 (5-15); Carbon Dioxide 30 mmol/L (20-31)
[2024-09-08 06:29] LABS: BUN/Creatinine Ratio 14.5 (10.0-20.0); Blood Urea Nitrogen 32 mg/dL (9-23); Glucose 143 mg/dL (74-106); Potassium 5.5 mmol/L (3.5-5.1)
[2024-09-08] MEDS ORDERED: DASATINIB 100 MG PO SCH (10:00)
[2024-09-08] MEDS: FUROSEMIDE 20 MG/2 ML VIAL IV SCH (11:04)
[2024-09-08] MEDS: SODIUM ZIRCONIUM CYCL 10 GM PAK PO SCH (11:04)
[2024-09-08] MEDS: ALBUTEROL SULF 2.5 MG/0.5ML(0.5%) NEB SOLN NEB ONE (12:06)
[2024-09-08] MEDS ORDERED: SODI5PAK PO (16:53)
--- NOTE | 2024-09-08 16:56 | DVHDS2 ---
Discharge Summary Date of Admission Sep 06, 2024 at 17:27 Date of Discharge: Sep 08, 2024 Admitting Diagnosis Hyperkalemia Labs/Diagnostic Data: Laboratory Results Test 09/08/24 13:30 09/08/24 11:10 09/08/24 05:30 09/07/24 17:41 Potassium Level 4.4 mmol/L (3.5-5.1) POC Glucose 192 mg/dl (70-106) Sodium Level 142 mmol/L (136-145) Chloride Level 107 mmol/L (98-107) Carbon Dioxide Level 30 mmol/L (20-31) Anion Gap 5 (5-15) Blood Urea Nitrogen 32 mg/dL (9-23) Creatinine 2.21 mg/dL (0.700-1.30) Glomerular Filtration Rate Calc 40 mL/min (>90) BUN/Creatinine Ratio 14.5 (10.0-20.0) Serum Glucose 143 mg/dL (74-106) Calcium Level 9.0 mg/dL (8.7-10.4) Urine Creatinine 87.05 mg/dL (30.0-125.0) Urine Microalbumin 2968.0 mg/L (<30.0) Urine Total Protein 496.4 mg/dL (1-14) Test 09/07/24 04:52 09/06/24 15:28 09/06/24 14:50 White Blood Count 4.4 10^3/uL (4.4-10.8) Red Blood Count 2.56 10^6/uL (4.5-5.90) Hemoglobin 8.4 g/dL (13.5-17.5) Hematocrit 23.8 % (41.0-53.0) Mean Corpuscular Volume 93.0 fL (80.0-100.0) Mean Corpuscular Hemoglobin 32.8 pg (28.0-32.0) Mean Corpuscular Hemoglobin Concent 35.2 g/dL (32.0-36.0) Red Cell Distribution Width 13.8 % (11.8-14.3) Platelet Count 185 10^3/uL (140-450) Mean Platelet Volume 8.7 fL (6.9-10.8) Neutrophils (%) (Auto) 55.8 % (37.0-80.0) Lymphocytes (%) (Auto) 30.5 % (10.0-50.0) Monocytes (%) (Auto) 9.5 % (0.0-12.0) Eosinophils (%) (Auto) 3.7 % (0.0-7.0) Basophils (%) (Auto) 0.5 % (0.0-2.0) Neutrophils # (Auto) 2.4 10 ^3/uL (1.6-8.6) Lymphocytes # (Auto) 1.3 10 ^3/uL (0.4-5.4) Monocytes # (Auto) 0.4 10 ^3/uL (0-1.3) Eosinophils # (Auto) 0.2 10 ^3/uL (0-0.8) Basophils # (Auto) 0 10 ^3/uL (0-0.2) Nucleated Red Blood Cells 0.0 % Total Bilirubin 0.2 mg/dL (0.2-1.0) Aspartate Amino Transferase (AST) 18 U/L (13-40) Alanine Aminotransferase (ALT) 36 U/L (7-40) Alkaline Phosphatase 55 U/L (46-116) Lactate Dehydrogenase 217 U/L (120-246) B-Type Natriuretic Peptide 13.00 pg/mL (0-100) Urine Color Light-yellow (Yellow) Urine Clarity Clear (Clear) Urine pH 6.5 (5.0-9.0) Urine Specific [place] 1.012 (1.001-1.035) Urine Protein 3+ (Negative) Urine Ketones Negative (Negative) Urine Blood Trace /uL (Negative) Urine Nitrite Negative (Negative) Urine Bilirubin Negative (Negative) Urine Urobilinogen Normal mg/dL (Negative) Urine Leukocyte Esterase Negative /uL (Negative) Urine RBC 2 /hpf (0 - 3) Urine Microscopic WBC 1 /HPF (0-3) Urine Squamous Epithelial Cells None seen /hpf (<5) Urine Bacteria None seen /hpf (None Seen) Urine Glucose Trace mg/dL (Normal) Other Laboratory Tests 09/08/24 13:30 09/08/24 05:30 09/07/24 04:52 Brief Hx & Hospital Course: 29 years old male with past medical history of diabetes for the past 14 years, hypertension, dyslipidemia, Chronic kidney disease IIIb, presented with chief complaints of abnormal labs his PCP asked him to come to hospital after noticing abnormal labs potassium is high. Patient will be discharged home with Lokelma. Condition at Discharge: Stable Final Diagnosis/Problems List # Hyperkalemia - Lokelma # MESHA due to ATN??? - Nephro cx # DM2 A1c 6.0 # Hypertensive Heart Disease - Monitor and adjust meds as needed Discharge Disposition: Home Discharge Instruct/Medications Diet: Renal Activity: Light activity Follow Up/Referral: PCP in 1 week BMP in 3-5 days with PCP Medications: Lokelma Discharge Statement: "Patient was advised to return to the ER or call 911 if any headaches, dizziness, shortness of breath, chest pain, abdominal pain, bleeding, fevers, or worsening of medical condition. Patient was counseled about treatment plan, medications, possible side effects, patientverbalized understanding. All questions were answered to the best of my ability. This discharge took greater then 30 minutes in planning, reviewing documentation, counseling the patient, and discussing with other team members." ASSESSMENT ASSESSMENT Assessment Date of Service: Sep 08, 2024 Billing Provider: TOVA ZHAO MD Common Visit Codes: [id number] DISCH DAY >30min TOVA ZHAO MD Sep 08, 2024 16:56
--- NOTE | 2024-09-08 17:35 | DVHPN2 ---
Progress Note Date Seen: Sep 08, 2024 Medical Necessity Reason Pt with a Central, PICC or Fol: No Subjective Patient reports: No new complaints Review of Systems: HEENT:Normal, CVS:Normal, RESPIRATORY:Normal, GI:Normal, :Normal, MSK:Normal, NEURO:Normal Objective vital signs Vital Sign Date Time Temp Pulse Resp B/P (MAP) Pulse Ox O2 Delivery O2 Flow Rate FiO2 09/08/24 17:00 98.0 87 19 148/96 (113) 96 98.0 09/08/24 12:06 Room Air 0.0 09/08/24 12:06 21 Total Intake and Output 09/07/24 09/07/24 09/08/24 15:00 23:00 07:00 Intake Total 400 ml 2225 ml Balance 400 ml 2225 ml medications Current Medications Medications Dose Ordered Sig/Jorge Route Start Time Stop Time Status Last Admin Dose Admin Amlodipine Besylate 5 mg DAILY PO 09/07/24 10:00 09/08/24 09:12 5 MG Metoprolol Tartrate 25 mg BID PO 09/06/24 22:00 09/08/24 09:11 25 MG Pantoprazole Sodium 40 mg DAILY IV 09/07/24 10:00 09/08/24 09:10 40 MG Albuterol 2.5 mg Q4HPRN PRN NEB 09/06/24 17:30 Ipratropium [place] 0.5 mg Q4HPRN PRN NEB 09/06/24 17:30 Diagnostic Test (Pha) 1 strip ACHS 09/06/24 22:00 09/08/24 16:58 1 STRIP Insulin Human Regular ACHS SC 09/06/24 22:00 09/08/24 16:58 4 UNITS Dextrose 50 ml UD PRN IV 09/06/24 17:30 Sodium Chloride 10 ml Q8HR IV 09/06/24 22:00 09/08/24 14:01 10 ML Acetaminophen/ Hydrocodone Bitart 1 tab Q4HP PRN PO 09/06/24 17:30 Ondansetron HCl 4 mg Q4HP PRN IV 09/06/24 17:30 Docusate Sodium 100 mg BIDPRN PRN PO 09/06/24 17:30 Acetaminophen 650 mg Q6HP PRN PO 09/06/24 17:30 Nitroglycerin 0.4 mg Q5MINP PRN SL 09/06/24 17:30 Morphine Sulfate 2 mg Q30M PRN IV 09/06/24 17:30 Patient Own Medication 1 DAILY PO 09/08/24 10:00 Cancel Zirconium Oxide 10 gm DAILY PO 09/08/24 10:00 09/08/24 11:04 10 GM Furosemide 20 mg DAILY IV 09/08/24 10:00 09/08/24 11:04 20 MG Examination: GENERAL:Normal, HEENT:Normal, NECK:Normal, LUNGS:Normal, CVS:Normal, ABDOMEN:Normal, MSK:Normal, SKIN:Normal, NEURO:Normal, :Normal laboratory and microbiology Laboratory Tests 09/08/24 13:30 09/08/24 05:30 09/07/24 04:52 Test 09/08/24 05:30 Range/Units Serum Glucose 143 H 74-106 mg/dL Microbiology Date/Time Source Procedure Growth Status 09/07/24 06:30 Nose MRSA Screen - Final Complete Problem List/Assessment/Plan Problem List/Assessment/Plan Acute kidney injury on Chronic kidney disease IIIb likely hemodynamic mediated 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 once daily continue even after discharge Low-potassium diet educated Outpatient Nephrology follow-up after discharge negative LDH myeloma panel as ordered check renin /kylah --outpt follow up labs Plan discussed with: Patient My Orders My Orders Orders - SHELLY DRISCOLL MD Procedure Category Date Status Time Protein LAB 09/08/24 In Process Electrophoresis Serum 04:00 Immunofixation Serum LAB 09/08/24 In Process 04:00 [place] Lambda Lite LAB 09/08/24 In Process Chain Free S 04:00 Sodium Zirconium PHA 09/08/24 In Process Cyclosilicate 10:00 Furosemide Injection PHA 09/08/24 In Process (Lasix Injection) 10:00 Consistent DIET 09/08/24 Transmitted Carb(Ccho)Diabetes Breakfast SHELLY DRISCOLL MD Sep 08, 2024 17:35
[2024-09-09] VITALS (11 sets, daily range): BP systolic 121–129; BP diastolic 50–87; PULSE 66–102; RESP 14–19; TEMP 36.9; O2SAT 73–100
[2024-09-09 08:06] LABS: Immunoglobulin A 113 mg/dL (90-386); Immunoglobulin G, Serum 991 mg/dL (603-1613); Immunoglobulin M 101 mg/dL (20-172)
[2024-09-09 10:42] LABS: Kappa Lite Chain Free Serum 55.6 mg/L (3.3-19.4)
[2024-09-09 12:03] LABS: Chloride 105 mmol/L (98-107); Sodium 139 mmol/L (136-145)
[2024-09-09 12:04] LABS: Anion Gap 3 (5-15); Carbon Dioxide 31 mmol/L (20-31)
[2024-09-09 12:05] LABS: Calcium 9.3 mg/dL (8.7-10.4)
[2024-09-09 12:10] LABS: BUN/Creatinine Ratio 14.6 (10.0-20.0)
[2024-09-09 12:13] LABS: Blood Urea Nitrogen 36 mg/dL (9-23); Glucose 157 mg/dL (74-106)
[2024-09-09] MEDS: SODIUM ZIRCONIUM CYCL 10 GM PAK PO ONE (12:58)
[2024-09-09] MEDS: ALBUTEROL SULF 2.5 MG/0.5ML(0.5%) NEB SOLN NEB ONE (13:26)
[2024-09-09] MEDS: SODIUM CHLORIDE 0.9% 1,000 ML IV ONE (13:39)
[2024-09-09] MEDS: FLUDROCORTISONE ACETATE 0.1 MG TAB PO ONE (13:50)
[2024-09-09] MEDS: CALCIUM GLUC 1,000mg/50ml-NS 50 ML IV ONE (13:51)
[2024-09-09] MEDS: SODIUM ZIRCONIUM CYCL 10 GM PAK PO SCH (14:00)
--- NOTE | 2024-09-09 14:02 | DVHPN2 ---
Progress Note Date Seen: Sep 09, 2024 Medical Necessity Reason Pt with a Central, PICC or Fol: No Subjective Patient reports: No new complaints Review of Systems: HEENT:Normal, CVS:Normal, RESPIRATORY:Normal, GI:Normal, :Normal, MSK:Normal, NEURO:Normal Objective vital signs Vital Sign Date Time Temp Pulse Resp B/P (MAP) Pulse Ox O2 Delivery O2 Flow Rate FiO2 09/09/24 13:38 83 18 100 09/09/24 13:26 Room Air 0.0 09/09/24 13:26 21 09/09/24 12:30 98.4 121/77 (92) 98.4 Total Intake and Output 09/08/24 09/08/24 09/09/24 15:00 23:00 07:00 Intake Total 754 ml 250 ml Output Total 0 ml Balance 754 ml 250 ml medications Current Medications Medications Dose Ordered Sig/Jorge Route Start Time Stop Time Status Last Admin Dose Admin Amlodipine Besylate 5 mg DAILY PO 09/07/24 10:00 09/09/24 09:28 5 MG Metoprolol Tartrate 25 mg BID PO 09/06/24 22:00 09/09/24 09:28 25 MG Pantoprazole Sodium 40 mg DAILY IV 09/07/24 10:00 09/09/24 09:27 40 MG Diagnostic Test (Pha) 1 strip ACHS 09/06/24 22:00 09/09/24 11:30 1 STRIP Insulin Human Regular ACHS SC 09/06/24 22:00 09/09/24 11:30 2 UNITS Dextrose 50 ml UD PRN IV 09/06/24 17:30 Sodium Chloride 10 ml Q8HR IV 09/06/24 22:00 09/09/24 06:05 10 ML Acetaminophen/ Hydrocodone Bitart 1 tab Q4HP PRN PO 09/06/24 17:30 Ondansetron HCl 4 mg Q4HP PRN IV 09/06/24 17:30 Docusate Sodium 100 mg BIDPRN PRN PO 09/06/24 17:30 Acetaminophen 650 mg Q6HP PRN PO 09/06/24 17:30 Nitroglycerin 0.4 mg Q5MINP PRN SL 09/06/24 17:30 Morphine Sulfate 2 mg Q30M PRN IV 09/06/24 17:30 Patient Own Medication 1 DAILY PO 09/08/24 10:00 Cancel Furosemide 20 mg DAILY IV 09/08/24 10:00 09/09/24 09:29 20 MG Zirconium Oxide 10 gm TID PO 09/09/24 14:00 09/11/24 06:01 Fludrocortisone Acetate 0.1 mg DAILY PO 09/10/24 10:00 Empaglifozin 10 mg DAILY PO 09/10/24 10:00 Examination: GENERAL:Normal, HEENT:Normal, NECK:Normal, LUNGS:Normal, CVS:Normal, ABDOMEN:Normal, MSK:Normal, SKIN:Normal, NEURO:Normal, :Normal laboratory and microbiology Laboratory Tests 09/09/24 11:11 09/07/24 04:52 Test 09/09/24 11:11 Range/Units Serum Glucose 157 H 74-106 mg/dL Microbiology Date/Time Source Procedure Growth Status 09/08/24 18:44 Nose MRSA Screen - Final Complete Problem List/Assessment/Plan Problem List/Assessment/Plan Acute kidney injury on Chronic kidney disease IIIb likely hemodynamic mediated Hyperkalemia probably sec to type 4RTA ? Underlying diabetic nephropathy Hypertension Insulin-dependent diabetes for >15 years nephrotic raange proteinuria likeley sec to DM Recommendations trial of fludrocortisone low dose medical management of hyperkalemia as ordered reports eating bananas and potatoes daily---recommend to stop ,,low k diet Kidney ultrasound recently done mild right hydronephrosis-----recommend urology evaluation as outpatient Lokelma 10 g p.o. once daily continue after discharge Low-potassium diet educated negative LDH myeloma panel as ordered check renin /kylah -- Plan discussed with: Patient My Orders My Orders Orders - SHELLY DRISCOLL MD Procedure Category Date Status Time Renin Activity And LAB 09/08/24 In Process Aldosterone 17:35 Calcium Gluc PHA 09/09/24 In Process 1,000mg/50ml-Ns 13:30 Sodium Zirconium PHA 09/09/24 In Process Cyclosilicate 14:00 Sodium Chloride 0.9% PHA 09/09/24 In Process 13:30 Fludrocortisone PHA 09/10/24 In Process Tablet (Florinef 10:00 Empagliflozin PHA 09/10/24 In Process (Jardiance) 10:00 Basic Metabolic Panel LAB 09/10/24 Verified 05:00 Basic Metabolic Panel LAB 09/11/24 Verified 05:00 Basic Metabolic Panel LAB 09/12/24 Verified 05:00 Basic Metabolic Panel LAB 09/13/24 Verified 05:00 Basic Metabolic Panel LAB 09/14/24 Verified 05:00 Basic Metabolic Panel LAB 09/15/24 Verified 05:00 Basic Metabolic Panel LAB 09/16/24 Verified 05:00 SHELLY DRISCOLL MD Sep 09, 2024 14:02
[2024-09-09] MEDS ORDERED: FLU01T PO (15:39)
[2024-09-09] MEDS ORDERED: SODI5PAK PO (15:39)
--- NOTE | 2024-09-09 15:41 | DVHPN2 ---
Subjective Seen and examined at bedside, DC with Anselmo HERNANDEZ. See [employer] [facility] in 2-3 days for BMP. Needs to see Dr. Navarrete upon discharge Changes from previous H/P or p: No Changes Eyes: No Pain, No Vision change, No Conjunctivae inflammation, No Eyelid inflammation, No Other, No Redness ENT: No Ear pain, No Ear discharge, No Nose pain, No Nose discharge, No Nose congestion, No Mouth pain, No Mouth swelling, No Throat pain, No Throat swelling, No Other Cardiovascular: No Chest Pain, No Palpitations, No Orthopnea, No Paroxysmal Noc. Dyspnea, No Edema, No Lt Headedness, No Other Respiratory: No Cough, No Dry, No Shortness of breath, No SOB with excertion, No Wheezing, No Hemoptysis, No Pleuritic Pain, No Sputum, No Other Gastrointestinal: No Nausea, No Vomiting, No Abdominal Pain, No Diarrhea, No Constipation, No Melena, No Hematochezia, No Other Genitourinary: No Dysuria, No Frequency, No Incontinence, No Hematuria, No Retention, No Other Musculoskeletal: No other, No neck pain, No shoulder pain, No arm pain, No back pain, No hand pain, No leg pain, No foot pain Skin: No Rash, No Lesions, No Jaundice, No Bruising, No Other Objective Vitals Vital Signs Date Time Temp Pulse Resp B/P (MAP) Pulse Ox O2 Delivery O2 Flow Rate FiO2 09/09/24 15:28 36.9 94 18 73 09/09/24 13:26 Room Air 0.0 09/09/24 13:26 21 09/09/24 12:30 121/77 (92) Intake/Output Intake and Output 09/09/24 07:00 Intake Total 1004 ml Output Total 0 ml Balance 1004 ml Intake Oral 1004 ml Output Stool Total 0 ml # Voids 7 # Bowel Movements 1 Exam Gen: in bed NAD Cvs: N S1/S2, RRR Resp: BLAE Abd: Soft, NT, BS+ 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 x 4 Medications Current Medications Medications Dose Ordered Sig/Jorge Route Start Time Stop Time Status Last Admin Dose Admin Amlodipine Besylate 5 mg DAILY PO 09/07/24 10:00 09/09/24 09:28 5 MG Metoprolol Tartrate 25 mg BID PO 09/06/24 22:00 09/09/24 09:28 25 MG Pantoprazole Sodium 40 mg DAILY IV 09/07/24 10:00 09/09/24 09:27 40 MG Diagnostic Test (Pha) 1 strip ACHS 09/06/24 22:00 09/09/24 11:30 1 STRIP Insulin Human Regular ACHS SC 09/06/24 22:00 09/09/24 11:30 2 UNITS Dextrose 50 ml UD PRN IV 09/06/24 17:30 Sodium Chloride 10 ml Q8HR IV 09/06/24 22:00 09/09/24 06:05 10 ML Acetaminophen/ Hydrocodone Bitart 1 tab Q4HP PRN PO 09/06/24 17:30 Ondansetron HCl 4 mg Q4HP PRN IV 09/06/24 17:30 Docusate Sodium 100 mg BIDPRN PRN PO 09/06/24 17:30 Acetaminophen 650 mg Q6HP PRN PO 09/06/24 17:30 Nitroglycerin 0.4 mg Q5MINP PRN SL 09/06/24 17:30 Morphine Sulfate 2 mg Q30M PRN IV 09/06/24 17:30 Patient Own Medication 1 DAILY PO 09/08/24 10:00 Cancel Furosemide 20 mg DAILY IV 09/08/24 10:00 09/09/24 09:29 20 MG Zirconium Oxide 10 gm TID PO 09/09/24 14:00 09/11/24 06:01 Fludrocortisone Acetate 0.1 mg DAILY PO 09/10/24 10:00 Empaglifozin 10 mg DAILY PO 09/10/24 10:00 Laboratory Results Laboratory Tests 09/07/24 04:52 09/09/24 11:11 09/09/24 14:55 Chemistry Test 09/09/24 11:11 Calcium Level 9.3 mg/dL (8.7-10.4) Urinalysis Test 09/06/24 14:50 09/07/24 17:41 Urine Color Light-yellow (Yellow) Urine Clarity Clear (Clear) Urine pH 6.5 (5.0-9.0) Urine Specific [place] 1.012 (1.001-1.035) Urine Protein 3+ (Negative) H Urine Ketones Negative (Negative) Urine Blood Trace /uL (Negative) H Urine Nitrite Negative (Negative) Urine Bilirubin Negative (Negative) Urine Urobilinogen Normal mg/dL (Negative) Urine Leukocyte Esterase Negative /uL (Negative) Urine RBC 2 /hpf (0 - 3) Urine Microscopic WBC 1 /HPF (0-3) Urine Squamous Epithelial Cells None seen /hpf (<5) Urine Bacteria None seen /hpf (None Seen) Urine Glucose Trace mg/dL (Normal) Urine Creatinine 87.05 mg/dL (30.0-125.0) Urine Microalbumin 2968.0 mg/L (<30.0) H Urine Total Protein 496.4 mg/dL (1-14) H Microbiology Microbiology Date/Time Source Procedure Growth Status 09/08/24 18:44 Nose MRSA Screen - Final Complete Assessment/Plan Assessment/Plan # Hyperkalemia- resolved - Monitor - Patient is NOT on any ACEi or ARB - Lokelma # MESHA due to ATN??? - Nephro cx # DM2 A1c 6.0 # Hypertensive Heart Disease - Monitor and adjust meds as needed Plan discussed with: Patient My Orders Orders - TOVA ZHAO MD Procedure Category Date Status Time Pharmacy [facility] 09/09/24 In Process Clarification: 12:44 Date of Service: Sep 09, 2024 Billing Provider: TOVA ZHAO MD Common Visit Codes: [id number] INP/OBS CARE(MOD) TOVA ZHAO MD Sep 09, 2024 15:41
[2024-09-10 06:13] LABS: Albumin 2.7 g/dL (2.9-4.4); Alpha-1-Globulin 0.2 g/dL (0.0-0.4); Alpha-2-Globulin 0.8 g/dL (0.4-1.0); Globulin Total 2.9 g/dL (2.2-3.9); Protein Total Serum 5.6 g/dL (6.0-8.5)
[2024-09-10] MEDS ORDERED: FLUDROCORTISONE ACETATE 0.1 MG TAB PO SCH (10:00)
[2024-09-10] MEDS ORDERED: SODIUM ZIRCONIUM CYCL 10 GM PAK PO SCH (10:00)
[2024-09-10] MEDS ORDERED: EMPAGLIFLOZIN 10 MG TAB PO SCH (10:00)
== END 2024-09-09 16:35 | disposition home or self-care (01) | DRG 425 ==
LOC: ER 14:12 → OVERFLOW 17:27 → TELE-WESTW 21:13
PROVIDERS: ADMIT Internal Medicine; ATTEND Internal Medicine
DX: E87.5 Hyperkalemia (principal); N17.0 Acute kidney failure with tubular necrosis; E11.22 Type 2 diabetes mellitus with diabetic chronic kidney disease; I13.10 Hypertensive heart and chronic kidney disease without heart failure, with stage 1 through stage 4 chronic kidney disease, or unspecified chronic kidney disease; D64.9 Anemia, unspecified; E78.5 Hyperlipidemia, unspecified; K21.9 Gastro-esophageal reflux disease without esophagitis; N18.32 Chronic kidney disease, stage 3b; Z79.4 Long term (current) use of insulin; Z87.891 Personal history of nicotine dependence; Z79.899 Other long term (current) drug therapy; Z82.49 Family history of ischemic heart disease and other diseases of the circulatory system; Z83.3 Family history of diabetes mellitus
CPT/HCPCS: 36415; 80048; 80053; 81001; 82043; 82088; 82570; 82784; 82962; 83521; 83615; 83880; 84132; 84155; 84156; 84165; 84244; 85025; 86334; 87081; 93005; 94640; 96365; 96375; 99291; G0378; J1815; J2470

== ENCOUNTER → 2024-09-06 | Outpatient (CLI) | payer MEDICAID ==
[2024-09-06 11:01] LABS: Anion Gap 6 (5-15); Carbon Dioxide 27 mmol/L (20-31); Sodium 144 mmol/L (136-145)
[2024-09-06 11:02] LABS: Calcium 8.9 mg/dL (8.7-10.4)
[2024-09-06 11:07] LABS: BUN/Creatinine Ratio 13.5 (10.0-20.0); Glucose 84 mg/dL (74-106)
[2024-09-06 11:45] LABS: Blood Urea Nitrogen 35 mg/dL (9-23); Chloride 111 mmol/L (98-107); Potassium 5.9 mmol/L (3.5-5.1)
== END | disposition home or self-care (01) ==
LOC: LAB 09:54
PROVIDERS: ATTEND Internal Medicine
DX: I12.9 Hypertensive chronic kidney disease with stage 1 through stage 4 chronic kidney disease, or unspecified chronic kidney disease (principal); N18.9 Chronic kidney disease, unspecified
CPT/HCPCS: 36415; 80048

== ENCOUNTER → 2024-09-17 | Outpatient (CLI) | payer MEDICAID ==
[~2024-09-17] MED LIST changes: +FLU01T PO; +SODI5PAK PO; -ZOFR4T PO
[2024-09-17 10:51] LABS: Potassium 4.2 mmol/L (3.5-5.1); Sodium 143 mmol/L (136-145)
[2024-09-17 10:52] LABS: Anion Gap 5 (5-15); Calcium 9.1 mg/dL (8.7-10.4); Carbon Dioxide 28 mmol/L (20-31); Chloride 110 mmol/L (98-107)
[2024-09-17 10:57] LABS: BUN/Creatinine Ratio 13.4 (10.0-20.0)
[2024-09-17 10:58] LABS: Blood Urea Nitrogen 32 mg/dL (9-23); Glucose 196 mg/dL (74-106)
== END | disposition home or self-care (01) ==
LOC: LAB 09:52
PROVIDERS: ATTEND Internal Medicine
DX: I12.9 Hypertensive chronic kidney disease with stage 1 through stage 4 chronic kidney disease, or unspecified chronic kidney disease (principal); N18.9 Chronic kidney disease, unspecified
CPT/HCPCS: 36415; 80048

== ENCOUNTER → 2024-09-20 | Outpatient (CLI) | payer MEDICAID ==
[2024-09-20 15:16] LABS: Sodium 144 mmol/L (136-145)
[2024-09-20 15:17] LABS: Anion Gap 5 (5-15); Carbon Dioxide 29 mmol/L (20-31)
[2024-09-20 15:18] LABS: Chloride 110 mmol/L (98-107); Potassium 5.2 mmol/L (3.5-5.1)
[2024-09-20 15:22] LABS: BUN/Creatinine Ratio 14.1 (10.0-20.0)
[2024-09-20 15:28] LABS: Blood Urea Nitrogen 31 mg/dL (9-23); Glucose 216 mg/dL (74-106)
== END | disposition home or self-care (01) ==
LOC: LAB 14:47
PROVIDERS: ATTEND Internal Medicine
DX: N17.9 Acute kidney failure, unspecified (principal)
CPT/HCPCS: 36415; 80048

== ENCOUNTER 2024-10-03 11:34 | Inpatient (IN) | payer MEDICAID ==
[~2024-10-03] VITALS: Ht 167.6 cm; Wt 90.7 kg
--- NOTE | 2024-10-03 11:53 | ED.PDOC ---
History of Present Illness HPI Comments 29-year-old male brought by paramedics from home because of facial swelling which started yesterday progressively increasing. Patient states that his breathing is normal with no tongue swelling. His face alone was affected. He does have a history of chronic kidney disease hyperkalemia hyperglycemia. His blood pressure was 185 over 95 with a blood sugar of 320. Denies chest pain. Denies nausea vomiting. Chief Complaint: Allergic Reaction Time Seen by MD: 11:48 Primary Care Provider: MEGHANA King Notes: Nurses Notes, Medications, Allergies Allergies: Coded Allergies: NO KNOWN ALLERGIES (Unverified , 12/01/18) Home Meds Active Scripts Fludrocortisone Acetate (Florinef) 0.1 Mg Tb, 0.1 MG PO DAILY for 30 Days, #30 TAB Prov:TOVA ZHAO MD 09/09/24 Sodium Zirconium Cyclosilicate (Lokelma) 5 Gm Demond, 10 GM PO BID for 30 Days, #30 PACK Prov:TOVA ZHAO MD 09/09/24 Amlodipine Besylate (Amlodipine Besylate) 10 Mg Tab, 1 TAB PO DAILY for 30 Days, #30 TAB 5 Refills Prov:KVNG LAM RESIDENT 08/13/24 Ferrous Sulfate (Iron) 325 Mg Tab, 325 MG PO DAILY for 30 Days, #30 TAB Prov:KVNG LAM RESIDENT 08/13/24 Pantoprazole Sodium Sesquihydr (Protonix) 40 Mg Tab, 40 MG PO DAILY for 30 Days, #30 TAB Prov:GIA REIS RESIDENT 04/20/24 Reported Medications Metformin Hydrochloride (Metformin Hcl) 1,000 Mg Tab, 1 TAB PO DAILY, #60 TAB 5 Refills 04/17/24 Insulin Glargine (Lantus) 100 Unit/Ml Inj, 10 UNIT SC PCHS, INJ 12/03/18 Information Source: Patient, Emergency Med Personnel Mode of Arrival: EMS Severity: Moderate Timing: Days Duration: Since onset Past Medical History PAST MEDICAL HISTORY: Anemia, CKF, DM, GERD, High Lipids, HTN, Liver Surgical History: Denies all surgeries Family History Family History: Family hx of Cancer Social History Smoker: Quit Greater Than 1 Year Alcohol: Rarely Drugs: Marijuana Lives In: Home Constitutional: denies: chills, diaphoresis, fatigue, fever, malaise, sweats, weakness, others EENTM: denies: blurred vision, double vision, ear bleeding, ear discharge, ear drainage, ear pain, ear ringing, eye pain, eye redness, hearing loss, mouth pain, mouth swelling, nasal discharge, nose bleeding, nose congestion, nose pain, photophobia, tearing, throat pain, throat swelling, voice changes, others Respiratory: denies: cough, hemoptysis, orthopnea, SOB at rest, shortness of breath, SOB with excertion, stridor, wheezing, others Cardiovascular: denies: chest pain, dizzy spells, diaphoresis, Dyspnea on exertion, edema, irregular heart beat, left arm pain, lightheadedness, palpitations, PND, syncope, others Gastrointestinal: denies: abdomen distended, abdominal pain, blood streaked bowels, constipated, diarrhea, dysphagia, difficulty swallowing, hematemesis, melena, nausea, poor appetite, poor fluid intake, rectal bleeding, rectal pain, vomiting, others Genitourinary: denies: burning, dysuria, flank pain, frequency, hematuria, incontinence, penile discharge, penile sore, pain, testicle pain, testicle swelling, urgency, others Neurological: denies: dizziness, fainting, headache, left sided numbness, left sided weakness, numbness, paresthesia, pre-existing deficit, right sided numbness, right sided weakness, seizure, speech problems, tingling, tremors, weakness, others Musculoskeletal: denies: back pain, gout, joint pain, joint swelling, muscle pain, muscle stiffness, neck pain, others Integumetry: reports: others (Facial swelling); denies: bruises, change in color, change in hair/nails, dryness, laceration, lesions, lumps, rash, wounds Allergic/Immunocompromised: denies: Difficulty Healing, Frequent Infections, Hives, Itching, others Hematologic/Lymphatic: denies: anemia, blood clots, easy bleeding, easy bruising, swollen glands, others Endocrine: denies: excessive hunger, excessive sweating, excessive thirst, excessive urination, flushing, intolerance to cold, intolerance to heat, unexplained weight gain, unexplained weight loss, others Psychiatric: denies: anxiety, bipolar disorder, depression, hopeless, panic disorder, schizophrenia, sleepless, suicidal, others Physical Exam General Appearance: Moderate Distress HEENT: Other (Facial swelling tongue spared) Neck: Full Range of Motion, Non-Tender, Normal, Normal Inspection Respiratory: Chest Non-Tender, Lungs Clear, No Accessory Muscle Use, No Respi ratory Distress, Normal Breath Sounds Cardiovascular: No Edema, No JVD, No Murmur, No Gallop, Normal Peripheral Pulses, Regular Rate/Rhythm Breast Exam: Deferred Gastrointestinal: No Organomegaly, Non Tender, No Pulsatile Mass, Normal Bowel Sounds, Soft Genitalia: Deferred Pelvic: Deferred Rectal: Deferred Extremities: No calf tenderness, No pedal edema Musculoskeletal : Apperance: Normal Neurologic: Alert, No Motor Deficits, No Sensory Deficits Cerebellar Function: NOT DONE Reflexes: NOT DONE Skin: Dry, Normal Color, Warm Lymphatic: No Adenopathy Was a procedure done? Was a procedure done?: No Differential Dx Considerations may include: Anemia Electrolyte imbalance X-Ray, Labs, Meds, VS Vital Signs Date Time Temp Pulse Resp B/P (MAP) Pulse Ox O2 Delivery O2 Flow Rate FiO2 10/03/24 16:25 98.7 109 24 198/116 (143) 96 98.7 10/03/24 14:00 87 15 172/90 (117) 99 10/03/24 11:54 Room Air* 0 21 10/03/24 11:53 98.9 97 17 177/96 (123) 100 98.9 10/03/24 11:40 98.7 100 24 185/95 (125) 95 98.7 10/03/24 11:40 24 95 Room Air* 0 21 Lab Test 10/03/24 12:09 Range/Units White Blood Count 9.3 4.4-10.8 10^3/uL Red Blood Count 2.86 L 4.5-5.90 10^6/uL Hemoglobin 9.1 L 13.5-17.5 g/dL Hematocrit 26.5 L 41.0-53.0 % Mean Corpuscular Volume 92.8 80.0-100.0 fL Mean Corpuscular Hemoglobin 31.7 28.0-32.0 pg Mean Corpuscular Hemoglobin Concent 34.2 32.0-36.0 g/dL Red Cell Distribution Width 14.3 11.8-14.3 % Platelet Count 159 140-450 10^3/uL Mean Platelet Volume 7.5 6.9-10.8 fL Neutrophils (%) (Auto) 91.1 H 37.0-80.0 % Lymphocytes (%) (Auto) 5.6 L 10.0-50.0 % Monocytes (%) (Auto) 2.9 0.0-12.0 % Eosinophils (%) (Auto) 0.1 0.0-7.0 % Basophils (%) (Auto) 0.3 0.0-2.0 % Neutrophils # (Auto) 8.5 1.6-8.6 10 ^3/uL Lymphocytes # (Auto) 0.5 0.4-5.4 10 ^3/uL Monocytes # (Auto) 0.3 0-1.3 10 ^3/uL Eosinophils # (Auto) 0 0-0.8 10 ^3/uL Basophils # (Auto) 0 0-0.2 10 ^3/uL Nucleated Red Blood Cells 0.0 % Sodium Level 144 136-145 mmol/L Potassium Level 4.7 3.5-5.1 mmol/L Chloride Level 110 H 98-107 mmol/L Carbon Dioxide Level 27 20-31 mmol/L Anion Gap 7 5-15 Blood Urea Nitrogen 39 H 9-23 mg/dL Creatinine 2.49 H 0.700-1.30 mg/dL Glomerular Filtration Rate Calc 35 >90 mL/min BUN/Creatinine Ratio 15.7 10.0-20.0 Serum Glucose 317 H 74-106 mg/dL Calcium Level 8.7 8.7-10.4 mg/dL Troponin I High Sensitivity 13 </=54 ng/L Current Medications Medications (Trade) Dose Ordered Sig/[facility] Route Start Time Stop Time Status Last Admin Methylprednisolone Sodium Succinate (Solu Medrol) 125 mg ONCE ONCE IV 10/03/24 12:00 10/03/24 12:01 DC 10/03/24 12:02 Patient alert. Complaining of facial swelling. He does have chronic kidney disease. Blood sugar elevated. He does have hyperkalemia. Treat himself at home. Reviewed his history. Explained to the patient. Continue cardiac monitoring. EKG reviewed does not show any acute changes. Chest x-ray reviewed does not show any acute changes. Blood sugar elevated. Kidney function elevated. Nephrology consultation. Time of 1ST Reevaluation: 11:51 Reevaluation 1ST: Unchanged Patient Education/Counseling: Diagnosis, Treatment, Prognosis Family Education/Counseling: No Family Present Departure 1 Departure Time of Disposition: 11:52 Impression: Primary Impression: Uncontrolled diabetes mellitus Qualified Codes: E13.65 - Other specified diabetes mellitus with hyperglycemia Additional Impressions: Hypertensive urgency Chronic kidney disease Qualified Codes: N18.9 - Chronic kidney disease, unspecified Disposition: 09 ADMITTED INPATIENT Admit to: Med Surg Condition: Guarded Critical Care Note Critical Care Time?: Yes (90 min-critical care time only) Critical care comment: Facial swelling hypotension hyperglycemia Stability Stability form required: No Heart Score Heart Score: Heart Score Response (Comments) Value History Slightly Suspicious 0 EKG Normal 0 Age <45 0 Risk Factors >3 or Hx ASHD 2 Troponin Normal limit 0 Total 2 YORDAN RAY MD Oct 03, 2024 11:53
[2024-10-03] MEDS: methylPREDNISolone SOD SUCC 125 MG/2 ML VL IV ONE (12:02)
[2024-10-03 12:16] LABS: Basophils # (auto) 0 10 ^3/uL (0-0.2); Basophils % (auto) 0.3 % (0.0-2.0); Eosinophils # (auto) 0 10 ^3/uL (0-0.8); Eosinophils % (auto) 0.1 % (0.0-7.0); Hematocrit 26.5 % (41.0-53.0); Hemoglobin 9.1 g/dL (13.5-17.5); Lymphocytes # (auto) 0.5 10 ^3/uL (0.4-5.4); Lymphocytes % (auto) 5.6 % (10.0-50.0); Mean Corpuscular Hemoglobin 31.7 pg (28.0-32.0); Mean Corpuscular Hgb Conc. 34.2 g/dL (32.0-36.0); Mean Corpuscular Volume 92.8 fL (80.0-100.0); Monocytes # (auto) 0.3 10 ^3/uL (0-1.3); Monocytes % (auto) 2.9 % (0.0-12.0); Neutrophils # (auto) 8.5 10 ^3/uL (1.6-8.6); Neutrophils % (auto) 91.1 % (37.0-80.0); Platelet Count (auto) 159 10^3/uL (140-450); Red Blood Cells 2.86 10^6/uL (4.5-5.90); Red Cell Distribution Width 14.3 % (11.8-14.3); White Blood Cell 9.3 10^3/uL (4.4-10.8)
--- NOTE | 2024-10-03 12:25 | DVH ---
INDICATION: sob TECHNIQUE: Frontal view of the chest. COMPARISON: XY CHEST PORTABLE on DOS: 08/19/23 FINDINGS: . The heart and mediastinal contours are grossly unremarkable. There is no evidence of pleural disea se. The lungs are clear. The bony structures of the chest are intact without fracture. IMPRESSION: 1. No evidence of acute disease.
[2024-10-03 12:32] LABS: Potassium 4.7 mmol/L (3.5-5.1); Sodium 144 mmol/L (136-145)
[2024-10-03 12:33] LABS: Anion Gap 7 (5-15); Carbon Dioxide 27 mmol/L (20-31); Chloride 110 mmol/L (98-107)
[2024-10-03 12:34] LABS: Calcium 8.7 mg/dL (8.7-10.4)
[2024-10-03 12:38] LABS: BUN/Creatinine Ratio 15.7 (10.0-20.0)
[2024-10-03 12:45] LABS: Blood Urea Nitrogen 39 mg/dL (9-23); Glucose 317 mg/dL (74-106)
[2024-10-03] MEDS: LABETALOL HCL 20 MG/4 ML VL IV ONE (16:35)
[2024-10-03 20:43] LABS: Urine Bacteria None Seen /hpf (None Seen)
[2024-10-03 20:58] LABS: Urine Blood 3+ /uL (Negative); Urine Clarity Turbid (Clear); Urine Color Light-Yellow (Yellow); Urine Mucus FEW (None Seen); Urine Protein, UAD 3+ (Negative); Urine Specific Gravity 1.014 (1.001-1.035); Urine Squamous Epithelial Cell None Seen /hpf (<5); Urine Urobilinogen Normal (Negative); Urine WBC 8 /HPF (0-3)
[2024-10-03] MEDS: cloNIDine HCL 0.1 MG TAB PO ONE (22:05)
--- NOTE | 2024-10-03 23:50 | DVHHPRES ---
History of Present Illness Resident Creating Document: FADUMO RUBY Reason for Visit: Generalized edema History of Present Illness Patient is a 29-year-old male with a past medical history of type 1 diabetes, CKD stage 3, hypertension, and mild hydronephrosis on ultrasound presented to the ED today with one-week history of generalized swelling. Per patient the swelling started on his ankle bilaterally the progressed proximally involved in his scrotum. This morning he woke up with his face swollen thus prompting the visit to the ED. Patient denied any insect bites, allergies or anaphylactic reactions. He denies fever, chills nausea or vomiting. Patient was last seen here September, and managed for hyperkalemia. Pmhx: Diabetes for 14 years, Chronic kidney disease 3b, Hypertension and dyslipidemia Family history:Diabetes Mellitus Pshx : None Social history: student and lives with cousin. Does not drink, smokes weeds Past Medical History See HPI Past Surgical History See hpi Review of Systems Review of Systems Constitutional: Denies fever no chill; feeling of malaise HEENT: Denies headache, ear pain, ear discharges, conjunctivitis, nasal disc harge throat pain Cardiovascular: Denies chest pain, palpitation, orthopnea, PND, or pedal edema Respiratory: Denies shortness of breath, cough cough, sputum production, hemoptysis, GI: Denies abdominal pain, nausea, vomiting, diarrhea, hematemesis, hem atochezia, : Denies frequency, urgency, hematuria, Endocrine: Denies unintentional weight gain or weight loss, feeling of hot flashes, Randal: Denies easy bruising, bleeding disorders, epistaxis Musculoskeletal: Denies joint pains, muscle aches Psych: No evidence of depression, lois, suicidal ideation Allergies: Coded Allergies: NO KNOWN ALLERGIES (Unverified , 12/01/18) Exam Vital Signs Vital Signs Date Time Temp Pulse Resp B/P (MAP) Pulse Ox O2 Delivery O2 Flow Rate FiO2 10/03/24 22:05 157/83 10/03/24 19:30 Room Air* 0 21 10/03/24 17:55 105 10/03/24 16:25 98.7 24 96 98.7 Exam General Appearance: Alert, Oriented X3, Cooperative, No acute distress, facial puffiness HEENT: Atraumatic, PERRLA, EOMI, Mucous membrane moist/pink Respiratory: Clear to auscultation, Normal air movement Cardiovascular: Regular rate, Normal S1, Normal S2, No murmurs, no chest wall tenderness Abdominal: NO distention, no tenderness, bowel sounds present, no scars noted; Mild scrotal edema Extremities: edema, Normal pulses, No tenderness/swelling Skin: No rashes, No breakdown, No significant lesion Neuro: Normal gait, Normal speech, Strength at 5/5 X4 ext, Normal tone, Sensation intact, Cranial nerves 3-12 NL, Reflexes 2+ Psych/Mental Status: Mental status NL, Mood NL Labs/Xrays Labs Test 10/03/24 20:20 10/03/24 12:09 Range/Units Urine Color Light-yellow Yellow Urine Clarity Turbid H Clear Urine pH 6.0 5.0-9.0 Urine Specific [place] 1.014 1.001-1.035 Urine Protein 3+ H Negative Urine Ketones Negative Negative Urine Blood 3+ H Negative /uL Urine Nitrite Negative Negative Urine Bilirubin Negative Negative Urine Urobilinogen Normal Negative mg/dL Urine Leukocyte Esterase Negative Negative /uL Urine RBC 10 0 - 3 /hpf Urine Microscopic WBC 8 H 0-3 /HPF Urine Squamous Epithelial Cells None seen <5 /hpf Urine Bacteria None seen None Seen /hpf Urine Mucus Few None Seen Urine Glucose 4+ H Normal mg/dL White Blood Count 9.3 4.4-10.8 10^3/uL Red Blood Count 2.86 L 4.5-5.90 10^6/uL Hemoglobin 9.1 L 13.5-17.5 g/dL Hematocrit 26.5 L 41.0-53.0 % Mean Corpuscular Volume 92.8 80.0-100.0 fL Mean Corpuscular Hemoglobin 31.7 28.0-32.0 pg Mean Corpuscular Hemoglobin Concent 34.2 32.0-36.0 g/dL Red Cell Distribution Width 14.3 11.8-14.3 % Platelet Count 159 140-450 10^3/uL Mean Platelet Volume 7.5 6.9-10.8 fL Neutrophils (%) (Auto) 91.1 H 37.0-80.0 % Lymphocytes (%) (Auto) 5.6 L 10.0-50.0 % Monocytes (%) (Auto) 2.9 0.0-12.0 % Eosinophils (%) (Auto) 0.1 0.0-7.0 % Basophils (%) (Auto) 0.3 0.0-2.0 % Neutrophils # (Auto) 8.5 1.6-8.6 10 ^3/uL Lymphocytes # (Auto) 0.5 0.4-5.4 10 ^3/uL Monocytes # (Auto) 0.3 0-1.3 10 ^3/uL Eosinophils # (Auto) 0 0-0.8 10 ^3/uL Basophils # (Auto) 0 0-0.2 10 ^3/uL Nucleated Red Blood Cells 0.0 % Sodium Level 144 136-145 mmol/L Potassium Level 4.7 3.5-5.1 mmol/L Chloride Level 110 H 98-107 mmol/L Carbon Dioxide Level 27 20-31 mmol/L Anion Gap 7 5-15 Blood Urea Nitrogen 39 H 9-23 mg/dL Creatinine 2.49 H 0.700-1.30 mg/dL Glomerular Filtration Rate Calc 35 >90 mL/min BUN/Creatinine Ratio 15.7 10.0-20.0 Serum Glucose 317 H 74-106 mg/dL Calcium Level 8.7 8.7-10.4 mg/dL Troponin I High Sensitivity 13 </=54 ng/L Assessment/Plan Assessment/Plan Assessment Generalized edema/ anasarca likely due to nephrotic syndrome, urine protein 3+ MESHA on CKD 3B, likely VMN Type 1 diabetes, Hgb A1 c 5.8 Hypertension Dyslipidemia Anemia Overweight, BMI: 28. plan: 24hhour urine protein Urine sodium and Urine creatinine MARIA INES comprehensive panel Diabetes education: lifestyle modification prior to discharge Continue home medication Nephrology consult Goal of care discussed for more than 25 minutes: Full code Case and plan discussed with Dr. Cheatham Plan discussed with: Patient Date of Service: Oct 03, 2024 Billing Provider: TOVA CHEATHAM MD Common Visit Codes: [id number] INP/OBS CARE (HIGH) FADUMO RUBY RESIDENT Oct 03, 2024 23:50 TOVA CHEATHAM MD Oct 04, 2024 11:33
[2024-10-04] VITALS (8 sets, daily range): BP systolic 129–161; BP diastolic 75–103; PULSE 84–91; RESP 16–18; TEMP 98.1–98.4; O2SAT 96–99
[2024-10-04] MEDS: DEXTROSE (50%) 50ML SYRG IV ONE
[2024-10-04 00:14] LABS: Triglycerides 119 mg/dL (< 150)
[2024-10-04 00:15] LABS: LDL Cholesterol 90 mg/dL (< 100)
[2024-10-04] MEDS: ACCU-CHEK COMFORT CURVE STRIP VI ONE ×2 (00:15→05:29)
[2024-10-04 00:16] LABS: Cholesterol 163 mg/dL (< 200); HDL Cholesterol 47 mg/dL (40-59)
[2024-10-04] MEDS: InsuLIN REG 1unit/0.01ml Soln (100units/ml) SC ONE (00:20)
[2024-10-04] MEDS: PANTOPRAZOLE 40 MG/10 ML VIAL INJ IV ONE (00:21)
[2024-10-04] MEDS: amLODIPine BESYLATE 5 MG TAB PO ONE (00:22)
[2024-10-04] MEDS ORDERED: ACCU-CHEK COMFORT CURVE STRIP VI ONE (08:00)
[2024-10-04] MEDS ORDERED: InsuLIN REG 1unit/0.01ml Soln (100units/ml) SC ONE (08:00)
[2024-10-04] MEDS ORDERED: DEXTROSE (50%) 50ML SYRG IV ONE (08:00)
[2024-10-04] MEDS ORDERED: DEXTROSE (50%) 50ML SYRG IV PRN (08:30)
[2024-10-04 08:50] LABS: Alanine Aminotransferase 30 U/L (7-40); Alkaline Phosphatase 60 U/L (46-116); BUN/Creatinine Ratio 14.8 (10.0-20.0); Bilirubin, Total 0.4 mg/dL (0.2-1.0); Carbon Dioxide 26 mmol/L (20-31); Potassium 4.8 mmol/L (3.5-5.1); Sodium 142 mmol/L (136-145)
[2024-10-04 09:08] LABS: Albumin 3.1 g/dL (3.2-4.8); Aspartate Aminotransferase 43 U/L (13-40); Blood Urea Nitrogen 44 mg/dL (9-23); Calcium 8.4 mg/dL (8.7-10.4); Glucose 216 mg/dL (74-106); Total Protein 5.4 g/dL (5.7-8.2)
[2024-10-04 09:14] LABS: Anion Gap 5 (5-15)
[2024-10-04 09:17] LABS: Chloride 111 mmol/L (98-107)
[2024-10-04 10:02] LABS: Basophils # (auto) 0 10 ^3/uL (0-0.2); Basophils % (auto) 0.1 % (0.0-2.0); Eosinophils # (auto) 0 10 ^3/uL (0-0.8); Hematocrit 25.6 % (41.0-53.0); Hemoglobin 8.9 g/dL (13.5-17.5); Lymphocytes # (auto) 1.2 10 ^3/uL (0.4-5.4); Lymphocytes % (auto) 9.3 % (10.0-50.0); Mean Corpuscular Hemoglobin 32.2 pg (28.0-32.0); Mean Corpuscular Hgb Conc. 34.6 g/dL (32.0-36.0); Monocytes % (auto) 8.1 % (0.0-12.0); Neutrophils # (auto) 10.4 10 ^3/uL (1.6-8.6); Neutrophils % (auto) 82.5 % (37.0-80.0); Platelet Count (auto) 163 10^3/uL (140-450); Red Blood Cells 2.75 10^6/uL (4.5-5.90); Red Cell Distribution Width 14.7 % (11.8-14.3); White Blood Cell 12.6 10^3/uL (4.4-10.8)
[2024-10-04] MEDS: PANTOPRAZOLE 40 MG/10 ML VIAL INJ IV SCH (11:11)
[2024-10-04] MEDS: methylPREDNISolone SOD SUCC 40 MG/ML VL IV SCH (11:11)
[2024-10-04] MEDS: amLODIPine BESYLATE 5 MG TAB PO SCH (11:11)
[2024-10-04] MEDS: BENAZEPRIL HCL 10 MG TAB PO SCH (11:12)
--- NOTE | 2024-10-04 11:17 | DVH ---
INDICATION: nephrotic syndrome TECHNIQUE: Multiple real-time sonographic images of the kidneys and bladder were obtained. COMPARISON: US KIDNEY on DOS: 08/13/24 FINDINGS: The right kidney measures 14 cm in length, which is enlarged in size. There is increased ec hogenicity of the right kidney. No hydronephrosis. The left kidney measures 14 cm in length, which is normal in size. There is increased echogenicity of the left kidney. Mild left hydronephrosis. No large intraluminal masses are seen in the bladder. Trace fluid is visualized posterior to the blad bridget. IMPRESSION: Echogenic bilateral kidneys which appear enlarged suggestive of chronic medical renal disease. Mild left hydronephrosis. Trace fluid is visualized posterior to the urinary bladder.
[2024-10-04] MEDS: InsuLIN REG 1unit/0.01ml Soln (100units/ml) SC SCH (11:30)
[2024-10-04] MEDS: ACCU-CHEK COMFORT CURVE STRIP VI SCH (11:30)
--- NOTE | 2024-10-04 13:19 | DVHPNRES ---
Progress Note Date Seen: Oct 04, 2024 Resident Creating Document: OWEN LARIOS RESIDENT Has the PT tested + for MRSA If YES, has PT been informed?: No Medical Necessity Reason Pt with a Central, PICC or Fol: No Subjective Review of Systems A 29y old PMHX type1 DM, CKD stage 3, HTN, patient states that since 4 days ago he started to have bilateral leg edema, then escrotum and on friday his face Patient denied any insect bites, allergies or anaphylactic reactions. He denies fever, chills nausea or vomiting. Patient was last seen here September, and managed for hyperkalemia. Pmhx: Diabetes for 14 years, Chronic kidney disease 3b, Hypertension and dyslipidemia Family history:Diabetes Mellitus Pshx : None Social history: student and lives with cousin. Does not drink, smokes weeds Past Medical History See HPI Past Surgical History See hpi Objective vital signs Vital Sign Date Time Temp Pulse Resp B/P (MAP) Pulse Ox O2 Delivery O2 Flow Rate FiO2 10/04/24 13:13 98.2 91 17 161/103 (122) 97 98.2 10/04/24 02:08 Room Air* 0 21 Total Intake and Output 10/03/24 10/03/24 10/04/24 15:00 23:00 07:00 Intake Total 800 ml Balance 800 ml medications Current Medications Medications Dose Ordered Sig/Jorge Route Start Time Stop Time Status Last Admin Dose Admin Pantoprazole Sodium 40 mg DAILY IV 10/04/24 10:00 10/04/24 11:11 40 MG Amlodipine Besylate 10 mg DAILY PO 10/04/24 10:00 10/04/24 11:11 10 MG Benazepril HCl 10 mg BID PO 10/04/24 10:00 10/04/24 11:12 10 MG Methylprednisolone Sodium Succinate 40 mg BID IV 10/04/24 10:00 10/04/24 11:11 40 MG Diagnostic Test (Pha) 1 strip ACHS 10/04/24 11:30 10/04/24 11:30 1 STRIP Insulin Human Regular ACHS SC 10/04/24 11:30 10/04/24 11:30 4 UNITS Dextrose 50 ml UD PRN IV 10/04/24 08:30 Bumetanide 2 mg BIDD IV 10/04/24 18:00 Examination General Appearance: Alert, Oriented X3, Cooperative, No acute distress, facial puffiness HEENT: Atraumatic, PERRLA, EOMI, Mucous membrane moist/pink Respiratory: Clear to auscultation, Normal air movement Cardiovascular: Regular rate, Normal S1, Normal S2, No murmurs, no chest wall tenderness Abdominal: NO distention, no tenderness, bowel sounds present, no scars noted; Mild scrotal edema Extremities: edema, Normal pulses, No tenderness/swelling Skin: No rashes, No breakdown, No significant lesion Neuro: Normal gait, Normal speech, Strength at 5/5 X4 ext, Normal tone, Sensation intact, Cranial nerves 3-12 NL, Reflexes 2+ Psych/Mental Status: Mental status NL, Mood NL laboratory and microbiology Laboratory Tests 10/04/24 09:35 10/04/24 05:10 Test 10/04/24 05:10 Range/Units Serum Glucose 216 #H 74-106 mg/dL Problem List/Assessment/Plan Problem List/Assessment/Plan #Generalized edema/ anasarca likely due to nephrotic syndrome, urine protein 3+ #MESHA due to nephrotic syndrome on CKD 3B #Diabetic nephropathy #Type 1 diabetes, Hgb A1 c 5.8 #Hypertensive urgency #Dyslipidemia #Anemia #Overweight, BMI: 28. #Leukocytosis due to steroids Bumex 2 mg IV BID Amlodipine 10 mg PO Benazepril 10 mg PO Methylprednisolone 40 mg IV BID ISS Protonix IV Enoxaparin 40 mg SC Nephrology on board Tylenol PRN Kidney biopsy per nephro Autoimmune panel per nephro Nicardipine drip off Case discussed with Dr Campos Plan discussed with: Patient, Other (rn) My Orders My Orders Orders - OWEN LARIOS Procedure Category Date Status Time Kidney US 10/04/24 Resulted 09:55 Acetaminophen Tablet PHA 10/04/24 Verified (Tylenol Tablet) 13:30 Date of Service: Oct 04, 2024 Billing Provider: MAYANK CAMPOS MD Common Visit Codes: [id number] INP/OBS CARE(HIGH) OWEN LARIOS Oct 04, 2024 13:19 MAYANK CAMPOS MD Oct 04, 2024 22:05
[2024-10-04] MEDS ORDERED: ACETAMINOPHEN 325 MG TAB PO PRN (13:30)
--- NOTE | 2024-10-04 15:35 | DVHINCON2 ---
Date of service: Oct 04, 2024 Reason for Consultation MESHA History of Present Illness 29 years old male with past medical history of diabetes for the past 14 years, hypertension, dyslipidemia, Chronic kidney disease IIIb presented with chief complaints worsening lower extremity swelling all the way up until his face also reports scrotal swelling for the past 4 to 5 days In the previous admissions patient was asked to see us in the office as outpatient for follow-up of Chronic kidney disease and need for biopsy as outpatient however patient never followed with us as outpatient Despite being repeatedly told during hospitalizations His potassium looks okay for now Past Medical History As per HPI Past Surgical History None Allergies: Coded Allergies: NO KNOWN ALLERGIES (Unverified , 12/01/18) Home Meds Active Scripts Fludrocortisone Acetate (Florinef) 0.1 Mg Tb, 0.1 MG PO DAILY for 30 Days, #30 TAB Prov:TOVA ZHAO MD 09/09/24 Sodium Zirconium Cyclosilicate (Lokelma) 5 Gm Demond, 10 GM PO BID for 30 Days, #30 PACK Prov:TOVA ZHAO MD 09/09/24 Amlodipine Besylate (Amlodipine Besylate) 10 Mg Tab, 1 TAB PO DAILY for 30 Days, #30 TAB 5 Refills Prov:VKNG LAM RESIDENT 08/13/24 Ferrous Sulfate (Iron) 325 Mg Tab, 325 MG PO DAILY for 30 Days, #30 TAB Prov:KVNG LAM RESIDENT 08/13/24 Pantoprazole Sodium Sesquihydr (Protonix) 40 Mg Tab, 40 MG PO DAILY for 30 Days, #30 TAB Prov:GIA REIS RESIDENT 04/20/24 Reported Medications Metformin Hydrochloride (Metformin Hcl) 1,000 Mg Tab, 1 TAB PO DAILY, #60 TAB 5 Refills 04/17/24 Insulin Glargine (Lantus) 100 Unit/Ml Inj, 10 UNIT SC PCHS, INJ 12/03/18 Current Medications Current Medications Medications (Trade) Dose Ordered Sig/Jorge Route PRN Reason Start Time Stop Time Status Last Admin Nicardipine HCl 250 ml @ 50 mls/hr Q5H IV 10/03/24 17:45 10/03/24 20:31 DC Pantoprazole Sodium (Protonix) 40 mg DAILY IV 10/04/24 10:00 10/04/24 11:11 Amlodipine Besylate (Norvasc Tablet) 10 mg DAILY PO 10/04/24 10:00 10/04/24 11:11 Benazepril HCl (Lotensin Tablet) 10 mg BID PO 10/04/24 10:00 10/04/24 15:22 DC 10/04/24 11:12 Methylprednisolone Sodium Succinate (Solu Medrol) 40 mg BID IV 10/04/24 10:00 10/04/24 11:11 Diagnostic Test (Pha) (Accu-Chek Comfort Curve T) 1 strip ACHS 10/04/24 11:30 10/04/24 11:30 Insulin Human Regular (InsuLIN R) ACHS SC 10/04/24 11:30 10/04/24 11:30 Dextrose 50 ml UD PRN IV Blood Sugar LESS THAN 60 10/04/24 08:30 Bumetanide (Bumex Injection) 1 mg BIDD IV 10/04/24 18:00 10/04/24 13:05 DC Bumetanide (Bumex Injection) 2 mg BIDD IV 10/04/24 18:00 Acetaminophen (Tylenol Tablet) 325 mg Q4HP PRN PO MILD PAIN (1-3 PAIN SCALE) 10/04/24 13:30 Enoxaparin Sodium (Lovenox) 40 mg DAILY SC 10/05/24 10:00 10/04/24 15:21 DC Family History: Diabetes mellitus G8 MOTHER G8 FATHER Hypertension G8 MOTHER G8 FATHER Social History Denies Review of Systems As documented in HPI H&P Exam Vital Signs/I&O Vital Sign Date Time Temp Pulse Resp B/P (MAP) Pulse Ox O2 Delivery O2 Flow Rate FiO2 10/04/24 13:13 98.2 91 17 161/103 (122) 97 98.2 10/04/24 02:08 Room Air* 0 21 Intake and Output 10/03/24 10/04/24 19:00 07:00 Intake Total 800 ml Balance 800 ml Intake Oral 800 ml # Voids 2 Physical Exam General-not in any distress HEENT-swollen face, no icterus, no pallor, neck supple Respiratory-fair air entry bilateral, no rhonchi, no wheeze [id number] heard, no murmurs appreciated Abdominal-soft, nontender, nondistended Musculoskeletal- 4+ pedal edema, no calf tenderness Genitourinary-deferred Neuro-awake alert oriented x3, Psychiatric-not agitated, cooperative, Labs/Diagnostic Data Labs/Diagnostic Data Laboratory Tests Test 10/04/24 14:49 10/04/24 12:21 10/04/24 09:35 10/04/24 05:26 Range/Units POC Glucose 241 H 207 H 70-106 mg/dl White Blood Count 12.6 #H 4.4-10.8 10^3/uL Red Blood Count 2.75 L 4.5-5.90 10^6/uL Hemoglobin 8.9 L 13.5-17.5 g/dL Hematocrit 25.6 L 41.0-53.0 % Mean Corpuscular Volume 93.0 80.0-100.0 fL Mean Corpuscular Hemoglobin 32.2 H 28.0-32.0 pg Mean Corpuscular Hemoglobin Concent 34.6 32.0-36.0 g/dL Red Cell Distribution Width 14.7 H 11.8-14.3 % Platelet Count 163 140-450 10^3/uL Mean Platelet Volume 8.3 6.9-10.8 fL Neutrophils (%) (Auto) 82.5 H 37.0-80.0 % Lymphocytes (%) (Auto) 9.3 L 10.0-50.0 % Monocytes (%) (Auto) 8.1 0.0-12.0 % Eosinophils (%) (Auto) 0.0 0.0-7.0 % Basophils (%) (Auto) 0.1 0.0-2.0 % Neutrophils # (Auto) 10.4 H 1.6-8.6 10 ^3/uL Lymphocytes # (Auto) 1.2 0.4-5.4 10 ^3/uL Monocytes # (Auto) 1.0 0-1.3 10 ^3/uL Eosinophils # (Auto) 0 0-0.8 10 ^3/uL Basophils # (Auto) 0 0-0.2 10 ^3/uL Nucleated Red Blood Cells 0.0 % Test 10/04/24 05:10 10/03/24 20:20 10/03/24 12:09 Range/Units Sodium Level 142 144 136-145 mmol/L Potassium Level 4.8 4.7 3.5-5.1 mmol/L Chloride Level 111 H 110 H 98-107 mmol/L Carbon Dioxide Level 26 27 20-31 mmol/L Anion Gap 5 7 5-15 Blood Urea Nitrogen 44 H 39 H 9-23 mg/dL Creatinine 2.97 H 2.49 H 0.700-1.30 mg/dL Glomerular Filtration Rate Calc 28 35 >90 mL/min BUN/Creatinine Ratio 14.8 15.7 10.0-20.0 Serum Glucose 216 #H 317 H 74-106 mg/dL Hemoglobin A1c 5.8 H <5.7 % A1C Calcium Level 8.4 L 8.7 8.7-10.4 mg/dL Total Bilirubin 0.4 0.2-1.0 mg/dL Aspartate Amino Transferase (AST) 43 H 13-40 U/L Alanine Aminotransferase (ALT) 30 7-40 U/L Alkaline Phosphatase 60 46-116 U/L B-Type Natriuretic Peptide 308.56 0-100 pg/mL Total Protein 5.4 L 5.7-8.2 g/dL Albumin 3.1 L 3.2-4.8 g/dL Urine Color Light-yellow Yellow Urine Clarity Turbid H Clear Urine pH 6.0 5.0-9.0 Urine Specific [place] 1.014 1.001-1.035 Urine Protein 3+ H Negative Urine Ketones Negative Negative Urine Blood 3+ H Negative /uL Urine Nitrite Negative Negative Urine Bilirubin Negative Negative Urine Urobilinogen Normal Negative mg/dL Urine Leukocyte Esterase Negative Negative /uL Urine RBC 10 0 - 3 /hpf Urine Microscopic WBC 8 H 0-3 /HPF Urine Squamous Epithelial Cells None seen <5 /hpf Urine Bacteria None seen None Seen /hpf Urine Mucus Few None Seen Urine Glucose 4+ H Normal mg/dL White Blood Count 9.3 4.4-10.8 10^3/uL Red Blood Count 2.86 L 4.5-5.90 10^6/uL Hemoglobin 9.1 L 13.5-17.5 g/dL Hematocrit 26.5 L 41.0-53.0 % Mean Corpuscular Volume 92.8 80.0-100.0 fL Mean Corpuscular Hemoglobin 31.7 28.0-32.0 pg Mean Corpuscular Hemoglobin Concent 34.2 32.0-36.0 g/dL Red Cell Distribution Width 14.3 11.8-14.3 % Platelet Count 159 140-450 10^3/uL Mean Platelet Volume 7.5 6.9-10.8 fL Neutrophils (%) (Auto) 91.1 H 37.0-80.0 % Lymphocytes (%) (Auto) 5.6 L 10.0-50.0 % Monocytes (%) (Auto) 2.9 0.0-12.0 % Eosinophils (%) (Auto) 0.1 0.0-7.0 % Basophils (%) (Auto) 0.3 0.0-2.0 % Neutrophils # (Auto) 8.5 1.6-8.6 10 ^3/uL Lymphocytes # (Auto) 0.5 0.4-5.4 10 ^3/uL Monocytes # (Auto) 0.3 0-1.3 10 ^3/uL Eosinophils # (Auto) 0 0-0.8 10 ^3/uL Basophils # (Auto) 0 0-0.2 10 ^3/uL Nucleated Red Blood Cells 0.0 % Troponin I High Sensitivity 13 </=54 ng/L Triglycerides Level 119 < 150 mg/dL Cholesterol Level 163 < 200 mg/dL LDL Cholesterol 90 < 100 mg/dL HDL Cholesterol 47 40-59 mg/dL Microbiology Date/Time Source Procedure Growth Status 10/04/24 02:44 Nose MRSA Screen - Final Complete Assessment Acute kidney injury on Chronic kidney disease IIIb hemodynamic mediated etiology in the setting of hypertensive emergency Anasarca Nephrotic range proteinuria DM 14-15 years HTN emergency recs bumex iv bid 2mg kidney biopsy as ordered--informed patient that he needs biopsy for definitive diagnosis to rule out any other glomerular diseases causing anasarca--patient agreed for kidney biopsy MARIA INES panel, Anca panel, C3-C4, anti GBM antibody as ordered Previous admission myeloma panel noted He has no evidence of hematuria in the past now Urine analysis shows 10 RBCs Hold HANS inhibitor for now BP control 2 g sodium diet We will follow closely Reviewed vital signs, lab work, imaging studies, medications, microbiology, previous admissions other physician recommendations Total time spent 80 minutes More than 50% of the time spent providing direct [id number] care . Thank you for allowing me to participate in the care of your patient. Plan discussed with: Patient SHELLY DRISCOLL MD Oct 04, 2024 15:35
[2024-10-04 16:37] LABS: INR 0.98 (0.9-1.15); Partial Thromboplastin Time 25.3 SEC (24.5-34.5); Prothrombin Time 10.4 sec (9.3-11.8)
[2024-10-04] MEDS ORDERED: BUMETANIDE 1mg/4ml VIAL (0.25mg/ml) IV SCH (18:00)
[2024-10-04] MEDS: BUMETANIDE 2.5mg/10ml (0.25 mg/ml) INJ IV SCH (18:11)
[2024-10-05 01:00] VITALS: BP 143/94; PULSE 75; RESP 17; TEMP 98.4; O2SAT 93
[2024-10-05 05:00] VITALS: BP 151/106; PULSE 92; RESP 19; TEMP 98.1; O2SAT 96
[2024-10-05 06:00] LABS: Creatinine, Urine 52.01 mg/dL (30.0-125.0)
[2024-10-05 07:34] LABS: Basophils # (auto) 0 10 ^3/uL (0-0.2); Basophils % (auto) 0.1 % (0.0-2.0); Eosinophils # (auto) 0 10 ^3/uL (0-0.8); Hematocrit 27.5 % (41.0-53.0); Hemoglobin 9.5 g/dL (13.5-17.5); Lymphocytes # (auto) 0.7 10 ^3/uL (0.4-5.4); Lymphocytes % (auto) 6.3 % (10.0-50.0); Mean Corpuscular Hemoglobin 31.9 pg (28.0-32.0); Mean Corpuscular Hgb Conc. 34.6 g/dL (32.0-36.0); Mean Corpuscular Volume 92.2 fL (80.0-100.0); Monocytes # (auto) 0.2 10 ^3/uL (0-1.3); Monocytes % (auto) 2.2 % (0.0-12.0); Neutrophils # (auto) 10.2 10 ^3/uL (1.6-8.6); Neutrophils % (auto) 91.4 % (37.0-80.0); Platelet Count (auto) 168 10^3/uL (140-450); Red Blood Cells 2.98 10^6/uL (4.5-5.90); Red Cell Distribution Width 14.1 % (11.8-14.3); White Blood Cell 11.2 10^3/uL (4.4-10.8)
[2024-10-05 07:58] LABS: Alanine Aminotransferase 33 U/L (7-40); Albumin 3.4 g/dL (3.2-4.8); Alkaline Phosphatase 63 U/L (46-116); Anion Gap 6 (5-15); Aspartate Aminotransferase 36 U/L (13-40); BUN/Creatinine Ratio 18.4 (10.0-20.0); Bilirubin, Total 0.4 mg/dL (0.2-1.0); Blood Urea Nitrogen 54 mg/dL (9-23); Carbon Dioxide 27 mmol/L (20-31); Chloride 107 mmol/L (98-107); Glucose 268 mg/dL (74-106); Potassium 5.1 mmol/L (3.5-5.1); Sodium 140 mmol/L (136-145); Total Protein 5.9 g/dL (5.7-8.2)
[2024-10-05 08:00] VITALS: PULSE 85; RESP 16; O2SAT 98
[2024-10-05 08:07] LABS: Complement C3 112 mg/dL (82-167)
[2024-10-05 09:19] VITALS: BP 160/101; PULSE 85; RESP 16; TEMP 98.2; O2SAT 98
[2024-10-05] MEDS ORDERED: ENOXAPARIN SOD 40 MG/0.4 ML SYRINGE SC SCH (10:00)
[2024-10-05] MEDS: LABETALOL HCL 20 MG/4 ML VL IV PRN (10:03)
[2024-10-05] MEDS: cefTRIAXone 1GM/50ML D5W 50 ML IV SCH (10:15)
--- NOTE | 2024-10-05 11:30 | DVHDSRES ---
Discharge Summary Date of Admission Resident Creating Document: OWEN LARIOS RESIDENT Oct 03, 2024 at 23:50 Labs/Diagnostic Data: Laboratory Results Test 10/05/24 06:10 10/05/24 04:45 10/04/24 21:06 10/04/24 15:50 White Blood Count 11.2 10^3/uL (4.4-10.8) Red Blood Count 2.98 10^6/uL (4.5-5.90) Hemoglobin 9.5 g/dL (13.5-17.5) Hematocrit 27.5 % (41.0-53.0) Mean Corpuscular Volume 92.2 fL (80.0-100.0) Mean Corpuscular Hemoglobin 31.9 pg (28.0-32.0) Mean Corpuscular Hemoglobin Concent 34.6 g/dL (32.0-36.0) Red Cell Distribution Width 14.1 % (11.8-14.3) Platelet Count 168 10^3/uL (140-450) Mean Platelet Volume 9.1 fL (6.9-10.8) Neutrophils (%) (Auto) 91.4 % (37.0-80.0) Lymphocytes (%) (Auto) 6.3 % (10.0-50.0) Monocytes (%) (Auto) 2.2 % (0.0-12.0) Eosinophils (%) (Auto) 0.0 % (0.0-7.0) Basophils (%) (Auto) 0.1 % (0.0-2.0) Neutrophils # (Auto) 10.2 10 ^3/uL (1.6-8.6) Lymphocytes # (Auto) 0.7 10 ^3/uL (0.4-5.4) Monocytes # (Auto) 0.2 10 ^3/uL (0-1.3) Eosinophils # (Auto) 0 10 ^3/uL (0-0.8) Basophils # (Auto) 0 10 ^3/uL (0-0.2) Nucleated Red Blood Cells 0.0 % Sodium Level 140 mmol/L (136-145) Potassium Level 5.1 mmol/L (3.5-5.1) Chloride Level 107 mmol/L (98-107) Carbon Dioxide Level 27 mmol/L (20-31) Anion Gap 6 (5-15) Blood Urea Nitrogen 54 mg/dL (9-23) Creatinine 2.93 mg/dL (0.700-1.30) Glomerular Filtration Rate Calc 28 mL/min (>90) BUN/Creatinine Ratio 18.4 (10.0-20.0) Serum Glucose 268 mg/dL (74-106) Calcium Level 9.0 mg/dL (8.7-10.4) Total Bilirubin 0.4 mg/dL (0.2-1.0) Aspartate Amino Transferase (AST) 36 U/L (13-40) Alanine Aminotransferase (ALT) 33 U/L (7-40) Alkaline Phosphatase 63 U/L (46-116) Total Protein 5.9 g/dL (5.7-8.2) Albumin 3.4 g/dL (3.2-4.8) Urine Creatinine 52.01 mg/dL (30.0-125.0) Urine Sodium 78 mmol/L (40-220) POC Glucose 252 mg/dl (70-106) Prothrombin Time 10.4 sec (9.3-11.8) Prothrombin Time INR 0.98 (0.9-1.15) Activated Partial Thromboplast Time 25.3 SEC (24.5-34.5) Test 10/04/24 14:49 10/04/24 05:10 10/04/24 04:45 10/03/24 20:20 Anti-Nuclear Antibody Comment Comment (.) Complement C3 112 mg/dL (82-167) Complement C4 28 mg/dL (12-38) Hemoglobin A1c 5.8 % A1C (<5.7) B-Type Natriuretic Peptide 308.56 pg/mL (0-100) Urine Color Light-yellow (Yellow) Urine Clarity Turbid (Clear) Urine pH 6.0 (5.0-9.0) Urine Specific [place] 1.014 (1.001-1.035) Urine Protein 3+ (Negative) Urine Ketones Negative (Negative) Urine Blood 3+ /uL (Negative) Urine Nitrite Negative (Negative) Urine Bilirubin Negative (Negative) Urine Urobilinogen Normal mg/dL (Negative) Urine Leukocyte Esterase Negative /uL (Negative) Urine RBC 10 /hpf (0 - 3) Urine Microscopic WBC 8 /HPF (0-3) Urine Squamous Epithelial Cells None seen /hpf (<5) Urine Bacteria None seen /hpf (None Seen) Urine Mucus Few (None Seen) Urine Glucose 4+ mg/dL (Normal) Test 10/03/24 12:09 Troponin I High Sensitivity 13 ng/L (</=54) Triglycerides Level 119 mg/dL (< 150) Cholesterol Level 163 mg/dL (< 200) LDL Cholesterol 90 mg/dL (< 100) HDL Cholesterol 47 mg/dL (40-59) Other Laboratory Tests 10/05/24 06:10 Discharge Statement: "Patient was advised to return to the ER or call 911 if any headaches, dizziness, shortness of breath, chest pain, abdominal pain, bleeding, fevers, or worsening of medical condition. Patient was counseled about treatment plan, medications, possible side effects, patientverbalized understanding. All questions were answered to the best of my ability. This discharge took greater then 30 minutes in planning, reviewing documentation, counseling the patient, and discussing with other team members." ASSESSMENT ASSESSMENT Assessment OWEN LARIOS RESIDENT Oct 05, 2024 11:30
--- NOTE | 2024-10-05 11:31 | DVHPNRES ---
Progress Note Date Seen: Oct 05, 2024 Resident Creating Document: OWEN LARIOS RESIDENT Has the PT tested + for MRSA If YES, has PT been informed?: No Medical Necessity Reason Pt with a Central, PICC or Fol: No Subjective Review of Systems A 29y old PMHX type 2 DM, CKD stage 3, HTN, patient states that since 4 days ago he started to have bilateral leg edema, then escrotum and on friday his face Patient denied any insect bites, allergies or anaphylactic reactions. He denies fever, chills nausea or vomiting. Patient was last seen here September, and managed for hyperkalemia. Pmhx: Diabetes for 14 years, Chronic kidney disease 3b, Hypertension and dyslipidemia Family history:Diabetes Mellitus Pshx : None Social history: student and lives with cousin. Does not drink, smokes weeds Past Medical History See HPI Past Surgical History See hpi Objective vital signs Vital Sign Date Time Temp Pulse Resp B/P (MAP) Pulse Ox O2 Delivery O2 Flow Rate FiO2 10/05/24 10:03 83 156/102 10/05/24 09:19 98.2 16 98 98.2 10/04/24 20:00 Room Air* 0 21 Total Intake and Output 10/04/24 10/04/24 10/05/24 15:00 23:00 07:00 Intake Total 600 ml 200 ml Balance 600 ml 200 ml medications Current Medications Medications Dose Ordered Sig/Jorge Route Start Time Stop Time Status Last Admin Dose Admin Pantoprazole Sodium 40 mg DAILY IV 10/04/24 10:00 10/04/24 11:11 40 MG Amlodipine Besylate 10 mg DAILY PO 10/04/24 10:00 10/04/24 11:11 10 MG Methylprednisolone Sodium Succinate 40 mg BID IV 10/04/24 10:00 10/05/24 10:02 40 MG Diagnostic Test (Pha) 1 strip ACHS 10/04/24 11:30 10/05/24 06:26 1 STRIP Insulin Human Regular ACHS SC 10/04/24 11:30 10/05/24 06:49 6 UNITS Dextrose 50 ml UD PRN IV 10/04/24 08:30 Bumetanide 2 mg BIDD IV 10/04/24 18:00 10/05/24 06:22 2 MG Acetaminophen 325 mg Q4HP PRN PO 10/04/24 13:30 Labetalol HCl 10 mg Q2HPRN PRN IV 10/05/24 08:15 10/05/24 10:03 10 MG Ceftriaxone Sodium 50 ml @ 100 mls/hr DAILY@09 IV 10/05/24 10:15 Examination General Appearance: Alert, Oriented X3, Cooperative, No acute distress, no facial edema HEENT: Atraumatic, PERRLA, EOMI, Mucous membrane moist/pink Respiratory: Clear to auscultation, Normal air movement Cardiovascular: Regular rate, Normal S1, Normal S2, No murmurs, no chest wall tenderness Abdominal: NO distention, no tenderness, bowel sounds present, no scars noted; Mild scrotal edema Extremities: edema improving, Normal pulses, No tenderness Skin: No rashes, No breakdown, No significant lesion Neuro: Normal gait, Normal speech, Strength at 5/5 X4 ext, Normal tone, Sensation intact, Cranial nerves 3-12 NL, Reflexes 2+ Psych/Mental Status: Mental status NL, Mood NL laboratory and microbiology Laboratory Tests 10/05/24 06:10 Test 10/05/24 06:10 Range/Units Serum Glucose 268 H 74-106 mg/dL Microbiology Date/Time Source Procedure Growth Status 10/04/24 02:44 Nose MRSA Screen - Final Complete Problem List/Assessment/Plan Problem List/Assessment/Plan #Generalized edema/ anasarca likely due to nephrotic syndrome, urine protein 3+ #MESHA due to nephrotic syndrome on CKD 3B #Diabetic nephropathy #Type 2 diabetes, Hgb A1 c 5.8: metformin at home #Hypertensive urgency #Dyslipidemia #Anemia #Overweight, BMI: 28. #Leukocytosis due to steroids #hydronephrosis: left #sp kidney biopsy Bumex 2 mg IV BID Amlodipine 10 mg PO Benazepril 10 mg PO Methylprednisolone 40 mg IV BID ISS: moderate Protonix IV Enoxaparin 40 mg SC Nephrology on board Tylenol PRN Kidney biopsy per nephro Autoimmune panel per nephro Nicardipine drip off Lantus 15 ui SC Ceftriaxone IV Case discussed with Dr Morrison Plan discussed with: Patient, Other (rn) My Orders My Orders Orders - OWEN LARIOS Procedure Category Date Status Time Acetaminophen Tablet PHA 10/04/24 In Process (Tylenol Tablet) 13:30 Labetalol Hcl PHA 10/05/24 In Process (Labetalol Hcl) 08:15 Ceftriaxone 1gm/50ml PHA 10/05/24 In Process D5w (Rocephin) 10:15 Date of Service: Oct 05, 2024 Billing Provider: RALF MORRISON DO Common Visit Codes: [id number] INP/OBS CARE(HIGH) OWEN LARIOS RESIDENT Oct 05, 2024 11:31 RALF MORRISON DO Oct 08, 2024 11:30
[2024-10-05] MEDS ORDERED: MIDAZOLAM HCL 2MG/2ML 2ml VIAL (1mg/ml) ONE (11:41)
[2024-10-05] MEDS ORDERED: fentaNYL CITRATE 100 MCG/2 ML VL ONE (11:41)
[2024-10-05] MEDS ORDERED: LIDOCAINE 2%HCL (LOCAL ANESTH.) INJ 10ml MDV ONE (11:46)
[2024-10-05] MEDS ORDERED: hydrALAZINE HCL 20 MG/ML VL ONE (11:49)
[2024-10-05 13:07] LABS: Anti-Centromere B Antibody <0.2 AI (0.0-0.9); Anti-Jo-1 Antibody <0.2 AI (0.0-0.9); Anti-dsDNA Antibody 1 IU/mL (0-9); Antichromatin Antibody <0.2 AI (0.0-0.9); Antiscleroderma-70 Antibody <0.2 AI (0.0-0.9); RNP Antibody 2.9 AI (0.0-0.9); Sjogren's Anti-SS-A Antibody <0.2 AI (0.0-0.9); Sjogren's Anti-SS-B Antibody <0.2 AI (0.0-0.9); Smith Antibody <0.2 AI (0.0-0.9)
--- NOTE | 2024-10-05 13:17 | DVH ---
US US GUIDANCE FOR NEEDLE PLACEME, HISTORY: RENAL BX PROCEDURE: Informed consent was obtained. Limited ultrasound of the left kidney was obtained. The ov erlying skin was prepped with chlorhexidine which was allowed to dry and draped in the usual sterile fashion. Moderate sedation and 10 mg Hydralazine was given IV. Time out was performed. The skin and s oft tissue were infiltrated with 1% lidocaine, and IV sedation was administered. Under real-time ultr asound guidance, 1 biopsy specimen was obtained using Biopince 18 gauge core biopsy needle. Mnaual pr essure was held for 10 minutes. No immediate complication was noted. DLP 664 SEDATION: Dr. Joy Baldwin was personally responsible for the administration of moderate sedation during the procedure performed, including the use of an independent trained observer who had no other duties during the procedure. The drugs utilized were IV fentanyl and versed (see nursing log for details). The total time of supervision by the attending physician was approximately 30 minutes. FINDINGS: Limited intraprocedural ultrasound demonstrates biopsy needle within the lower renal cortex of left kidney. Small post procedural hematoma is noted. IMPRESSION: CT/ultrasound biopsy of the left kidney. Pathology results pending. Bedrest in the supine position for 3 hours.
[2024-10-05 16:48] VITALS: BP 128/78; PULSE 93; RESP 16; TEMP 98.1; O2SAT 96
[2024-10-05 17:07] LABS: Anti-Centromere B Antibody <0.2 AI (0.0-0.9); Anti-Jo-1 Antibody <0.2 AI (0.0-0.9); Anti-dsDNA Antibody 1 IU/mL (0-9); Antichromatin Antibody <0.2 AI (0.0-0.9); Antiscleroderma-70 Antibody <0.2 AI (0.0-0.9); RNP Antibody 2.5 AI (0.0-0.9); Sjogren's Anti-SS-A Antibody <0.2 AI (0.0-0.9); Sjogren's Anti-SS-B Antibody <0.2 AI (0.0-0.9); Smith Antibody <0.2 AI (0.0-0.9)
[2024-10-05] MEDS ORDERED: DEXTROSE (50%) 50ML SYRG IV PRN (18:45)
--- NOTE | 2024-10-05 19:35 | DVHPN2 ---
Progress Note Date Seen: Oct 05, 2024 Has the PT tested + for MRSA If YES, has PT been informed?: No Medical Necessity Reason Pt with a Central, PICC or Fol: No Subjective Patient reports: No new complaints Review of Systems: HEENT:Normal, CVS:Normal, RESPIRATORY:Normal, GI:Normal, :Normal, MSK:Abnormal, NEURO:Normal Objective vital signs Vital Sign Date Time Temp Pulse Resp B/P (MAP) Pulse Ox O2 Delivery O2 Flow Rate FiO2 10/05/24 17:51 128/78 10/05/24 16:48 98.1 93 16 96 98.1 10/05/24 08:00 Room Air* 0 21 Total Intake and Output 10/04/24 10/04/24 10/05/24 15:00 23:00 07:00 Intake Total 600 ml 200 ml Balance 600 ml 200 ml medications Current Medications Medications Dose Ordered Sig/Jorge Route Start Time Stop Time Status Last Admin Dose Admin Pantoprazole Sodium 40 mg DAILY IV 10/04/24 10:00 10/04/24 11:11 40 MG Amlodipine Besylate 10 mg DAILY PO 10/04/24 10:00 10/04/24 11:11 10 MG Methylprednisolone Sodium Succinate 40 mg BID IV 10/04/24 10:00 10/05/24 10:02 40 MG Bumetanide 2 mg BIDD IV 10/04/24 18:00 10/05/24 17:51 2 MG Acetaminophen 325 mg Q4HP PRN PO 10/04/24 13:30 Labetalol HCl 10 mg Q2HPRN PRN IV 10/05/24 08:15 10/05/24 10:03 10 MG Ceftriaxone Sodium 50 ml @ 100 mls/hr DAILY@09 IV 10/05/24 10:15 Diagnostic Test (Pha) 1 strip IQ4HR 10/05/24 20:00 Insulin Human Regular IQ4HR SC 10/05/24 20:00 Dextrose 50 ml UD PRN IV 10/05/24 18:45 Insulin Glargine 15 units HS SC 10/05/24 22:00 Examination: GENERAL:Normal, HEENT:Normal, NECK:Normal, LUNGS:Normal, CVS:Normal, ABDOMEN:Normal, MSK:Abnormal, SKIN:Normal, NEURO:Normal, :Normal laboratory and microbiology Laboratory Tests 10/05/24 06:10 Test 10/05/24 06:10 Range/Units Serum Glucose 268 H 74-106 mg/dL Microbiology Date/Time Source Procedure Growth Status 10/04/24 02:44 Nose MRSA Screen - Final Complete Problem List/Assessment/Plan Problem List/Assessment/Plan Acute kidney injury on Chronic kidney disease IIIb hemodynamic mediated etiology in the setting of hypertensive emergency Anasarca Nephrotic range proteinuria DM 14-15 years HTN emergency recs bumex iv bid 2mg kidney biopsy today MARIA INES panel, Anca panel, C3-C4, anti GBM antibody as ordered Previous admission myeloma panel noted He has no evidence of hematuria in the past now Urine analysis shows 10 RBCs Hold HANS inhibitor for now BP control 2 g sodium diet We will follow closely Plan discussed with: Patient My Orders My Orders Orders - SHELLY DRISCOLL MD Procedure Category Date Status Time Strict I & O CLARITA 10/04/24 In Process 19:41 SHELLY DRISCOLL MD Oct 05, 2024 19:34
[2024-10-05] MEDS: ACCU-CHEK COMFORT CURVE STRIP VI SCH (20:04)
[2024-10-05] MEDS: InsuLIN REG 1unit/0.01ml Soln (100units/ml) SC SCH (20:15)
[2024-10-05 21:00] VITALS: BP 142/87; PULSE 95; RESP 18; TEMP 98; O2SAT 96
[2024-10-05] MEDS: INSULIN LANTUS (GLARGINE) 1 /0.01ml (100units/ml) SC SCH (21:30)
[2024-10-06] VITALS (8 sets, daily range): BP systolic 134–158; BP diastolic 83–98; PULSE 82–88; RESP 15–20; TEMP 97.9–98.9; O2SAT 92–98
[2024-10-06 06:18] LABS: Basophils # (auto) 0 10 ^3/uL (0-0.2); Eosinophils # (auto) 0 10 ^3/uL (0-0.8); Hematocrit 24.4 % (41.0-53.0); Hemoglobin 8.5 g/dL (13.5-17.5); Lymphocytes # (auto) 0.7 10 ^3/uL (0.4-5.4); Mean Corpuscular Hemoglobin 32.1 pg (28.0-32.0); Mean Corpuscular Volume 91.5 fL (80.0-100.0); Monocytes # (auto) 0.3 10 ^3/uL (0-1.3); Monocytes % (auto) 3.4 % (0.0-12.0); Neutrophils # (auto) 8.7 10 ^3/uL (1.6-8.6); Neutrophils % (auto) 89.6 % (37.0-80.0); Platelet Count (auto) 171 10^3/uL (140-450); Red Blood Cells 2.66 10^6/uL (4.5-5.90); White Blood Cell 9.7 10^3/uL (4.4-10.8)
[2024-10-06 06:35] LABS: Alanine Aminotransferase 34 U/L (7-40); Alkaline Phosphatase 59 U/L (46-116); Anion Gap 6 (5-15); Aspartate Aminotransferase 34 U/L (13-40); BUN/Creatinine Ratio 23.7 (10.0-20.0); Bilirubin, Total 0.3 mg/dL (0.2-1.0); Carbon Dioxide 29 mmol/L (20-31); Chloride 106 mmol/L (98-107); Sodium 141 mmol/L (136-145)
[2024-10-06 06:36] LABS: Albumin 3.1 g/dL (3.2-4.8); Blood Urea Nitrogen 72 mg/dL (9-23); Calcium 8.7 mg/dL (8.7-10.4); Glucose 194 mg/dL (74-106); Potassium 5.1 mmol/L (3.5-5.1); Total Protein 5.4 g/dL (5.7-8.2)
--- NOTE | 2024-10-06 10:24 | DVHPNRES ---
Progress Note Date Seen: Oct 06, 2024 Resident Creating Document: OWEN LARIOS RESIDENT Has the PT tested + for MRSA If YES, has PT been informed?: No Medical Necessity Reason Pt with a Central, PICC or Fol: No Subjective Review of Systems A 29y old PMHX type 2 DM, CKD stage 3, HTN, patient states that since 4 days ago he started to have bilateral leg edema, then escrotum and on friday his face Patient denied any insect bites, allergies or anaphylactic reactions. He denies fever, chills nausea or vomiting. Patient was last seen here September, and managed for hyperkalemia. Pmhx: Diabetes for 14 years, Chronic kidney disease 3b, Hypertension and dyslipidemia Family history:Diabetes Mellitus Pshx : None Social history: student and lives with cousin. Does not drink, smokes weeds 10/05/24: s/p kidney biopsy 10/06/24: DC steroids, BP managment Objective vital signs Vital Sign Date Time Temp Pulse Resp B/P (MAP) Pulse Ox O2 Delivery O2 Flow Rate FiO2 10/06/24 09:08 97.9 87 17 147/98 (114) 92 97.9 10/05/24 08:00 Room Air* 0 21 Total Intake and Output 10/05/24 10/05/24 10/06/24 14:59 22:59 06:59 Intake Total 625 ml 1040 ml Output Total 870 ml Balance 625 ml 170 ml medications Current Medications Medications Dose Ordered Sig/Jorge Route Start Time Stop Time Status Last Admin Dose Admin Pantoprazole Sodium 40 mg DAILY IV 10/04/24 10:00 10/06/24 09:00 40 MG Amlodipine Besylate 10 mg DAILY PO 10/04/24 10:00 10/06/24 09:00 10 MG Bumetanide 2 mg BIDD IV 10/04/24 18:00 10/06/24 05:36 2 MG Acetaminophen 325 mg Q4HP PRN PO 10/04/24 13:30 Labetalol HCl 10 mg Q2HPRN PRN IV 10/05/24 08:15 10/05/24 10:03 10 MG Ceftriaxone Sodium 50 ml @ 100 mls/hr DAILY@09 IV 10/05/24 10:15 10/06/24 08:59 100 MLS/HR Diagnostic Test (Pha) 1 strip IQ4HR 10/05/24 20:00 10/06/24 08:32 1 STRIP Insulin Human Regular IQ4HR SC 10/05/24 20:00 10/06/24 08:37 3 UNITS Dextrose 50 ml UD PRN IV 10/05/24 18:45 Insulin Glargine 15 units HS SC 10/05/24 22:00 10/05/24 21:30 15 UNITS Examination General Appearance: Alert, Oriented X3, Cooperative, No acute distress, no facial edema HEENT: Atraumatic, PERRLA, EOMI, Mucous membrane moist/pink Respiratory: Clear to auscultation, Normal air movement Cardiovascular: Regular rate, Normal S1, Normal S2, No murmurs, no chest wall tenderness Abdominal: NO distention, no tenderness, bowel sounds present, no scars noted Extremities: edema improving, Normal pulses, No tenderness Skin: No rashes, No breakdown, No significant lesion Neuro: Normal gait, Normal speech, Strength at 5/5 X4 ext, Normal tone, Sensation intact, Cranial nerves 3-12 NL, Reflexes 2+ Psych/Mental Status: Mental status NL, Mood NL laboratory and microbiology Laboratory Tests 10/06/24 04:55 Test 10/06/24 04:55 Range/Units Serum Glucose 194 H 74-106 mg/dL Microbiology Date/Time Source Procedure Growth Status 10/04/24 02:44 Nose MRSA Screen - Final Complete Problem List/Assessment/Plan Problem List/Assessment/Plan #Generalized edema/ anasarca likely due to nephrotic syndrome, urine protein 3+ #MESHA due to nephrotic syndrome on CKD 3B #Diabetic nephropathy #Type 2 diabetes, Hgb A1 c 5.8: metformin at home #Hypertensive urgency #Dyslipidemia #Anemia #Overweight, BMI: 28. #Leukocytosis due to steroids #hydronephrosis: left #sp kidney biopsy Bumex 2 mg IV BID Amlodipine 10 mg PO Benazepril 10 mg PO DC Methylprednisolone 40 mg IV BID ISS: moderate Protonix IV Enoxaparin 40 mg SC Nephrology on board Tylenol PRN Kidney biopsy per nephro Autoimmune panel per nephro Nicardipine drip off Lantus 15 ui SC Ceftriaxone IV Case discussed with Dr Morrison Plan discussed with: Patient, Other (rn) My Orders My Orders Orders - OWEN LARIOS Procedure Category Date Status Time Ct Guidance For CT 10/05/24 Resulted Needle Placeme 11:[address] 10/05/24 Resulted Contrast 11:42 Us Guidance For US 10/05/24 Resulted Needle Placeme Insulin Lantus PHA 10/05/24 In Process (Glargine) (Lantus) 22:00 Date of Service: Oct 06, 2024 Billing Provider: RALF MORRISON DO Common Visit Codes: [id number] INP/OBS CARE(HIGH) OWEN LARIOS RESIDENT Oct 06, 2024 10:24 RALF MORRISON DO Oct 08, 2024 11:30
--- NOTE | 2024-10-06 14:32 | DVHPN2 ---
Progress Note Date Seen: Oct 06, 2024 Has the PT tested + for MRSA If YES, has PT been informed?: No Medical Necessity Reason Pt with a Central, PICC or Fol: No Subjective Patient reports: No new complaints, Feels better (reports swelling better) Review of Systems: HEENT:Normal, CVS:Normal, RESPIRATORY:Normal, GI:Normal, :Normal, MSK:Normal, NEURO:Normal Objective vital signs Vital Sign Date Time Temp Pulse Resp B/P (MAP) Pulse Ox O2 Delivery O2 Flow Rate FiO2 10/06/24 12:12 98.3 87 20 158/96 (116) 98 98.3 10/06/24 08:00 Room Air* 0 21 Total Intake and Output 10/05/24 10/05/24 10/06/24 15:00 23:00 07:00 Intake Total 625 ml 1040 ml Output Total 870 ml Balance 625 ml 170 ml medications Current Medications Medications Dose Ordered Sig/Jorge Route Start Time Stop Time Status Last Admin Dose Admin Pantoprazole Sodium 40 mg DAILY IV 10/04/24 10:00 10/06/24 09:00 40 MG Amlodipine Besylate 10 mg DAILY PO 10/04/24 10:00 10/06/24 09:00 10 MG Acetaminophen 325 mg Q4HP PRN PO 10/04/24 13:30 Labetalol HCl 10 mg Q2HPRN PRN IV 10/05/24 08:15 10/05/24 10:03 10 MG Ceftriaxone Sodium 50 ml @ 100 mls/hr DAILY@09 IV 10/05/24 10:15 10/06/24 08:59 100 MLS/HR Diagnostic Test (Pha) 1 strip IQ4HR 10/05/24 20:00 10/06/24 11:36 1 STRIP Insulin Human Regular IQ4HR SC 10/05/24 20:00 10/06/24 11:38 6 UNITS Dextrose 50 ml UD PRN IV 10/05/24 18:45 Insulin Glargine 15 units HS SC 10/05/24 22:00 10/05/24 21:30 15 UNITS Bumetanide 1 mg BIDD IV 10/06/24 18:00 UNV Examination: GENERAL:Normal, HEENT:Normal, NECK:Normal, LUNGS:Normal, CVS:Normal, ABDOMEN:Normal, MSK:Normal, SKIN:Normal, NEURO:Normal, :Normal laboratory and microbiology Laboratory Tests 10/06/24 04:55 Test 10/06/24 04:55 Range/Units Serum Glucose 194 H 74-106 mg/dL Microbiology Date/Time Source Procedure Growth Status 10/04/24 02:44 Nose MRSA Screen - Final Complete Problem List/Assessment/Plan Problem List/Assessment/Plan Acute kidney injury on Chronic kidney disease IIIb hemodynamic mediated etiology in the setting of hypertensive emergency Anasarca Nephrotic range proteinuria DM 14-15 years HTN emergency recs bumex iv bid 1mg kidney biopsy 10/05/24--results to be followed as outpt in 2 weeks in our office--pt to make appt --informed pt MARIA INES panel, Anca panel, C3-C4, anti GBM antibody as ordered--so far reported c3c4 wnl,, 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 Agree with 60 gm CHO diet, increase to 75 gm/meal as able when BG better controlled 2. Insulin as needed to keep BG <180 mg/dl, lantus + ss insulin 3. Encourage continued good oral intakes >75% of meals Expected Outcomes/Goals: Adequate nutrition, improved labs. SHELLY DRISCOLL MD Oct 06, 2024 14:32
[2024-10-06] MEDS: BUMETANIDE 1mg/4ml VIAL (0.25mg/ml) IV SCH (18:07)
[2024-10-07 01:00] VITALS: BP 150/99; PULSE 89; RESP 17; TEMP 99.4; O2SAT 95
[2024-10-07 05:00] VITALS: BP 112/74; PULSE 76; RESP 16; TEMP 98.8; O2SAT 95
[2024-10-07 07:30] LABS: Basophils # (auto) 0 10 ^3/uL (0-0.2); Basophils % (auto) 0.1 % (0.0-2.0); Eosinophils # (auto) 0 10 ^3/uL (0-0.8); Eosinophils % (auto) 0.4 % (0.0-7.0); Hematocrit 26.7 % (41.0-53.0); Hemoglobin 9.5 g/dL (13.5-17.5); Lymphocytes # (auto) 2.2 10 ^3/uL (0.4-5.4); Lymphocytes % (auto) 24.8 % (10.0-50.0); Mean Corpuscular Hemoglobin 32.4 pg (28.0-32.0); Mean Corpuscular Hgb Conc. 35.4 g/dL (32.0-36.0); Mean Corpuscular Volume 91.4 fL (80.0-100.0); Monocytes # (auto) 0.9 10 ^3/uL (0-1.3); Monocytes % (auto) 9.9 % (0.0-12.0); Neutrophils # (auto) 5.8 10 ^3/uL (1.6-8.6); Neutrophils % (auto) 64.8 % (37.0-80.0); Platelet Count (auto) 178 10^3/uL (140-450); Red Blood Cells 2.92 10^6/uL (4.5-5.90); Red Cell Distribution Width 14.4 % (11.8-14.3); White Blood Cell 8.9 10^3/uL (4.4-10.8)
[2024-10-07 07:31] LABS: Albumin 3.2 g/dL (3.2-4.8); Alkaline Phosphatase 60 U/L (46-116); Anion Gap 7 (5-15); Bilirubin, Total 0.3 mg/dL (0.2-1.0); Calcium 9.1 mg/dL (8.7-10.4); Chloride 104 mmol/L (98-107); Potassium 4.1 mmol/L (3.5-5.1); Sodium 142 mmol/L (136-145)
[2024-10-07 07:32] LABS: Alanine Aminotransferase 50 U/L (7-40); Aspartate Aminotransferase 60 U/L (13-40); Blood Urea Nitrogen 74 mg/dL (9-23); Carbon Dioxide 31 mmol/L (20-31); Glucose 109 mg/dL (74-106); Total Protein 5.5 g/dL (5.7-8.2)
[2024-10-07 08:00] VITALS: RESP 18; O2SAT 95
--- NOTE | 2024-10-07 09:02 | DVHDSRES ---
Discharge Summary Date of Admission Resident Creating Document: OWEN LARIOS RESIDENT Oct 03, 2024 at 23:50 Date of Discharge: Oct 07, 2024 Admitting Diagnosis nephrotic syndrome Labs/Diagnostic Data: Laboratory Results Test 10/07/24 08:12 10/07/24 06:34 10/07/24 06:20 10/05/24 04:45 POC Glucose 84 mg/dl (70-106) White Blood Count 8.9 10^3/uL (4.4-10.8) Red Blood Count 2.92 10^6/uL (4.5-5.90) Hemoglobin 9.5 g/dL (13.5-17.5) Hematocrit 26.7 % (41.0-53.0) Mean Corpuscular Volume 91.4 fL (80.0-100.0) Mean Corpuscular Hemoglobin 32.4 pg (28.0-32.0) Mean Corpuscular Hemoglobin Concent 35.4 g/dL (32.0-36.0) Red Cell Distribution Width 14.4 % (11.8-14.3) Platelet Count 178 10^3/uL (140-450) Mean Platelet Volume 9.0 fL (6.9-10.8) Neutrophils (%) (Auto) 64.8 % (37.0-80.0) Lymphocytes (%) (Auto) 24.8 % (10.0-50.0) Monocytes (%) (Auto) 9.9 % (0.0-12.0) Eosinophils (%) (Auto) 0.4 % (0.0-7.0) Basophils (%) (Auto) 0.1 % (0.0-2.0) Neutrophils # (Auto) 5.8 10 ^3/uL (1.6-8.6) Lymphocytes # (Auto) 2.2 10 ^3/uL (0.4-5.4) Monocytes # (Auto) 0.9 10 ^3/uL (0-1.3) Eosinophils # (Auto) 0 10 ^3/uL (0-0.8) Basophils # (Auto) 0 10 ^3/uL (0-0.2) Nucleated Red Blood Cells 0.0 % Sodium Level 142 mmol/L (136-145) Potassium Level 4.1 mmol/L (3.5-5.1) Chloride Level 104 mmol/L (98-107) Carbon Dioxide Level 31 mmol/L (20-31) Anion Gap 7 (5-15) Blood Urea Nitrogen 74 mg/dL (9-23) Creatinine 2.85 mg/dL (0.700-1.30) Glomerular Filtration Rate Calc 29 mL/min (>90) BUN/Creatinine Ratio 26.0 (10.0-20.0) Serum Glucose 109 mg/dL (74-106) Calcium Level 9.1 mg/dL (8.7-10.4) Total Bilirubin 0.3 mg/dL (0.2-1.0) Aspartate Amino Transferase (AST) 60 U/L (13-40) Alanine Aminotransferase (ALT) 50 U/L (7-40) Alkaline Phosphatase 60 U/L (46-116) Total Protein 5.5 g/dL (5.7-8.2) Albumin 3.2 g/dL (3.2-4.8) Urine Creatinine 52.01 mg/dL (30.0-125.0) Urine Sodium 78 mmol/L (40-220) Test 10/04/24 15:50 10/04/24 14:49 10/04/24 05:10 10/03/24 20:20 Prothrombin Time 10.4 sec (9.3-11.8) Prothrombin Time INR 0.98 (0.9-1.15) Activated Partial Thromboplast Time 25.3 SEC (24.5-34.5) Anti-Nuclear Antibody Comment Comment (.) NERY-1 Antibody <0.2 AI (0.0-0.9) SS-A/Ro Antibody <0.2 AI (0.0-0.9) SS-B/La Antibody <0.2 AI (0.0-0.9) Sm Antibody <0.2 AI (0.0-0.9) [employer] Antibody 2.9 AI (0.0-0.9) Scl-70 (Scleroderma) Antibody <0.2 AI (0.0-0.9) Anti-Double Strand DNA Antibody 1 IU/mL (0-9) Chromatin Antibody <0.2 AI (0.0-0.9) Centromere B Antibody <0.2 AI (0.0-0.9) Complement C3 112 mg/dL (82-167) Complement C4 28 mg/dL (12-38) Hemoglobin A1c 5.8 % A1C (<5.7) B-Type Natriuretic Peptide 308.56 pg/mL (0-100) Urine Color Light-yellow (Yellow) Urine Clarity Turbid (Clear) Urine pH 6.0 (5.0-9.0) Urine Specific [place] 1.014 (1.001-1.035) Urine Protein 3+ (Negative) Urine Ketones Negative (Negative) Urine Blood 3+ /uL (Negative) Urine Nitrite Negative (Negative) Urine Bilirubin Negative (Negative) Urine Urobilinogen Normal mg/dL (Negative) Urine Leukocyte Esterase Negative /uL (Negative) Urine RBC 10 /hpf (0 - 3) Urine Microscopic WBC 8 /HPF (0-3) Urine Squamous Epithelial Cells None seen /hpf (<5) Urine Bacteria None seen /hpf (None Seen) Urine Mucus Few (None Seen) Urine Glucose 4+ mg/dL (Normal) Test 10/03/24 12:09 Troponin I High Sensitivity 13 ng/L (</=54) Triglycerides Level 119 mg/dL (< 150) Cholesterol Level 163 mg/dL (< 200) LDL Cholesterol 90 mg/dL (< 100) HDL Cholesterol 47 mg/dL (40-59) Other Laboratory Tests 10/07/24 06:34 Brief Hx & Hospital Course: The patient is a 29-year-old male with a history of type 2 diabetes mellitus, chronic kidney disease stage 3B, hypertension, and dyslipidemia, who presented with progressive generalized edema over the course of four days, starting in the lower extremities and progressing to the scrotum and face. The clinical picture was consistent with nephrotic syndrome, supported by 3+ proteinuria and recent acute kidney injury on a background of diabetic nephropathy. The patient underwent a left kidney biopsy and was recently on high-dose IV steroids, which were discontinued during this admission due to leukocytosis likely induced by steroid therapy. The patient was managed with IV diuretics (Bumex), blood pressure control (amlodipine, benazepril, nicardipine drip), and supportive measures including insulin (Lantus), anticoagulation (enoxaparin), and empiric antibiotics (ceftriaxone). Nephrology oversaw the biopsy and initiated an autoimmune workup. The patients symptoms of edema began improving with diuresis and blood pressure stabilization. At discharge, the patient was hemodynamically stable, and plans were made for close nephrology follow-up for biopsy results and ongoing management of nephrotic syndrome and CKD. Case discussed with Dr Bernard Consults/Reason for consult nephrology due to nephrotic syndrome Operations or Procedures US US GUIDANCE FOR NEEDLE PLACEME, HISTORY: RENAL BX PROCEDURE: Informed consent was obtained. Limited ultrasound of the left kidney was obtained. The overlying skin was prepped with chlorhexidine which was allowed to dry and draped in the usual sterile fashion. Moderate sedation and 10 mg Hydralazine was given IV. Time out was performed. The skin and soft tissue were infiltrated with 1% lidocaine, and IV sedation was administered. Under real-time ultrasound guidance, 1 biopsy specimen was obtained using [employer] 18 gauge core biopsy needle. Mnaual pressure was held for 10 minutes. No immediate complication was noted. DLP 664 SEDATION: Dr. Joy Baldwin was personally responsible for the administration of moderate sedation during the procedure performed, including the use of an independent trained observer who had no other duties during the procedure. The drugs utilized were IV fentanyl and versed (see nursing log for details). The total time of supervision by the attending physician was approximately 30 minutes. FINDINGS: Limited intraprocedural ultrasound demonstrates biopsy needle within the lower renal cortex of left kidney. Small post procedural hematoma is noted. IMPRESSION: CT/ultrasound biopsy of the left kidney. Pathology results pending. Bedrest in the supine position for 3 hours. Condition at Discharge: Stable Final Diagnosis/Problems List #Generalized edema/ anasarca likely due to nephrotic syndrome, urine protein 3+ #MESHA due to hypertensive emergency on CKD 3B: fu tt as outpatient #Diabetic nephropathy #Type 2 diabetes, Hgb A1 c 5.8: metformin at home #Hypertensive urgency #Dyslipidemia #Anemia #Overweight, BMI: 28. #Leukocytosis due to steroids #hydronephrosis: left #sp kidney biopsy #elevated BNP due to kidney disease #Possible sepsis due to UTI Discharge Disposition: Home Discharge Instruct/Medications Diet: Consistent carbohydrate Activity: Light activity Follow Up/Referral: f/u with [facility] Medications: see prescription Discharge Statement: "Patient was advised to return to the ER or call 911 if any headaches, dizziness, shortness of breath, chest pain, abdominal pain, bleeding, fevers, or worsening of medical condition. Patient was counseled about treatment plan, medications, possible side effects, patientverbalized understanding. All questions were answered to the best of my ability. This discharge took greater then 30 minutes in planning, reviewing documentation, counseling the patient, and discussing with other team members." ASSESSMENT ASSESSMENT Assessment nephrotic syndrome OWEN LARIOS RESIDENT Oct 07, 2024 09:02
[2024-10-07 09:05] LABS: Protein, Urine 145.8 mg/dL (1-14)
[2024-10-07 10:40] VITALS: BP 151/92; PULSE 76; RESP 18; TEMP 98.8; O2SAT 95
--- NOTE | 2024-10-07 10:50 | DVHPN2 ---
Progress Note Date Seen: Oct 07, 2024 Has the PT tested + for MRSA If YES, has PT been informed?: No Medical Necessity Reason Pt with a Central, PICC or Fol: No Subjective Patient reports: No new complaints Review of Systems: HEENT:Normal, CVS:Normal, RESPIRATORY:Normal, GI:Normal, :Normal, MSK:Normal, NEURO:Normal Objective vital signs Vital Sign Date Time Temp Pulse Resp B/P (MAP) Pulse Ox O2 Delivery O2 Flow Rate FiO2 10/07/24 10:40 98.8 76 18 95 10/07/24 09:34 151/92 10/07/24 08:00 Room Air* 0 21 Total Intake and Output 10/06/24 10/06/24 10/07/24 15:00 23:00 07:00 Intake Total 50 ml 2500 ml 250 ml Output Total 3800 ml 2475 ml Balance 50 ml -1300 ml -2225 ml medications Current Medications Medications Dose Ordered Sig/Jorge Route Start Time Stop Time Status Last Admin Dose Admin Pantoprazole Sodium 40 mg DAILY IV 10/04/24 10:00 10/07/24 09:33 40 MG Amlodipine Besylate 10 mg DAILY PO 10/04/24 10:00 10/07/24 09:34 10 MG Acetaminophen 325 mg Q4HP PRN PO 10/04/24 13:30 Labetalol HCl 10 mg Q2HPRN PRN IV 10/05/24 08:15 10/05/24 10:03 10 MG Ceftriaxone Sodium 50 ml @ 100 mls/hr DAILY@09 IV 10/05/24 10:15 10/07/24 09:33 100 MLS/HR Diagnostic Test (Pha) 1 strip IQ4HR 10/05/24 20:00 10/07/24 04:26 1 STRIP Insulin Human Regular IQ4HR SC 10/05/24 20:00 10/06/24 20:35 3 UNITS Dextrose 50 ml UD PRN IV 10/05/24 18:45 Insulin Glargine 15 units HS SC 10/05/24 22:00 10/06/24 21:50 15 UNITS Bumetanide 1 mg BIDD IV 10/06/24 18:00 10/07/24 06:20 1 MG laboratory and microbiology Laboratory Tests 10/07/24 06:34 Test 10/07/24 06:34 Range/Units Serum Glucose 109 H 74-106 mg/dL Microbiology Date/Time Source Procedure Growth Status 10/04/24 02:44 Nose MRSA Screen - Final Complete Problem List/Assessment/Plan Problem List/Assessment/Plan Acute kidney injury on Chronic kidney disease IIIb hemodynamic mediated etiology in the setting of hypertensive emergency Anasarca Nephrotic range proteinuria DM 14-15 years HTN emergency recs bumex iv daily here kidney biopsy 10/05/24--results to be followed as outpt in 2 weeks in our office--pt to make appt --informed pt MARIA INES panel, Anca panel, C3-C4, anti GBM antibody as ordered--so far reported c3c4 wnl,, 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 Agree with 60 gm CHO diet, increase to 75 gm/meal as able when BG better controlled 2. Insulin as needed to keep BG <180 mg/dl, lantus + ss insulin 3. Encourage continued good oral intakes >75% of meals Expected Outcomes/Goals: Adequate nutrition, improved labs. SHELLY DRISCOLL MD Oct 07, 2024 10:50
[2024-10-07] MEDS ORDERED: HYDR25TA87 PO (11:52)
[2024-10-07 13:00] LABS: 24 Hr. Total Protein, Urine 4738.5 mg/24 Hr (<149.1)
[2024-10-07 13:07] LABS: Cytoplasmic (C-ANCA) <1:20 titer (Neg:<1:20); Perinuclear (P-ANCA) <1:20 titer (Neg:<1:20)
[2024-10-07] MEDS ORDERED: FURO1TAB31 PO (17:57)
[2024-10-08 20:07] LABS: Antiglomerular BM Antibody <0.2 units (0.0-0.9); Antimyeloperoxidase (MPO) Ab <0.2 units (0.0-0.9); Antiproteinase 3 (PR-3) Ab <0.2 units (0.0-0.9)
== END 2024-10-07 12:05 | disposition home or self-care (01) | DRG 720 ==
LOC: ER 11:34 → EDBD 11:34 → OVERFLOW 23:50 → EAST 10-04 02:08
PROVIDERS: ADMIT Internal Medicine; ATTEND Emergency Medicine
PROC: 0TB13ZX Excision of Left Kidney, Percutaneous Approach, Diagnostic (ICD-10-PCS; principal; 2024-10-05)
DX: A41.9 Sepsis, unspecified organism (principal); N17.9 Acute kidney failure, unspecified; N13.30 Unspecified hydronephrosis; E11.22 Type 2 diabetes mellitus with diabetic chronic kidney disease; D64.9 Anemia, unspecified; D72.829 Elevated white blood cell count, unspecified; E11.65 Type 2 diabetes mellitus with hyperglycemia; N39.0 Urinary tract infection, site not specified; I16.1 Hypertensive emergency; E66.3 Overweight; E78.5 Hyperlipidemia, unspecified; I16.0 Hypertensive urgency; I12.9 Hypertensive chronic kidney disease with stage 1 through stage 4 chronic kidney disease, or unspecified chronic kidney disease; N18.32 Chronic kidney disease, stage 3b; T38.0X5A Adverse effect of glucocorticoids and synthetic analogues, initial encounter; R80.9 Proteinuria, unspecified; E87.5 Hyperkalemia; Z79.84 Long term (current) use of oral hypoglycemic drugs; Z79.899 Other long term (current) drug therapy; Z79.4 Long term (current) use of insulin; Z87.891 Personal history of nicotine dependence; Z83.3 Family history of diabetes mellitus; Z68.28 Body mass index [BMI] 28.0-28.9, adult; Z82.49 Family history of ischemic heart disease and other diseases of the circulatory system; Y92.89 Other specified places as the place of occurrence of the external cause
CPT/HCPCS: 10005; 36415; 71045; 74150; 76775; 76942; 77012; 80048; 80053; 80061; 81001; 82570; 82962; 83036; 83516; 83520; 83880; 84156; 84300; 84484; 85025; 85610; 85730; 86160; 86225; 86235; 86256; 87081; 96374; 96375; 99291; 99292; G0378; J1815; J2003; J2250; J2470

== ENCOUNTER → 2024-11-08 | Outpatient (CLI) | payer MEDICAID ==
[~2024-11-08] MED LIST changes: -FLU01T PO; +FURO1TAB31 PO; +HYDR25TA87 PO
[2024-11-08 11:15] LABS: Alanine Aminotransferase 33 U/L (7-40); Alkaline Phosphatase 74 U/L (46-116); Anion Gap 4 (5-15); BUN/Creatinine Ratio 15.3 (10.0-20.0); Carbon Dioxide 28 mmol/L (20-31); Total Protein 5.8 g/dL (5.7-8.2)
[2024-11-08 11:16] LABS: Albumin 3.4 g/dL (3.2-4.8); Aspartate Aminotransferase 19 U/L (13-40); Bilirubin, Total 0.3 mg/dL (0.2-1.0); Blood Urea Nitrogen 37 mg/dL (9-23); Calcium 8.7 mg/dL (8.7-10.4); Chloride 114 mmol/L (98-107); Glucose 143 mg/dL (74-106); Potassium 5.5 mmol/L (3.5-5.1); Sodium 146 mmol/L (136-145)
== END | disposition home or self-care (01) ==
LOC: LAB 10:36
PROVIDERS: ATTEND Internal Medicine Nephrology
DX: E11.22 Type 2 diabetes mellitus with diabetic chronic kidney disease (principal); N18.30 Chronic kidney disease, stage 3 unspecified; E11.21 Type 2 diabetes mellitus with diabetic nephropathy; E21.3 Hyperparathyroidism, unspecified; E55.9 Vitamin D deficiency, unspecified; M10.9 Gout, unspecified; N39.0 Urinary tract infection, site not specified; R80.9 Proteinuria, unspecified; D63.1 Anemia in chronic kidney disease
CPT/HCPCS: 36415; 80053

== ENCOUNTER 2024-12-06 15:41 | Outpatient (CLI) | payer MEDICAID ==
[2024-12-06 16:20] LABS: Urine Bacteria None Seen /hpf (None Seen)
[2024-12-06 16:31] LABS: Urine Blood 1+ /uL (Negative); Urine Clarity Clear (Clear); Urine Color Light-Yellow (Yellow); Urine Mucus FEW (None Seen); Urine Protein, UAD 3+ (Negative); Urine Specific Gravity 1.013 (1.001-1.035); Urine Squamous Epithelial Cell FEW /hpf (<5); Urine Urobilinogen Normal (Negative); Urine WBC 1 /HPF (0-3)
[2024-12-06 16:45] LABS: Alanine Aminotransferase 31 U/L (7-40); Albumin 3.5 g/dL (3.2-4.8); Alkaline Phosphatase 75 U/L (46-116); Anion Gap 5 (5-15); Aspartate Aminotransferase 22 U/L (13-40); BUN/Creatinine Ratio 17.2 (10.0-20.0); Calcium 9.1 mg/dL (8.7-10.4); Carbon Dioxide 26 mmol/L (20-31); Cholesterol 195 mg/dL (< 200); Sodium 145 mmol/L (136-145)
[2024-12-06 16:46] LABS: Bilirubin, Total 0.3 mg/dL (0.2-1.0); Blood Urea Nitrogen 46 mg/dL (9-23); Chloride 114 mmol/L (98-107); Glucose 215 mg/dL (74-106); HDL Cholesterol 40 mg/dL (40-59); LDL Cholesterol 120 mg/dL (< 100); Potassium 5.1 mmol/L (3.5-5.1); Triglycerides 200 mg/dL (< 150)
[2024-12-06 16:47] LABS: T3 Total 0.95 ng/mL (0.60-1.81)
[2024-12-06 16:48] LABS: Free T4 (Free Thyroxine) 1.13 ng/dL (0.89-1.76)
[2024-12-06 16:50] LABS: Basophils # (auto) 0.1 10 ^3/uL (0-0.2); Basophils % (auto) 2.2 % (0.0-2.0); Eosinophils # (auto) 0.2 10 ^3/uL (0-0.8); Eosinophils % (auto) 5.2 % (0.0-7.0); Hematocrit 28.4 % (41.0-53.0); Hemoglobin 9.5 g/dL (13.5-17.5); Lymphocytes # (auto) 1.1 10 ^3/uL (0.4-5.4); Lymphocytes % (auto) 27.1 % (10.0-50.0); Mean Corpuscular Hemoglobin 30.9 pg (28.0-32.0); Mean Corpuscular Hgb Conc. 33.5 g/dL (32.0-36.0); Mean Corpuscular Volume 92.3 fL (80.0-100.0); Monocytes # (auto) 0.3 10 ^3/uL (0-1.3); Monocytes % (auto) 6.5 % (0.0-12.0); Neutrophils # (auto) 2.3 10 ^3/uL (1.6-8.6); Nucleated Red Blood Cells % 0.1 %; Platelet Count (auto) 189 10^3/uL (140-450); Red Blood Cells 3.07 10^6/uL (4.5-5.90); Red Cell Distribution Width 13.9 % (11.8-14.3); White Blood Cell 3.9 10^3/uL (4.4-10.8)
[2024-12-06 17:03] LABS: Creatinine, Urine 91.57 mg/dL (30.0-125.0)
== END 2024-12-06 17:00 | disposition home or self-care (01) ==
LOC: LAB 15:41
PROVIDERS: ATTEND Internal Medicine
DX: Z00.01 Encounter for general adult medical examination with abnormal findings (principal); Z79.899 Other long term (current) drug therapy
CPT/HCPCS: 36415; 80053; 80061; 81001; 82043; 82570; 83036; 84439; 84443; 84480; 85025

== ENCOUNTER 2024-12-20 12:13 | Emergency (ER) | payer MEDICAID ==
[~2024-12-20] VITALS: Ht 180.3 cm; Wt 77.7 kg
--- NOTE | 2024-12-20 13:03 | ED.PDOC ---
History of Present Illness HPI Comments HPI: 29y M who presents to the ED for chief complaint of facial swelling. - pt states he has been having facial swelling for the past 2 days - pt states he has been having associated headache and dizziness but denies any other symptoms - pt states he has had swelling in the past but states the swelling was on the L side of his body - pt states the swelling in the past was due to his history of kidney problems and history of kidney disease - pt in the ED is ax0x4 and denies any associated symptoms Past Medical history: HTN, DM, CKD, liver disease, HLD Past Surgical history: denies Medications: hydralazine, lantus, ASA Allergies: nkda Social History: denies ETOH, denies tobacco use, denies drug use HPI: Poor Historian. Patient states he gets these symptoms in the past when his creatinine is seven vated. Patient has history of chronic kidney disease not on dialysis. REVIEW OF SYSTEMS: CONSTITUTIONAL: Denies acute: fever, diaphoresis, chills, generalized weakness. HEAD: Denies acute: headache, photophobia Eyes: Denies acute: Double vision, vision loss, eye pain, eye discharge. EARS: Denies acute: tinnitus, hearing loss, ear discharge, ear pain, THROAT: Denies acute: sore throat, swelling, difficulty swallowing , pain with swallowing, change in voice. NECK: Denies acute: neck pain, neck swelling, stiff neck. HEART: Denies acute : chest pain, palpitations, LUNGS: Denies acute: SOB, wheezing, cough, hemoptysis ABDOMEN: Denies acute: abdominal pain, Nausea, Vomiting, diarrhea, melena , hematemesis, hematochezia SKIN: Denies acute: rash, redness, lesions, itchiness. EXTREMITIES: Denies acute: calf pain, numbness, tingling, weakness, denies pain in extremity. Denies acute: Low back pain. Neuro: Denies acute: focal neurological deficit, motor or sensory focal neurological deficit, tremors, seizure like activity, confusion, dizziness, change in mental status, loss of bowel or bladder function, cauda equina like symptoms. : Denies acute: dysuria, hematuria, flank pain, increase in urinary frequency. PSYCH: Denies acute: hallucination, suicidal ideation, homicidal ideation. PHYSICAL EXAM: General: -----no---acute distress, awake and alert. Head: normocephalic, atraumatic. Neck: supple, trachea is midline, no swelling. Throat: Normal phonation. Patent airway, no obstruction, no swelling, no erythema, no exudates. Eyes:, no erythema, no purulent discharge, no proptosis, no icterus. Heart: regular rate, regular rhythm, no significant murmur appreciated. Lungs: no apparent respiratory distress, Able to speak in full sentences. No wheezing, no rhonchi, no crackles. No stridors Clear to auscultation bilaterally. Abdomen: non tender to palpation, non distended, soft, no guarding, no rebound, + bowel sounds. Neuro: Awake, Alert, oriented to name, self, situation, follows commands GCS=15. Speech is normal. Skin: no petechia, no purpura, no cyanosis, non-pale, not jaundice. Lower extremities: --no - Pitting edema no deformity, no focal swelling, no calf TTP. Makes eye contact. moves all four extremities. Face: no apparent facial droop. Patient has some nonspecific generalized puffiness in the eyelids and bilateral zygomatic area. Ambulating in the ED independently. PERRLA, EOM-I CN 2-12 are grossly intact, Pedal pulses are palpable. No nystagmus. No nuchal rigidity, Kernig's sign, Brudzinski's sign, no meningeal signs. ED COURSE: DISCLAIMER: This medical document was created using an electronic medical record system with voice recognition software and computerized dictation system. Although this document has been carefully reviewed, there might still be some phonetic and typographical errors. Occasional wrong-word or "sound-alike" substitutions may have occurred due to the inherent limitations of voice recognition software. These areas are purely typographical due to imperfections of the software programs and do not reflect any compromise in the patient's medical care. Please read the chart carefully and recognize, using context, where these substitutions have occurred. Chief Complaint: Face pain Time Seen by MD: 13:02 Primary Care Provider: UNKNOWN Reviewed Notes: Medications, Allergies Allergies: Coded Allergies: NO KNOWN ALLERGIES (Unverified , 12/01/18) Home Meds Active Scripts Nitrofurantoin Monohydrate Mac (Macrobid) 100 Mg Cap, 100 MG PO BID for 7 Days, #14 CAP Prov:VERNON LAZARO DO 12/20/24 Furosemide (Lasix) 40 Mg Tab, 40 MG PO BID for 30 Days, #60 TAB Prov:OWEN LARIOS [facility] 10/07/24 Hydralazine HCl (Hydralazine HCl) 25 Mg Tab, 50 MG PO BID for 30 Days, #120 TAB Prov:OWEN LARIOS RESIDENT 10/07/24 Sodium Zirconium Cyclosilicate (Lokelma) 5 Gm Demond, 10 GM PO BID for 30 Days, #30 PACK Prov:TOVA ZHAO MD 09/09/24 Amlodipine Besylate (Amlodipine Besylate) 10 Mg Tab, 1 TAB PO DAILY for 30 Days, #30 TAB 5 Refills Prov:KVNG LAM 08/13/24 Ferrous Sulfate (Iron) 325 Mg Tab, 325 MG PO DAILY for 30 Days, #30 TAB Prov:KVNG LAM [facility] 08/13/24 Pantoprazole Sodium Sesquihydr (Protonix) 40 Mg Tab, 40 MG PO DAILY for 30 Days, #30 TAB Prov:GIA REIS [facility] 04/20/24 Reported Medications Metformin Hydrochloride (Metformin Hcl) 1,000 Mg Tab, 1 TAB PO DAILY, #60 TAB 5 Refills 04/17/24 Insulin Glargine (Lantus) 100 Unit/Ml Inj, 10 UNIT SC PCHS, INJ 12/03/18 Discontinued Scripts Cephalexin Monohydrate (Cephalexin) 500 Mg Cap, 1 CAP PO TID for 7 Days, #30 CAP Prov:VERNON LAZARO DO 12/20/24 Information Source: Patient Mode of Arrival: Ambulatory Past Medical History PAST MEDICAL HISTORY: Anemia, CKF, DM, GERD, High Lipids, HTN, Liver Surgical History: Denies all surgeries Family History Family History: Family hx of Cancer Social History Smoker: Quit Greater Than 1 Year Alcohol: Rarely Drugs: Marijuana Lives In: Home Was a procedure done? Was a procedure done?: No Differential Dx Considerations may include: Allergic reaction, angioedema, sepsis, infection, volume overload, electrolyte abnormality. X-Ray, Labs, Meds, VS Vital Signs Date Time Temp Pulse Resp B/P (MAP) Pulse Ox O2 Delivery O2 Flow Rate FiO2 12/20/24 16:52 87 18 133/96 (108) 99 12/20/24 15:45 133/96 12/20/24 13:47 84 17 95 Room Air 12/20/24 13:47 98.9 84 16 146/101 (116) 95 98.9 12/20/24 12:22 98.5 87 16 148/104 (119) 99 98.5 Lab Test 12/20/24 12:55 12/20/24 12:30 Range/Units White Blood Count 4.5 4.4-10.8 10^3/uL Red Blood Count 3.21 L 4.5-5.90 10^6/uL Hemoglobin 10.0 L 13.5-17.5 g/dL Hematocrit 28.6 L 41.0-53.0 % Mean Corpuscular Volume 89.2 80.0-100.0 fL Mean Corpuscular Hemoglobin 31.3 28.0-32.0 pg Mean Corpuscular Hemoglobin Concent 35.1 32.0-36.0 g/dL Red Cell Distribution Width 13.7 11.8-14.3 % Platelet Count 158 140-450 10^3/uL Mean Platelet Volume 8.6 6.9-10.8 fL Neutrophils (%) (Auto) 71.1 37.0-80.0 % Lymphocytes (%) (Auto) 18.3 10.0-50.0 % Monocytes (%) (Auto) 8.9 0.0-12.0 % Eosinophils (%) (Auto) 1.1 0.0-7.0 % Basophils (%) (Auto) 0.6 0.0-2.0 % Neutrophils # (Auto) 3.2 1.6-8.6 10 ^3/uL Lymphocytes # (Auto) 0.8 0.4-5.4 10 ^3/uL Monocytes # (Auto) 0.4 0-1.3 10 ^3/uL Eosinophils # (Auto) 0 0-0.8 10 ^3/uL Basophils # (Auto) 0 0-0.2 10 ^3/uL Nucleated Red Blood Cells 0.1 % Sodium Level 140 136-145 mmol/L Potassium Level 4.2 3.5-5.1 mmol/L Chloride Level 105 98-107 mmol/L Carbon Dioxide Level 25 20-31 mmol/L Anion Gap 10 5-15 Blood Urea Nitrogen 36 H 9-23 mg/dL Creatinine 3.04 H 0.700-1.30 mg/dL Glomerular Filtration Rate Calc 27 >90 mL/min BUN/Creatinine Ratio 11.8 10.0-20.0 Serum Glucose 191 H 74-106 mg/dL Lactic Acid Level 1.2 0.4-2.0 mmol/L Calcium Level 8.8 8.7-10.4 mg/dL Total Bilirubin 0.7 0.2-1.0 mg/dL Aspartate Amino Transferase (AST) 20 <34 U/L Alanine Aminotransferase (ALT) 20 7-40 U/L Alkaline Phosphatase 67 46-116 U/L B-Type Natriuretic Peptide 28.34 0-100 pg/mL Total Protein 5.8 5.7-8.2 g/dL Albumin 3.3 3.2-4.8 g/dL Urine Color Light-yellow Yellow Urine Clarity Turbid H Clear Urine pH 6.0 5.0-9.0 Urine Specific [place] 1.017 1.001-1.035 Urine Protein 3+ H Negative Urine Ketones Negative Negative Urine Blood 2+ H Negative /uL Urine Nitrite Negative Negative Urine Bilirubin Negative Negative Urine Urobilinogen Normal Negative mg/dL Urine Leukocyte Esterase Negative Negative /uL Urine RBC 1 0 - 3 /hpf Urine Microscopic WBC 4 H 0-3 /HPF Urine Squamous Epithelial Cells Few <5 /hpf Urine Amorphous Crystals Few None Seen /hpf Urine Bacteria Few H None Seen /hpf Urine Granular Casts Few 0 /lpf Urine Mucus Few None Seen Urine Glucose 2+ H Normal mg/dL Time of 1ST Reevaluation: 00:00 Reevaluation 1ST: Patient Education/Counseling: Diagnosis, Treatment Family Education/Counseling: No Family Present Comments Patient presented with the above HPI.---swelling/puffiness of the face---workup was initiated. patient was found with the above mentioned diagnosis. Patient states that he gets these symptoms when his creatinine is messed up. He is not a dialysis patient. No airway compromise or anaphylactic like reaction. the following medications were ordered: please refer to order lists of meds and tests obtained by myself Dr. Lazaro. Patient ED course and VS have been stabilized. Patient has been reassessed in the ED and remained in a stable condition. Pertinent incidental findings were discussed with the patient and/or family. Patient/family voices understanding and is agreeable with plan. Patient has been observed in the ED adequate length of time to insure improvement/stability. Escalation of care considered: Consideration of escalation to observation or admission Patient was DISCHARGED home in a stable condition. All the reports of any imaging studies that were ordered by myself were reviewed by myself. Departure 1 Departure Time of Disposition: 16:15 Impression: Primary Impression: Chronic kidney disease Additional Impression: UTI (urinary tract infection) Disposition: HOME / SELF CARE / HOMELESS Condition: Stable Additional Instructions: Additional instructions: You MUST follow-up with your primary care/family doctor in 1 to 2 days. If you are unable to see your primary care/family doctor, please return to our emergency room for re-assessment and re-evaluation in 1 to 2 days. Return to the emergency room here in our facility or to the nearest ER [facility] if your symptoms change or worsen. CONSULTATIONS: you MUST Follow-up for consultation as soon as possible with: --nephrology in 1-2 days. Please call for appointment.- You MUST call the consultants office yourself to make an appointment. You may need to arrange that through your insurance and/or your primary/family doctor. If you are unable to see the software security consultant in 1 to 2 days, you must return to our emergency room (or any other ER of your choice) for re-assessment and re- evaluation. Adequate fluid hydration. Repeat basic metabolic panel in 24-48 hours to check your creatinine level. e-Prescriptions Nitrofurantoin Monohydrate Mac (Macrobid) 100 Mg Cap 100 MG PO BID for 7 Days, #14 CAP Prov: VERNON LAZARO DO 12/20/24 Discharged With: Self Critical Care Note Critical Care Time?: No I personally scribed for VERNON LAZARO DO ([email or web address]) on 12/20/24 at 13:03. Electronically submitted by Bradley Knowles ([email or web address]). I personally scribed for VERNON LAZARO DO ([email or web address]) on 12/20/24 at 19:22. Electronically submitted by Bradley Knowles ([email or web address]). VERNON LAZARO DO Dec 20, 2024 13:03
[2024-12-20 13:22] LABS: Basophils # (auto) 0 10 ^3/uL (0-0.2); Basophils % (auto) 0.6 % (0.0-2.0); Eosinophils # (auto) 0 10 ^3/uL (0-0.8); Eosinophils % (auto) 1.1 % (0.0-7.0); Hematocrit 28.6 % (41.0-53.0); Lymphocytes # (auto) 0.8 10 ^3/uL (0.4-5.4); Lymphocytes % (auto) 18.3 % (10.0-50.0); Mean Corpuscular Hemoglobin 31.3 pg (28.0-32.0); Mean Corpuscular Hgb Conc. 35.1 g/dL (32.0-36.0); Mean Corpuscular Volume 89.2 fL (80.0-100.0); Monocytes # (auto) 0.4 10 ^3/uL (0-1.3); Monocytes % (auto) 8.9 % (0.0-12.0); Neutrophils # (auto) 3.2 10 ^3/uL (1.6-8.6); Neutrophils % (auto) 71.1 % (37.0-80.0); Nucleated Red Blood Cells % 0.1 %; Platelet Count (auto) 158 10^3/uL (140-450); Red Blood Cells 3.21 10^6/uL (4.5-5.90); Red Cell Distribution Width 13.7 % (11.8-14.3); White Blood Cell 4.5 10^3/uL (4.4-10.8)
[2024-12-20 13:34] LABS: Alanine Aminotransferase 20 U/L (7-40); Albumin 3.3 g/dL (3.2-4.8); Alkaline Phosphatase 67 U/L (46-116); Anion Gap 10 (5-15); Aspartate Aminotransferase 20 U/L (<34); BUN/Creatinine Ratio 11.8 (10.0-20.0); Bilirubin, Total 0.7 mg/dL (0.2-1.0); Blood Urea Nitrogen 36 mg/dL (9-23); Calcium 8.8 mg/dL (8.7-10.4); Carbon Dioxide 25 mmol/L (20-31); Chloride 105 mmol/L (98-107); Glucose 191 mg/dL (74-106); Potassium 4.2 mmol/L (3.5-5.1); Sodium 140 mmol/L (136-145); Total Protein 5.8 g/dL (5.7-8.2)
[2024-12-20 13:47] VITALS: TEMP 98.9
[2024-12-20] MEDS: FUROSEMIDE 20 MG/2 ML VIAL IV ONE (15:45)
[2024-12-20 16:03] LABS: Urine Amorphous Crystal FEW /hpf (None Seen); Urine Bacteria FEW /hpf (None Seen); Urine Blood 2+ /uL (Negative); Urine Clarity Turbid (Clear); Urine Color Light-Yellow (Yellow); Urine Mucus FEW (None Seen); Urine Protein, UAD 3+ (Negative); Urine Specific Gravity 1.017 (1.001-1.035); Urine Squamous Epithelial Cell FEW /hpf (<5); Urine Urobilinogen Normal (Negative); Urine WBC 4 /HPF (0-3)
[2024-12-20] MEDS ORDERED: CEPH500C PO (16:19)
[2024-12-20] MEDS ORDERED: NITR-87 PO (16:22)
[2024-12-20 16:52] VITALS: BP 133/96; PULSE 87; RESP 18; O2SAT 99
== END 2024-12-20 16:53 | disposition home or self-care (01) ==
LOC: ER 12:13
DX: I12.9 Hypertensive chronic kidney disease with stage 1 through stage 4 chronic kidney disease, or unspecified chronic kidney disease (principal); E11.22 Type 2 diabetes mellitus with diabetic chronic kidney disease; N18.9 Chronic kidney disease, unspecified; E78.5 Hyperlipidemia, unspecified; N39.0 Urinary tract infection, site not specified; Z79.899 Other long term (current) drug therapy
CPT/HCPCS: 36415; 80053; 81001; 83605; 83880; 85025

== ENCOUNTER 2024-12-24 13:14 | Emergency (ER) | payer MEDICAID ==
[~2024-12-24] VITALS: Ht 182.9 cm; Wt 77.4 kg
[~2024-12-24 13:14] MED LIST changes: +NITR-87 PO
--- NOTE | 2024-12-24 13:53 | ED.PDOC ---
Back pain HPI HPI Comments HPI: [id number] male presents to the emergency department with a chief complaint of back pain onset 5 days. Patient states he has been experiencing bilateral upper back pain, radiates to mid back for the past 5 days. He noticed pain improves when he sleeps on the floor. Currently rates pain 10/10. Denies dysuria, cynthia turia, nausea, vomiting, diarrhea, headache,dizziness, fevers, chills. No other symptoms or modifying factors present at this time. Initial Vitals BP: 135/84 HR: 80 RR: 16 O2 Sat: 98% Temp: 97.3 Past Medical history: HTN, DM, CKD, anemia, GERD, liver cirrhosis Past Surgical history: kidney biopsy Medications: Macrobid Social History: marijuana, ETOH rarely Allergies: NKDA HPI: Poor Historian. No fall or trauma or injury. REVIEW OF SYSTEMS: CONSTITUTIONAL: Denies acute: fever, diaphoresis, chills, generalized weakness. HEAD: Denies acute: headache, photophobia Eyes: Denies acute: Double vision, vision loss, eye pain, eye discharge. EARS: Denies acute: tinnitus, hearing loss, ear discharge, ear pain, THROAT: Denies acute: sore throat, swelling, difficulty swallowing , pain with swallowing, change in voice. NECK: Denies acute: neck pain, neck swelling, stiff neck. HEART: Denies acute : chest pain, palpitations, LUNGS: Denies acute: SOB, wheezing, cough, hemoptysis ABDOMEN: Denies acute: abdominal pain, Nausea, Vomiting, diarrhea, melena , hematemesis, hematochezia SKIN: Denies acute: rash, redness, lesions, itchiness. EXTREMITIES: Denies acute: calf pain, numbness, tingling, weakness, denies pain in extremity. Neuro: Denies acute: focal neurological deficit, motor or sensory focal neurological deficit, tremors, seizure like activity, confusion, dizziness, change in mental status, loss of bowel or bladder function, cauda equina like symptoms. : Denies acute: dysuria, hematuria, flank pain, increase in urinary frequency. PSYCH: Denies acute: hallucination, suicidal ideation, homicidal ideation. PHYSICAL EXAM: General: ----no----acute distress, awake and alert. Head: normocephalic, atraumatic. Neck: supple, trachea is midline, no swelling. Throat: Normal phonation. Eyes:, no erythema, no purulent discharge, no proptosis, no icterus. Heart: regular rate, regular rhythm, no significant murmur appreciated. Lungs: no apparent respiratory distress, Able to speak in full sentences. No wheezing, no rhonchi, no crackles. No stridors Clear to auscultation bilaterally. Abdomen: non tender to palpation, non distended, soft, no guarding, no rebound, + bowel sounds. Neuro: Awake, Alert, oriented to name, self, situation, follows commands GCS=15. Speech is normal. Skin: no petechia, no purpura, no cyanosis, non-pale, not jaundice. Lower extremities: --no - Pitting edema no deformity, no focal swelling, no calf TTP. Makes eye contact. moves all four extremities. Face: no apparent facial droop. No CVA tenderness to percussion bilaterally. Ambulating in the ED independently. ED COURSE: DISCLAIMER: This medical document was created using an electronic medical record system with voice recognition software and computerized dictation system. Although this docu ment has been carefully reviewed, there might still be some phonetic and typographical errors. Occasional wrong-word or "sound-alike" substitutions may have occurred due to the inherent limitations of voice recognition software. These areas are purely typographical due to imperfections of the software programs and do not reflect any compromise in the patient's medical care. Please read the chart carefully and recognize, using context, where these substitutions have occurred. Chief Complaint: Back Pain Time Seen by MD: 13:45 Primary Care Provider: NINOSKA Reviewed Notes: Medications, Allergies Allergies: Coded Allergies: NO KNOWN ALLERGIES (Unverified , 12/01/18) Home Meds Active Scripts Nitrofurantoin Monohydrate Mac (Macrobid) 100 Mg Cap, 100 MG PO BID for 7 Days, #14 CAP Prov:VERNON LAZARO DO 12/20/24 Furosemide (Lasix) 40 Mg Tab, 40 MG PO BID for 30 Days, #60 TAB Prov:OWEN LARIOS 10/07/24 Hydralazine HCl (Hydralazine HCl) 25 Mg Tab, 50 MG PO BID for 30 Days, #120 TAB Prov:OWEN LARIOS RESIDENT 10/07/24 Sodium Zirconium Cyclosilicate (Lokelma) 5 Gm Demond, 10 GM PO BID for 30 Days, #30 PACK Prov:TOVA ZHAO MD 09/09/24 Amlodipine Besylate (Amlodipine Besylate) 10 Mg Tab, 1 TAB PO DAILY for 30 Days, #30 TAB 5 Refills Prov:KVNG LAM 08/13/24 Ferrous Sulfate (Iron) 325 Mg Tab, 325 MG PO DAILY for 30 Days, #30 TAB Prov:KVNG LAM 08/13/24 Pantoprazole Sodium Sesquihydr (Protonix) 40 Mg Tab, 40 MG PO DAILY for 30 Days, #30 TAB Prov:GIA REIS 04/20/24 Reported Medications Metformin Hydrochloride (Metformin Hcl) 1,000 Mg Tab, 1 TAB PO DAILY, #60 TAB 5 Refills 04/17/24 Insulin Glargine (Lantus) 100 Unit/Ml Inj, 10 UNIT SC PCHS, INJ 12/03/18 Discontinued Scripts Cephalexin Monohydrate (Cephalexin) 500 Mg Cap, 1 CAP PO TID for 7 Days, #30 CAP Prov:VERNON LAZARO DO 12/20/24 Information Source: Patient Mode of Arrival: Ambulatory Timing: Days Duration: Since onset Location of Back pain: (B) Upper back Severity: Moderate Prehospital treatment: None Quality: Sharp Onset: Spontaneous Modifying Factors: Nothing Past Medical History PAST MEDICAL HISTORY: Anemia, CKF, DM, GERD, High Lipids, HTN, Liver Surgical History (Other): kidney biopsy Family History Family History: Family hx of Cancer Social History Smoker: Quit Greater Than 1 Year Alcohol: Rarely Drugs: Marijuana Lives In: Home Was a procedure done? Was a procedure done?: No Back Pain Differential Dx Differential Diagnosis: Other (DDX included but not limited to Cauda Equina syndrome, lumbar radiculopathy, arthritis, disk herniation, sciatica, muscle strain, epidural abscess, transverse myelitis. Cord compression, spinal foraminal stenosis, spinal fractures, spondylosis, central canal stenosis, trauma, muscle sprain/strain, aneurysm/dissection, kidney stones, shingles, arthritis, [place], neoplasm.) X-Ray, Labs, Meds, VS Vital Signs Date Time Temp Pulse Resp B/P (MAP) Pulse Ox O2 Delivery O2 Flow Rate FiO2 12/24/24 15:34 79 18 98 Room Air 12/24/24 15:34 98.7 79 18 117/81 (93) 98 98.7 12/24/24 13:42 97.3 80 16 135/84 (101) 98 97.3 Lab Test 12/24/24 13:47 12/24/24 13:30 Range/Units White Blood Count 4.5 4.4-10.8 10^3/uL Red Blood Count 3.28 L 4.5-5.90 10^6/uL Hemoglobin 10.1 L 13.5-17.5 g/dL Hematocrit 29.1 L 41.0-53.0 % Mean Corpuscular Volume 88.6 80.0-100.0 fL Mean Corpuscular Hemoglobin 30.7 28.0-32.0 pg Mean Corpuscular Hemoglobin Concent 34.7 32.0-36.0 g/dL Red Cell Distribution Width 13.8 11.8-14.3 % Platelet Count 193 140-450 10^3/uL Mean Platelet Volume 9.1 6.9-10.8 fL Neutrophils (%) (Auto) 66.4 37.0-80.0 % Lymphocytes (%) (Auto) 22.0 10.0-50.0 % Monocytes (%) (Auto) 8.3 0.0-12.0 % Eosinophils (%) (Auto) 2.3 0.0-7.0 % Basophils (%) (Auto) 1.0 0.0-2.0 % Neutrophils # (Auto) 3.0 1.6-8.6 10 ^3/uL Lymphocytes # (Auto) 1.0 0.4-5.4 10 ^3/uL Monocytes # (Auto) 0.4 0-1.3 10 ^3/uL Eosinophils # (Auto) 0.1 0-0.8 10 ^3/uL Basophils # (Auto) 0 0-0.2 10 ^3/uL Nucleated Red Blood Cells 0.0 % Sodium Level 137 136-145 mmol/L Potassium Level 4.8 3.5-5.1 mmol/L Chloride Level 102 98-107 mmol/L Carbon Dioxide Level 28 20-31 mmol/L Anion Gap 7 5-15 Blood Urea Nitrogen 33 H 9-23 mg/dL Creatinine 3.25 H 0.700-1.30 mg/dL Glomerular Filtration Rate Calc 25 >90 mL/min BUN/Creatinine Ratio 10.2 10.0-20.0 Serum Glucose 327 #H 74-106 mg/dL Lactic Acid Level 1.6 0.4-2.0 mmol/L Calcium Level 8.9 8.7-10.4 mg/dL Total Bilirubin 0.5 0.2-1.0 mg/dL Aspartate Amino Transferase (AST) 16 <34 U/L Alanine Aminotransferase (ALT) 19 7-40 U/L Alkaline Phosphatase 67 46-116 U/L Total Protein 5.9 5.7-8.2 g/dL Albumin 3.4 3.2-4.8 g/dL Urine Color Yellow Yellow Urine Clarity Turbid H Clear Urine pH 6.0 5.0-9.0 Urine Specific [place] 1.017 1.001-1.035 Urine Protein 3+ H Negative Urine Ketones Negative Negative Urine Blood 2+ H Negative /uL Urine Nitrite Negative Negative Urine Bilirubin Negative Negative Urine Urobilinogen Normal Negative mg/dL Urine Leukocyte Esterase Negative Negative /uL Urine RBC 2 0 - 3 /hpf Urine Microscopic WBC 2 0-3 /HPF Urine Squamous Epithelial Cells None seen <5 /hpf Urine Amorphous Crystals Few None Seen /hpf Urine Bacteria None seen None Seen /hpf Urine Hyaline Casts Few 0 - 2 /lpf Urine Glucose 4+ H Normal mg/dL Time of 1ST Reevaluation: 14:15 Reevaluation 1ST: Unchanged Patient Education/Counseling: Diagnosis, Treatment Family Education/Counseling: No Family Present Comments Patient presented with the above HPI.----musculoskeletal back pain without fall or trauma--workup was initiated. patient was found with the above mentioned diagnosis. the following medications were ordered: please refer to order lists of meds and tests obtained by myself Dr. Lazaro. Patient ED course and VS have been stabilized. Patient has been reassessed in the ED and remained in a stable condition. Pertinent incidental findings were discussed with the patient and/or family. Patient/family voices understanding and is agreeable with plan. Patient has been observed in the ED adequate length of time to insure improvement/stability. Escalation of care considered: Consideration of escalation to observation or admission Patient was DISCHARGED home in a stable condition. All the reports of any imaging studies that were ordered by myself were reviewed by myself. Departure 1 Departure Time of Disposition: 14:54 Impression: Primary Impression: Musculoskeletal pain Additional Impression: Chronic renal disease Disposition: HOME / SELF CARE / HOMELESS Condition: Stable Additional Instructions: Additional instructions: You MUST follow-up with your primary care/family doctor in 1 to 2 days. If you are unable to see your primary care/family doctor, please return to our emergency room for re-assessment and re-evaluation in 1 to 2 days. Return to the emergency room here in our facility or to the nearest ER [facility] if your symptoms change or worsen. CONSULTATIONS: you MUST Follow-up for consultation as soon as possible with: --nephrology and rheumatology in 1-2 days. Please call for appointment You MUST call the consultants office yourself to make an appointment. You may need to arrange that through your insurance and/or your primary/family doctor. If you are unable to see the lean process deployment consultant in 1 to 2 days, you must return to our emergency room (or any other ER of your choice) for re-assessment and re- evaluation. Adequate fluid hydration. Discharged With: Self Critical Care Note Critical Care Time?: No I personally scribed for VERNON LAZARO DO ([email or web address]) on 12/24/24 at 13:53. Electronically submitted by Gillian Vuong ([email or web address]). VERNON LAZARO DO Dec 24, 2024 13:53
[2024-12-24 14:03] LABS: Urine Bacteria None Seen /hpf (None Seen)
[2024-12-24 14:17] LABS: Basophils # (auto) 0 10 ^3/uL (0-0.2); Eosinophils # (auto) 0.1 10 ^3/uL (0-0.8); Eosinophils % (auto) 2.3 % (0.0-7.0); Hematocrit 29.1 % (41.0-53.0); Hemoglobin 10.1 g/dL (13.5-17.5); Mean Corpuscular Hemoglobin 30.7 pg (28.0-32.0); Mean Corpuscular Hgb Conc. 34.7 g/dL (32.0-36.0); Mean Corpuscular Volume 88.6 fL (80.0-100.0); Monocytes # (auto) 0.4 10 ^3/uL (0-1.3); Monocytes % (auto) 8.3 % (0.0-12.0); Neutrophils % (auto) 66.4 % (37.0-80.0); Platelet Count (auto) 193 10^3/uL (140-450); Red Blood Cells 3.28 10^6/uL (4.5-5.90); Red Cell Distribution Width 13.8 % (11.8-14.3); White Blood Cell 4.5 10^3/uL (4.4-10.8)
[2024-12-24 14:20] LABS: Urine Amorphous Crystal FEW /hpf (None Seen); Urine Blood 2+ /uL (Negative); Urine Clarity Turbid (Clear); Urine Color Yellow (Yellow); Urine Hyaline Cast FEW /lpf (0 - 2); Urine Protein, UAD 3+ (Negative); Urine Specific Gravity 1.017 (1.001-1.035); Urine Squamous Epithelial Cell None Seen /hpf (<5); Urine Urobilinogen Normal (Negative); Urine WBC 2 /HPF (0-3)
[2024-12-24 14:26] LABS: Alanine Aminotransferase 19 U/L (7-40); Albumin 3.4 g/dL (3.2-4.8); Alkaline Phosphatase 67 U/L (46-116); Anion Gap 7 (5-15); Aspartate Aminotransferase 16 U/L (<34); BUN/Creatinine Ratio 10.2 (10.0-20.0); Bilirubin, Total 0.5 mg/dL (0.2-1.0); Calcium 8.9 mg/dL (8.7-10.4); Carbon Dioxide 28 mmol/L (20-31); Chloride 102 mmol/L (98-107); Potassium 4.8 mmol/L (3.5-5.1); Sodium 137 mmol/L (136-145); Total Protein 5.9 g/dL (5.7-8.2)
[2024-12-24 14:27] LABS: Blood Urea Nitrogen 33 mg/dL (9-23); Glucose 327 mg/dL (74-106)
[2024-12-24 15:34] VITALS: BP 117/81; PULSE 79; RESP 18; TEMP 98.7; O2SAT 98
== END 2024-12-24 15:48 | disposition home or self-care (01) ==
LOC: ER 13:14
DX: I12.9 Hypertensive chronic kidney disease with stage 1 through stage 4 chronic kidney disease, or unspecified chronic kidney disease (principal); N18.9 Chronic kidney disease, unspecified; E11.22 Type 2 diabetes mellitus with diabetic chronic kidney disease; M79.18 Myalgia, other site; F10.90 Alcohol use, unspecified, uncomplicated; F12.90 Cannabis use, unspecified, uncomplicated; K21.9 Gastro-esophageal reflux disease without esophagitis; E78.5 Hyperlipidemia, unspecified; K74.60 Unspecified cirrhosis of liver; Z87.891 Personal history of nicotine dependence; Z86.2 Personal history of diseases of the blood and blood-forming organs and certain disorders involving the immune mechanism; Z79.84 Long term (current) use of oral hypoglycemic drugs; Z79.899 Other long term (current) drug therapy; Y90.9 Presence of alcohol in blood, level not specified
CPT/HCPCS: 36415; 80053; 81001; 83605; 85025

== ENCOUNTER 2025-03-28 12:36 | Outpatient (CLI) | payer MEDICAID ==
[2025-03-28 13:12] LABS: Hematocrit 28.2 % (41.0-53.0); Hemoglobin 9.5 g/dL (13.5-17.5); Mean Corpuscular Hemoglobin 31.0 pg (28.0-32.0); Mean Corpuscular Volume 92.1 fL (80.0-100.0); Nucleated Red Blood Cells % 0.3 %
[2025-03-28 13:45] LABS: Potassium 4.9 mmol/L (3.5-5.1)
[2025-03-28 13:46] LABS: Anion Gap 8 (5-15); Carbon Dioxide 26 mmol/L (20-31)
[2025-03-28 13:47] LABS: Calcium 8.2 mg/dL (8.7-10.4); Chloride 111 mmol/L (98-107); Sodium 145 mmol/L (136-145)
[2025-03-28 13:51] LABS: BUN/Creatinine Ratio 13.2 (10.0-20.0)
[2025-03-28 13:52] LABS: Blood Urea Nitrogen 43 mg/dL (9-23); Glucose 123 mg/dL (74-106)
[2025-03-28 14:04] LABS: Triglycerides 155 mg/dL (< 150)
[2025-03-28 14:05] LABS: Cholesterol 172 mg/dL (< 200)
[2025-03-28 14:07] LABS: HDL Cholesterol 38 mg/dL (40-59)
[2025-03-29 08:07] LABS: RPR Non Reactive (Non Reactive)
[2025-03-30 06:07] LABS: Chlamydia Trachomatis, NAA Negative (Negative); Neisseria gonorrhoeae, NAA Negative (Negative)
== END 2025-03-28 17:00 | disposition home or self-care (01) ==
LOC: LAB 12:36
PROVIDERS: ATTEND Internal Medicine
DX: Z11.59 Encounter for screening for other viral diseases (principal); Z79.899 Other long term (current) drug therapy
CPT/HCPCS: 36415; 80048; 80061; 83036; 85025; 86592; 86695; 86696; 86703; 86735; 86762; 86765; 86787; 86803